=== PATIENT | female | born 1970 | race Caucasian/White ===

== ENCOUNTER 2020-08-18 15:48 | Outpatient (REF) | payer MEDICAID, SELFPAY ==
--- NOTE | 2020-08-18 16:02 | XR_ITS ---
EXAMINATION: XR lumbar spine 4V min, XR hip RT min 2V CLINICAL INFORMATION: Right-sided back pain. Right hip pain. COMPARISON: Lumbosacral spine dated 08/30/17. TECHNIQUE: Lumbosacral spine 3 views. Right hip 2 views. FINDINGS: LUMBOSACRAL SPINE: Severe degenerative disc disease at L4-L5 has progressed from the prior study. There is loss of the normal disc space with endplate sclerosis and marginal osteophytosis. Grade 1 anterolisthesis of L4 on L5 is unchanged. Disc spaces are otherwise well-maintained. The sacroiliac joints are unremarkable in appearance. The paravertebral soft tissues are unremarkable. RIGHT HIP: The femoral head is well contained within a normally formed acetabulum. The joint space appears well-maintained. No abnormality is demonstrated. XR/XR lumbar spine 4V min IMPRESSION: 1. Severe degenerative disc disease at L4-L5 with interval progression. Otherwise unremarkable appearance of the lumbosacral spine. 2. Unremarkable examination of the right hip.
--- NOTE | 2020-08-18 16:03 | XR_ITS ---
EXAMINATION: XR lumbar spine 4V min, XR hip RT min 2V CLINICAL INFORMATION: Right-sided back pain. Right hip pain. COMPARISON: Lumbosacral spine dated 08/30/17. TECHNIQUE: Lumbosacral spine 3 views. Right hip 2 views. FINDINGS: LUMBOSACRAL SPINE: Severe degenerative disc disease at L4-L5 has progressed from the prior study. There is loss of the normal disc space with endplate sclerosis and marginal osteophytosis. Grade 1 anterolisthesis of L4 on L5 is unchanged. Disc spaces are otherwise well-maintained. The sacroiliac joints are unremarkable in appearance. The paravertebral soft tissues are unremarkable. RIGHT HIP: The femoral head is well contained within a normally formed acetabulum. The joint space appears well-maintained. No abnormality is demonstrated. XR/XR hip RT min 2V IMPRESSION: 1. Severe degenerative disc disease at L4-L5 with interval progression. Otherwise unremarkable appearance of the lumbosacral spine. 2. Unremarkable examination of the right hip.
== END 2020-08-18 15:49 | disposition home or self-care (01) ==
LOC: HO.XRAY 15:48
PROVIDERS: PCP Family Medicine; Visit Provider Family Medicine
DX: M25.551 Pain in right hip (principal); M54.41 Lumbago with sciatica, right side; M79.604 Pain in right leg
CPT/HCPCS: 72110; 73502

== ENCOUNTER 2020-08-20 11:26 | Emergency (ER) | payer MEDICAID, SELFPAY ==
[2020-08-20 11:38] VITALS: BP 132/84; PULSE 84; PULSE 86; RESP 16; RESP 18; TEMP 36.6; TEMP 37.1; O2SAT 98; O2SAT 99; BMI 26.7
--- NOTE | 2020-08-20 11:45 | ED_ITS ---
HPI - General Adult General Chief complaint: General Medical Stated complaint: lump on breast Time Seen by Provider: 08/20/20 11:41 Source: patient Mode of arrival: ambulatory Limitations: no limitations History of Present Illness MD complaint: lump on left breast Onset (ago): day(s) (3) Location: chest (left breast next to sternum) Radiation: non-radiation Severity: moderate Quality: burning and aching Pain Consistency: constant Relieving factors: none Exacerbating factors: none Associated symptoms: denies other symptoms Treatments prior to arrival: other (had sebaceous cyst with US and mammogram - no fam hx of cancer, last 3 days cyst became infected) Related Data Previous Rx's Medication Instructions Recorded cephalexin 500 mg PO TID 7 Days #21 cap 08/20/20 doxycycline hyclate 100 mg PO BID 7 Days #14 cap 08/20/20 hydrocodone-acetaminophen 1 tab PO Q6H PRN #12 tab 08/20/20 ondansetron 4 mg PO Q8H PRN #20 tab 08/20/20 Allergies Allergy/AdvReac Type Severity Reaction Status Date / Time No Known Allergies Allergy Unverified 06/29/20 15:27 Review of Systems Review of Systems: Constitutional : No Fever, No Chills ENT/Mouth : No sore throat, No Rhinorrhea Eyes: No Eye Pain, No Swelling, No Redness Cardiovascular : No Chest Pain, No SOB Respiratory : No Cough, No Sputum Gastrointestinal : No Nausea, No Vomiting, No Diarrhea, No abdominal Pain Genitourinary : No Dysuria, No Hematuria Musculoskeletal : No joint pain, No Myalgias, No Joint Swelling Skin : pos Skin Lesions, positive skin rash Neuro : No Weakness, No Numbness, No Headache Psych : No Anxiety, No Depression Heme/Lymph: No Bruising, No Bleeding,No Lymphadenopathy Endocrine : No Polyuria, No Polydipsia All other systems reviewed and are negative PMFSH Past Medical History Medical History No known health problems Social History Social History (Updated 08/20/20 @ 11:46 by Mira Madison DO) Smoking Status: Current every day smoker Smoked in Last 30 Days: Yes Use of substances other than those prescribed or required for medical reasons: No Substance Use Type: Marijuana Substance Use Frequency: Occasionally Last Used Substance: Days (ago) Any prior treatment program specific to substance use: No Advance Directives: No Advance Directives Information Provided: Yes Physical Exam Vital Signs: Vital Signs: Last Vital Signs Temp 98.7 F 08/20/20 11:38 Pulse 86 08/20/20 11:38 Resp 18 08/20/20 11:38 BP 132/84 08/20/20 11:38 Pulse Ox 99 08/20/20 11:38 Body Mass Index 26.7 Appearance: Alert. Oriented X3. No acute distress. Eyes: Pupils equal, round and reactive to light. ENT: Pharynx normal. Neck: Normal inspection. Neck supple. CVS: Normal heart rate and rhythm. Pulses normal. Respiratory: No respiratory distress. Breath sounds normal. Chest: L breast 3 cm superficial fluctuant area with small overlying erythema no drainage, does not involve areola or nippe Abdomen: Soft and nontender. Skin: Skin warm and dry. Normal skin color. Normal skin turgor. Extremities: No lower extremity edema. No calf ttp Neuro: Oriented X 3. No motor deficit. No sensory deficit. Procedures Abscess I/D Site: chest Side (if applicable): left Local Anesthetic: lidocaine 1% and other anesthetic (LMX) Amount of anesthesia used (mL): 5 Technique: needle aspiration Amount of fluid expressed (mL): 4 Sent for culture/gram staining?: No Irrigation: No Packing used?: none Medical Decision Making MDM Narrative Medical decision making narrative: 50 yo female with known sebaceous cyst on L chest wall - now infected with abscess no systemic symptoms, not diabetic will need labs, zosyn, I/D anticipate DC home, prior US and mammogram of that area, not toxic appearing, does not involve areola or nipple Lab Data Result diagrams: 08/20/20 11:53 08/20/20 11:53 Labs: Lab Results 08/20/20 08/20/20 08/20/20 Range/Units 11:53 11:53 11:53 WBC 7.6 (4.8-10.8) X10*3/uL RBC 4.24 (4.20-5.50) X10*6/uL Hgb 12.3 (12.0-16.0) g/dl Hct 37.0 (37-47) % MCV 87.3 (80-98) fL MCH 29.0 (27.0-33.0) pg MCHC 33.2 (31.0-35.0) g/dl RDW 12.8 (11.0-16.0) % Plt Count 247 (160-400) X10*3/uL MPV 10.3 (9.4-12.3) fL Immature Gran % (Auto) 0.3 (0.0-0.4) % Neut % (Auto) 69.5 (45-73) % Lymph % (Auto) 20.1 (20-40) % [place] % (Auto) 6.3 (2-11) % Eos % (Auto) 3.3 (0-4) % Baso % (Auto) 0.5 (0-2) % Lymph # (Auto) 1.5 (1.2-4.9) X10*3/uL [place] # (Auto) 0.5 (0.1-1.2) X10*3/uL Eos # (Auto) 0.3 (0.0-0.4) X10*3/uL Baso # (Auto) 0.0 (0.0-0.2) X10*3/uL Abs Immat Gran (auto) 0.02 (0.00-0.03) X10*3/uL Absolute Neuts (auto) 5.3 (2.0-8.3) X10*3/uL Absolute Nucleated RBC 0.000 (0.0-0.012) X10*3/uL Nucleated RBC % (auto) 0.0 (0.0-0.2) /100WBC Hold Blue Top SEE NOTE Sodium 140 (135-145) mmol/L Potassium 3.5 (3.3-5.1) mmol/l Chloride 108 (96-108) mmol/L Carbon Dioxide 24 (22-29) mmol/L Anion Gap 12 (12-20) BUN 16 (9-16) mg/dL Creatinine 0.72 (0.5-1.4) mg/dL Estim Creat Clear Calc 92.4 Estimated GFR > 60 Random Glucose 108 (60-115) mg/dL Calcium 8.6 (8.4-10.2) mg/dL Discharge Plan Discharge Clinical Impression: Abscess Patient Disposition: Home, Self-Care Instructions: Abscess (ED) Additional Instructions: return to ED for any worsening symptoms or concerns it is okay to shower but do not soak area in tub, you need to see a surgeon for this Prescriptions: New hydrocodone-acetaminophen 5-325 mg tablet 1 tab PO Q6H PRN (Reason: pain) Qty: 12 RF: 0 ondansetron 4 mg tablet,disintegrating 4 mg PO Q8H PRN (Reason: nausea and vomiting) Qty: 20 RF: 0 cephalexin 500 mg capsule 500 mg PO TID 7 Days Qty: 21 RF: 0 doxycycline hyclate 100 mg capsule 100 mg PO BID 7 Days Qty: 14 RF: 0 Referrals: Bella Simeon MD [Physician] - 2 days Stand Alone Forms: Work/School Release
[2020-08-20] MEDS: 0.9 % Sodium Chloride 1,000 ML 999 ML IVCONT (12:02)
[2020-08-20] MEDS: ondansetron HCL 4 MG/2 ML VIAL IVPUSH (12:03)
[2020-08-20] MEDS: Morphine Sulfate 4 MG/ML CARTRIDGE IVPUSH (12:03)
[2020-08-20 12:04] LABS: MANUAL DIFF FLAG NO
[2020-08-20 12:05] LABS: Basophils Percent Auto 0.5 % (0-2); Eosinophils Absolute Auto 0.3 X10*3/uL (0.0-0.4); Eosinophils Percent Auto 3.3 % (0-4); Hemoglobin 12.3 g/dl (12.0-16.0); Imm Gran Abs Auto 0.02 X10*3/uL (0.00-0.03); Imm Gran Pct Auto 0.3 % (0.0-0.4); Lymphocytes Absolute Auto 1.5 X10*3/uL (1.2-4.9); Lymphocytes Percent Auto 20.1 % (20-40); Mean Corpuscular HGB Conc 33.2 g/dl (31.0-35.0); Mean Corpuscular Volume 87.3 fL (80-98); Mean Platelet Volume 10.3 fL (9.4-12.3); Monocytes Absolute Auto 0.5 X10*3/uL (0.1-1.2); Monocytes Percent Auto 6.3 % (2-11); Neutrophils Absolute Auto 5.3 X10*3/uL (2.0-8.3); Neutrophils Percent Auto 69.5 % (45-73); Platelet Count 247 X10*3/uL (160-400); Red Blood Count 4.24 X10*6/uL (4.20-5.50); Red Cell Distribution Width 12.8 % (11.0-16.0); White Blood Count 7.6 X10*3/uL (4.8-10.8)
[2020-08-20] MEDS: Piperacillin Sodium/Tazobactam 3.375 GM in 0.9 % Sodium Chloride 50 ML IV (12:06)
[2020-08-20] MEDS: Lidocaine HCl 1 % 20 ML VIAL 5 ML SUBCUT (12:07)
[2020-08-20] MEDS: Lidocaine 4 % Cream KIT 1 APPL TOPICAL (12:10)
[2020-08-20] MEDS: Lidocaine HCl 1 % MPF 5 ML VIAL (12:16)
[2020-08-20 12:19] LABS: Anion Gap 12 (12-20); Blood Urea Nitrogen 16 mg/dL (9-16); Calcium 8.6 mg/dL (8.4-10.2); Carbon Dioxide 24 mmol/L (22-29); Chloride 108 mmol/L (96-108); Creatinine Clr Calc Pharmacy 92.4; Estimated Glomerular Filt Rate > 60; Glucose Random 108 mg/dL (60-115); Potassium 3.5 mmol/l (3.3-5.1); Sodium 140 mmol/L (135-145)
[2020-08-20 12:50] VITALS: BP 129/90; PULSE 78; RESP 14; TEMP 37.1; O2SAT 100
[2020-08-20] MEDS: HYDROcodone Bit/Acetam 5/325 TABLET 1 TAB PO (13:01)
== END 2020-08-20 13:14 | disposition home or self-care (01) ==
PROVIDERS: Emergency Provider Emergency Medicine; PCP Family Medicine
DX: N61.1 Abscess of the breast and nipple (principal); N63.0 Unspecified lump in unspecified breast; Z79.899 Other long term (current) drug therapy
CPT/HCPCS: 10060; 36415; 80048; 85025; 96365; 96375; 99284; J2270; J2405; J2543

== ENCOUNTER → 2020-08-30 14:26 | Outpatient (BNVA) | payer MEDICAID, SELFPAY | PROVIDERS: PCP Family Medicine; Referring Provider Family Medicine; Visit Provider Surgery | DX: N60.82 Other benign mammary dysplasias of left breast (principal); Z98.890 Other specified postprocedural states | CPT/HCPCS: 99202 ==

== ENCOUNTER 2020-09-29 09:00 | Outpatient (RCR) | payer MEDICAID, SELFPAY ==
--- NOTE | 2020-09-15 16:05 | MHC.PT.EP ---
[facility] [place] Office [place] Office [place] Office [address] Magdaleno Montanez [address] [phone] F: [phone] F: [phone] F: [phone] F: [phone] Physical Therapy Plan of Care Date of Evaluation: 09/15/20 Date of Surgery: NA Diagnosis: back pain Assessment: Pt presents with low back pain and leg pain that began about 6 months ago. She has associated radiculopathy and pain in the right LE. She has poor sitting posture, poor functional mobility, impaired sleeping position, and impaired sitting posture, impaired functional mobility. She has been limited at work, and limited at home. She has pain while driving, walking, sitting, laying down. She is having poor sleep. She is a good candidate for Physical Therapy. Frequency and Duration: The patient will be seen 2x/week x 4 week Short Term Goals: 1.Pt to able to demonstrate proper sitting posture with the use of a lumbar roll to decrease aggravating factors. 2. Pt to be able to demonstrate proper posture for common leisure activities such as crocheting and phone/tablet use. 3. For the patient to demonstrate proper upright sitting posture with use of the lumbar roll to improve compliance and carryover. Penitentiary Goals: 4 weeks - The patient to demonstrate proper lifting mechanics for household chore activities to show improved functional mobility. 4 weeks - The patient to report no leg or hip pain in order to show centralization of pain and reduction of lumbar derangement 4 weeks - Pt to be able to demonstrate self management of lumbar pain by demonstration of HEP. Treatment Plan: Modalities to reduce pain, spasms and effusion. Manual therapy to restore motion and function. Therapeutic exercise to improve strength and flexibility. Neuromuscular re-education for posture and balance. Therapeutic activities to return to functional activities of daily living. Please sign and return to therapist. Thank you for your referral.
== END 2020-12-22 15:20 | disposition other institution (70) ==
LOC: HO.PT 09:00
PROVIDERS: PCP Family Medicine; Visit Provider Family Medicine
DX: M54.41 Lumbago with sciatica, right side (principal)
CPT/HCPCS: 97110; 97112; 97116; 97140; 97162; 97535

== ENCOUNTER → 2020-10-20 09:31 | Outpatient (BNVA) | payer MEDICAID, SELFPAY | PROVIDERS: PCP Family Medicine; Visit Provider Surgery | DX: N60.82 Other benign mammary dysplasias of left breast (principal) | CPT/HCPCS: 99212 ==

== ENCOUNTER 2020-10-30 08:51 | Day surgery (SDC) | payer MEDICAID, SELFPAY ==
[2020-10-30 09:22] VITALS: BP 128/86; PULSE 80; RESP 16; TEMP 36.7; O2SAT 98; BMI 22.7
[2020-10-30] MEDS: Lactated Ringers 1,000 ML 100 ML IVCONT (09:38)
[2020-10-30] MEDS: ceFAZolin Sodium/Dextrose,Iso 2 GM/50 ML PIGGYBACK IV (09:38)
--- NOTE | 2020-10-30 10:04 | P.CONAN_ITS ---
[facility] Past Medical History Medical History Anxiety and depression Back pain with right-sided sciatica Menometrorrhagia No known health problems Restless legs syndrome (RLS) Smoker Family History Family History Brother Hx of cancer of lung Mother Hx of ovarian cancer Family history of problems with anesthesia: No Surgical History Surgical History (Updated 10/30/20 @ 10:06 by Nataliya Stone) H/O colonoscopy History of removal of ovarian cyst History of Problems with Anesthesia: No Social History Social History (Updated 10/30/20 @ 10:23 by Nataliya Stone) Smoking Status: Current every day smoker Cigarettes Per Day: 6 Smoked in Last 30 Days: Yes Use of substances other than those prescribed or required for medical reasons: No Substance Use Type: Marijuana Advance Directives: No Advance Directives Information Provided: Yes Meds Allergies Allergy/AdvReac Type Severity Reaction Status Date / Time No Known Allergies Allergy Verified 10/20/20 09:52 Home Medications Medication Instructions Recorded Confirmed Type No Known Home Meds 10/20/20 10/20/20 History Exam Exam Date and Time: October 30, 2020 1004 Height,Weight and Vital Signs: Height 5 ft 7 in Weight 65.771 kg Last Vital Signs Temp 98.0 F 10/30/20 09:22 Pulse 80 10/30/20 09:22 Resp 16 10/30/20 09:22 BP 128/86 10/30/20 09:22 Pulse Ox 98 10/30/20 09:22 Airway Mallampati Class: II TM Dist: >3cm Neck ROM: Full Loose/Missing/Broken Teeth: No (5 crowns intact) Heart: RRR Lungs: CTAB Assessment and Plan Assessment Anesthesia Assessment: Anesthesia Plan Discussed and Chart Reviewed Final Anesthetic Review NPO: Yes ASA Class: II Final Preanesthetic Review: No Changes in Pt Med Stat, Meds/Allgs Chart Reviewed, Consent Obtained/Reviewed and Anes Risks/Benef Reviewed Patient Risk: Low Procedure Risk: Low Assessment/Block/Sedation in SS: Assess/Block/Sedation-SS Anesthetic Plan Anesthetic Plan: MAC: Disposition: Standard PACU
--- NOTE | 2020-10-30 11:00 | MHC.SHP ---
Pre-Procedural Eval Section A The patient is an INPATIENT: No Changes since office visit: Yes Patient answered all questions; No Cold of Flu in the past 2 weeks, No New Medical Problems and No Changes in Medication The History & Physical has been completed within 30 days and I have reviewed it.: Yes Section B Chief Complaint: sebaceous cyst of skin of left breast Allergies: Allergies Allergy/AdvReac Type Severity Reaction Status Date / Time No Known Allergies Allergy Verified 10/20/20 09:52 Plan Diagnosis/Plan: Unchanged I have reviewed the history and physical and performed a pertinent physical examination on my patient. No changes have occurred unless specified.
--- NOTE | 2020-10-30 11:46 | P.BOP_ITS ---
Brief Operative Note Date of Service: 10/30/20 Pre-op diagnosis: Left breast skin cyst Post-op diagnosis: same Procedure: Excision of left breast skin cyst Implants: none Surgeon: Shaheed Rose MD Anesthesia: MAC Central Office Inspector: Riana Granado Estimated blood loss (mL): 2 Pathology: other (left breast skin cyst) Condition: stable Disposition: PACU
--- NOTE | 2020-10-30 11:48 | P.OP_ITS ---
Operative Note Operative Note Date of Service: 10/30/20 Narrative: Preoperative diagnosis: Left breast skin cyst Postoperative diagnosis: Same Procedure: Excision of left breast skin cyst Surgeon: Shaheed Rose MD Manager Treasury: ARETHA Chavarria Anesthesia: MAC Indications for procedure: 50 year old female with a history of an infected skin cyst in the 9 o'clock location left breast, now presenting for excision of the left breast cyst. Operative findings: 1 cm left breast inclusion cyst Specimen: Cyst left breast Estimated blood loss: 2 mL Complications: none Procedure details: Patient was brought to the OR and placed in a supine position. After administering MAC the patient's left breast was prepped with ChloraPrep and draped in a sterile fashion. Local anesthesia consisting of 0.75% Sensorcaine with epinephrine was infiltrated around the cyst. An ell iptical incision was made around the cyst oriented transversely and the incision was carried down to the subcutaneous tissue and around the cyst wall. The cyst was excised and sent to pathology for further examination. Hemostasis was assured with electrocautery. The wounds were irrigated with saline solution and suctioned dry. Dermis was reapproximated with 3-0 Polysorb and skin closed with a 4-0 Polysorb suture in a running subcuticular fashion. Steristrips and tegaderm were applied. The patient tolerated the procedure well. Sponge instrument and needle counts reported as correct. The patient was transferred to PACU in stable condition.
[2020-10-30 11:55] VITALS: BP 117/69; PULSE 89; RESP 16; TEMP 37.3; O2SAT 98
[2020-10-30 12:10] VITALS: BP 139/73; PULSE 80; RESP 16; TEMP 36.8; O2SAT 99
--- NOTE | 2020-10-30 12:31 | HO.POSTANES ---
Post Anesthesia Evaluation Post Anesthesia Evaluation Vital Signs: Vital Signs Temp Pulse Resp BP Pulse Ox 10/30/20 12:10 98.3 F 80 16 139/73 99 10/30/20 11:55 99.1 F 89 16 117/69 98 10/30/20 09:22 98.0 F 80 16 128/86 98 Anesthesia: Monitored Mental Status: Awake Pain Control: Satisfactory Nausea/Vomiting: None Hydration: Adequate Anesthesia-Related Issues: No Anes. Related Issues
== END 2020-10-30 12:52 | disposition home or self-care (01) ==
PROVIDERS: PCP Family Medicine; Visit Provider Surgery
PROC: (CPT 11402; principal; 2020-10-30 10:50)
DX: N60.82 Other benign mammary dysplasias of left breast (principal); F17.210 Nicotine dependence, cigarettes, uncomplicated; F12.90 Cannabis use, unspecified, uncomplicated
CPT/HCPCS: 11402; 88304; 88307; J0690; J2250; J3010

== ENCOUNTER 2020-11-17 15:47 | Outpatient (REF) | payer MEDICAID, SELFPAY ==
--- NOTE | ~2020-11-17 | MR_ITS ---
EXAMINATION: MR LUMBAR SPINE WITHOUT CONTRAST CLINICAL INFORMATION: Worsening pain, lumbosacral, radiating down both legs. COMPARISON: Plain films of the lumbar spine 08/18/2020. TECHNIQUE: MRI of the lumbar spine was obtained using routine sequences without contrast. FINDINGS: VERTEBRAL BODIES AND PARASPINAL STRUCTURES: There is a mild levoscoliosis. There is a 6 mm grade 1 anterolisthesis of L4 on L5, demonstrated on prior imaging. There is marked narrowing of intervertebral disc height at this level. There are degenerative endplate contour changes at this level mild to moderate edematous endplate signal changes. Intervertebral disc height is mildly narrowed at L2-L3. The vertebral bodies have normal height and contour and no fractures are demonstrated. There is a small focus of increased T1 and T2 signal in the body of T12 consistent with a hemangioma. Overall, marrow signal is homogenous. The visualized retroperitoneal structures are unremarkable. The uterus is mildly bulky and retroverted. CONUS MEDULLARIS AND CAUDA EQUINA: Normal, terminating at the level of L1. The lower thoracic spinal cord appears normal. The cauda equina nerve roots and filum terminale appear normal. SPINAL LEVELS: L1-L2: There is mild to moderate bilateral facet arthropathy. Posterior disc contour is normal. The neural foramina are patent. There is no central stenosis. L2-L3: There is moderate to moderate bilateral facet arthropathy. There is a left-sided foraminal disc protrusion without definite impingement on the exiting left L2 nerve root. There is no central stenosis. L3-L4: There is moderate to severe bilateral facet arthropathy with ligamenta flava hypertrophy and facet joint effusions. There is a left foraminal disc protrusion extending far laterally with impingement on the extraforaminal left L3 nerve root. There is narrowing of the bilateral subarticular recesses. There is no central stenosis. L4-L5: There is severe bilateral facet arthropathy with ligamenta flava hypertrophy and facet joint effusions, more prominent on the left. There is a synovial cyst anterolaterally off the left facet joint. There is unroofing of the disc as a result of the anterolisthesis. There is a prominent right-sided disc protrusion with mass effect on the exiting right L4 nerve root. There is narrowing of the bilateral subarticular recesses, and there is severe central stenosis. L5-S1: There is mild bilateral facet arthropathy. There is a small left paracentral disc protrusion with mild distortion of the ventral thecal sac. The neural foramina are patent. There is no central stenosis. MR/MR lumbar spine wo con IMPRESSION: 1. There is a grade 1 anterolisthesis of L4 on L5 secondary to severe facet arthropathy. There is a prominent right-sided disc protrusion impinging on the exiting right L4 nerve root, and there is narrowing of the bilateral subarticular recesses. There is severe central stenosis, and there are edematous endplate signal changes. 2. At L3-L4 there is facet arthropathy and there is a left foraminal disc protrusion extending far laterally. There is narrowing of the bilateral subarticular recesses, but there is no central stenosis.
== END 2020-11-17 15:48 | disposition home or self-care (01) ==
LOC: HO.MRI 15:47
PROVIDERS: Visit Provider Internal Medicine
DX: M54.41 Lumbago with sciatica, right side (principal)
CPT/HCPCS: 72148

== ENCOUNTER 2021-12-13 16:31 | Outpatient (REF) | payer MEDICAID, SELFPAY ==
--- NOTE | ~2021-12-13 | MR_ITS ---
EXAMINATION: MR LUMBAR SPINE WITHOUT AND WITH CONTRAST CLINICAL INFORMATION: Back and leg pain. COMPARISON: None TECHNIQUE: MRI of the lumbar spine was obtained using routine sequences with and without contrast. Intravenous contrast: Gadavist 7.5 mL FINDINGS: VERTEBRAL BODIES AND PARASPINAL STRUCTURES: There is a mild leftward curvature of the midlumbar spine. No compression fractures identified. The patient has undergone posterior lumbar interbody fusion at the L4-L5 level with improvement in degree of anterolisthesis. Decompressive laminectomy also evident at this level. There are extensive chronic degenerative endplate changes at this level as well. The remainder of the marrow signal is within normal limits. No suspicious abnormal enhancement identified. Small hepatic cyst partially visualized. The imaged bony pelvis appears normal. CONUS MEDULLARIS AND CAUDA EQUINA: Normal, terminating at the level of L1. No lower cord signal abnormality is seen. The cauda equina nerve roots appear normal. No pathologic intradural enhancement identified. SPINAL LEVELS: L1-L2: No significant disc pathology. Mild facet arthrosis. No central canal stenosis or foraminal narrowing. L2-L3: No disc abnormality. Hypertrophic facet arthropathy without central canal stenosis or foraminal narrowing. L3-L4: Mild broad-based disc bulge and hypertrophic facet arthrosis with mild central canal stenosis and very mild left foraminal narrowing. L4-L5: Extensive degenerative endplate changes with interbody and posterior fusion hardware in place. Decompression of the canal with postlaminectomy changes. No central canal stenosis. Moderate right foraminal narrowing, improved since the preoperative study with enhancing scar tissue in the operative bed. L5-S1: No disc pathology. Moderate facet arthrosis without central canal stenosis. Mild left foraminal narrowing. MR/MR lumbar spine wo/w con IMPRESSION: Status post posterior lumbar interbody fusion with hardware instrumentation at the L4-L5 level with significant improvement in degree of anterolisthesis. Decompressive laminectomy. Moderate right foraminal narrowing, improved since the prior study with scar tissue at the operative site. No compression fractures. Mild central canal stenosis and mild disc bulge with facet arthropathy at the L3-L4 level.
== END 2021-12-13 16:32 | disposition home or self-care (01) ==
LOC: HO.MRI 16:31
PROVIDERS: Visit Provider Family Medicine
DX: G89.29 Other chronic pain (principal); M54.41 Lumbago with sciatica, right side; M54.42 Lumbago with sciatica, left side; R10.30 Lower abdominal pain, unspecified
CPT/HCPCS: 72158; A9585

== ENCOUNTER 2022-01-04 14:15 | Outpatient (REF) | payer MEDICAID, SELFPAY ==
--- NOTE | ~2022-01-04 | MR_ITS ---
EXAMINATION: MR PELVIS WITHOUT AND WITH CONTRAST CLINICAL INFORMATION: Pain. History of fibroids and removal of ovarian cyst. COMPARISON: None TECHNIQUE: Sagittal axial and coronal sequences through the pelvis with and without contrast. The patient received 7.5 mL intravenous Gadavist contrast. FINDINGS: The uterus is enlarged and measures 10.4 x 0.2 x 8 cm in sagittal AP and transverse dimension. The endometrium does not appear thickened measuring 4 mm. The junctional zone appears thickened anteriorly measuring up to 2.7 cm with small cystic areas suggestive of adenomyosis of the uterus. There are several small focal uterine lesions. These are low to intermediate signal on T1-weighted sequences, low signal on T2-weighted sequences and demonstrates minimal enhancement. These measure 1 cm in the right upper uterine body or fundus, 1.5 cm in the anterior uterine fundus, 1 cm in the posterior uterine body, 1.5 x 2 cm in the posterior uterine body. 1 cm in the posterior uterine body and 1.4 x 2.4 cm in the left uterine body, suggestive of small fibroids or adenomyomas. The right ovary is normal-appearing and measures 1.9 x 3 x 2.2 cm in dimension. There is a 1.2 cm simple cyst or follicle in the right ovary. The left ovary is normal-appearing and measures 2.4 x 1.1 x 2 cm. There is a 1 x 0.8 cm simple cyst or follicle in the left ovary. There are nabothian cysts in the cervix. The bladder is normal. There is diverticulosis of the colon. No ascites or adenopathy is seen. Vascular structures are normal. There is a small right inguinal hernia containing fat. There are postsurgical changes to the lower lumbar spine with posterior fusion hardware seen at L4 and L5. There are mild degenerative changes at the hip joints, right greater than left. MR/MR pelvis wo/w con IMPRESSION: Enlarged uterus. Adenomyosis of the uterus. Multiple small focal uterine lesions suggestive of adenomyomas or small fibroids. Normal thickness endometrium. Normal-appearing ovaries. Diverticulosis of the colon. Small right inguinal hernia containing fat.
== END 2022-01-04 14:16 | disposition home or self-care (01) ==
LOC: HO.MRI 14:15
PROVIDERS: Visit Provider Family Medicine
DX: R10.2 Pelvic and perineal pain (principal); D21.9 Benign neoplasm of connective and other soft tissue, unspecified; R10.30 Lower abdominal pain, unspecified; M25.552 Pain in left hip; M54.41 Lumbago with sciatica, right side; Z98.890 Other specified postprocedural states
CPT/HCPCS: 72197; A9585

== ENCOUNTER 2022-01-21 11:31 | Outpatient (REF) | payer MEDICAID, SELFPAY ==
--- NOTE | ~2022-01-21 | US_ITS ---
EXAMINATION: US PELVIS CLINICAL INFORMATION: Pelvic pain COMPARISON: MR pelvis 01/04/2022 TECHNIQUE: Ultrasound of the pelvis is performed using both transabdominal and transvaginal transducers along with Doppler. Transvaginal imaging is performed due to inadequate visualization transabdominally. FINDINGS: Uterus: The uterus is anteverted and measures 10.2 x 6.1 x 7.8 cm. Uterus is enlarged and globular in appearance with phonation blind shadowing and endometrial cystic change suggestive of adenomyosis. Intramural and subserosal uterine myomas are again seen better characterized on prior recent pelvic MRI measuring up to 2.0 cm in the left body of the uterus. The double wall endometrial thickness is 0.6 cm. Adnexa: Both ovaries are visualized and are unremarkable in size and appearance. Trace physiologic free fluid in the pelvis. Right ovary measures 2.1 x 1.4 x 2.0 cm. Left ovary measures 2.8 x 1.6 x 2.9 cm. US/US pelvic and transvaginal IMPRESSION: Enlarged uterus with findings suggestive of adenomyosis. Intramural and subserosal myomas are again seen measuring up to 2.0 cm, better characterized on recent pelvic MRI, given the background of adenomyosis. Unremarkable sonographic appearance of the ovaries.
== END 2022-01-21 11:32 | disposition home or self-care (01) ==
LOC: HO.US 11:31
PROVIDERS: PCP Family Medicine; Visit Provider Family Medicine
DX: R10.2 Pelvic and perineal pain (principal); R10.30 Lower abdominal pain, unspecified; M25.559 Pain in unspecified hip
CPT/HCPCS: 76830; 76856

== ENCOUNTER 2022-02-08 12:52 | Emergency (ER) | payer MEDICAID, SELFPAY ==
[2022-02-08 13:06] VITALS: BP 155/99; PULSE 98; RESP 18; TEMP 36.6; O2SAT 98; BMI 23.5
--- NOTE | 2022-02-08 13:34 | ED_ITS ---
HPI - General Adult General Chief complaint: Abdominal Pain <ARTURO Avalos Last Filed: 02/08/22 14:35> Stated complaint: groin pain <ARTURO Avalos Last Filed: 02/08/22 14:35> Time Seen by Provider: 02/08/22 13:28 <ARTURO Avalos Last Filed: 02/08/22 14:35> Source: patient <ARTURO Avalos Last Filed: 02/08/22 14:35> Mode of arrival: ambulatory <ARTURO Avalos Last Filed: 02/08/22 14:35> Limitations: no limitations <ARTURO Avalos Last Filed: 02/08/22 14:35> History of Present Illness HPI narrative: Patient is a 51 year old female presenting to the emergency department today with bilateral groin pain. Patient states that the pain feels muscular and like she is doing the splits constantly. Patient states that she has seen her PCP and her PCP ordered a pelvic MRI and a pelvic US. Both of which showed fibroids but no muscular evidence of injury. Patient denies any dizziness, lightheadedness, abdominal pain, nausea, vomiting, fever, chills, blurry vision, double vision, loss of vision, chest pain, difficulty breathing, shortness of breath, back pain, patient denies any vaginal bleeding or discharge, night sweats, pain with urination, increased urinary frequency, increased urinary urgency, blood in her urine or stool, syncope or a near syncopal episode, recent trauma or falls, bowel incontinence, bladder incontinence, bowel retention, bladder retention, or any other complaints at this time. <ARTURO Avalos Last Filed: 02/08/22 14:35> Onset (ago): year(s) <ARTURO Avalos Last Filed: 02/08/22 14:35> Location: pelvis <ARTURO Avalos Last Filed: 02/08/22 14:35> Radiation: non-radiation <ARTURO Avalos Last Filed: 02/08/22 14:35> Severity: mild <ARTURO Avalos Last Filed: 02/08/22 14:35> Severity scale (1-10): 3 <ARTURO Avalos Last Filed: 02/08/22 14:35> Quality: dull <ARTURO Avalos - Last Filed: 02/08/22 14:35> Pain Consistency: constant <ARTURO Avalos - Last Filed: 02/08/22 14:35> Relieving factors: none <ARTURO Avalos - Last Filed: 02/08/22 14:35> Exacerbating factors: none <ARTURO Avalos - Last Filed: 02/08/22 14:35> Associated symptoms: denies other symptoms <ARTURO Avalos - Last Filed: 02/08/22 14:35> Treatments prior to arrival: none <ARTURO Avalos - Last Filed: 02/08/22 14:35> Related Data Home medications: Previous Rx's Medication Instructions Recorded oxycodone 5 mg tablet 5 mg PO Q6H PRN #5 tab 10/30/20 <ARTURO Avalos - Last Filed: 02/08/22 14:35> Allergies/adverse reactions: Allergies Allergy/AdvReac Type Severity Reaction Status Date / Time No Known Allergies Allergy Verified 10/20/20 09:52 <ARTURO Avalos - Last Filed: 02/08/22 14:35> Review of Systems Constitutional: Constitutional: Reports no additional constitutional complaints, Denies chills, Denies fever(s) and Denies night sweats <ARTURO Avalos - Last Filed: 02/08/22 14:35> Eyes: Eyes: Reports no additional eye complaints, Denies blurry vision, Denies change in vision, Denies diplopia, Denies eye discharge, Denies loss of vision and Denies eye pain <ARTURO Avalos - Last Filed: 02/08/22 14:35> ENT: Denies dizziness <ARTURO Avalos - Last Filed: 02/08/22 14:35> Cardiovascular: Cardiovascular: Reports no additional cardiovascular c omplaints, Denies chest pain, Denies lightheadedness, Denies Loss of Consciousness and Denies dyspnea <ARTURO Avalos - Last Filed: 02/08/22 14:35> Respiratory: Respiratory: Reports no additional respiratory complaints and Denies dyspnea <ARTURO Avalos - Last Filed: 02/08/22 14:35> Gastrointestinal: Gastrointestinal: Reports no additional gastrointestinal complaints, Denies abdominal pain, Denies melena, Denies hematochezia, Denies change in bowel habits and Denies change in stool character <ARTURO Avalos Last Filed: 02/08/22 14:35> Genitourinary: Genitourinary: Denies hematuria, Denies urinary frequency, Denies dysuria, Denies urinary incontinence, Denies urinary hesitancy and Denies urinary urgency <ARTURO Avalos - Last Filed: 02/08/22 14:35> Musculoskeletal: Musculoskeletal: Reports no additional musculoskeletal complaints, Denies numbness and Denies tingling <ARTURO Avalos Last Filed: 02/08/22 14:35> Comments: bilateral groin pain <ARTURO Avalos - Last Filed: 02/08/22 14:35> Neurologic: Denies dizziness, Denies loss of vision, Denies numbness and Denies tingling <ARTURO Avalos Last Filed: 02/08/22 14:35> Psychiatric: Psychiatric: Reports no additional psychiatric complaints <ARTURO Avalos Last Filed: 02/08/22 14:35> Endocrine: Endocrine: Reports no additional endocrine complaints <ARTURO Avalos Last Filed: 02/08/22 14:35> Hematologic/Lymphatic: Hematologic/Lymphatic: Reports no additional hematologic/lymphatic complaints <ARTURO Avalos Last Filed: 02/08/22 14:35> Allergic/Immunologic: Allergic/Immunologic: Reports no additional allergic/immunologic complaints <ARTURO Avalos Last Filed: 02/08/22 14:35> [facility]LY [facility] Past Medical History Attestation statement: The following information was validated with the patient. <ARTURO Avalos Last Filed: 02/08/22 14:35> Source: old records reviewed <ARTURO Avalos Last Filed: 02/08/22 14:35> Medical History: Medical History Anxiety and depression Back pain with right-sided sciatica Menometrorrhagia No known health problems Restless legs syndrome (RLS) Smoker <ARTURO Avalos Last Filed: 02/08/22 14:35> Surgical History: Surgical History H/O colonoscopy History of removal of ovarian cyst <ARTURO Avalos - Last Filed: 02/08/22 14:35> Family History Family History: Family History Brother Hx of cancer of lung Mother Hx of ovarian cancer <ARTURO Avalos - Last Filed: 02/08/22 14:35> Social History Social History: Social History Cigarettes Per Day: 6 Substance Use Type: Marijuana Advance Directives: No Advance Directives Information Provided: No Patient : No <ARTURO Avalos - Last Filed: 02/08/22 14:35> Physical Exam ED Vital Signs: Vital Signs - 24 hr 02/08/22 13:06 Temperature 98 F Pulse Rate 98 Respiratory Rate 18 Blood Pressure 155/99 H Pulse Oximetry 98 BMI result Body Mass Index 23.5 <ARTURO Avalos - Last Filed: 02/08/22 14:35> Const General: cooperative, no acute distress, alert and awake <ARTURO Avalos - Last Filed: 02/08/22 14:35> Nutritional Appearance: well nourished <ARTURO vAalos - Last Filed: 02/08/22 14:35> Orientation/consciousness: patient oriented x3 <ARTURO Avalos - Last Filed: 02/08/22 14:35> Limitations: no limitations <ARTURO Avalos - Last Filed: 02/08/22 14:35> HENMT Head: Yes normal to inspection and Yes atraumatic <ARTURO Avalos - Last Filed: 02/08/22 14:35> Ears: hearing grossly normal bilaterally and external ears normal <ARTURO Avalos - Last Filed: 02/08/22 14:35> General nose exam: Normal external nose present, no nasal discharge noted and no epistaxis <ARTURO Avalos Last Filed: 02/08/22 14:35> Face and sinus: Yes normal facial exam, No abrasion and No laceration <ARTURO Avalos - Last Filed: 02/08/22 14:35> Mouth: Normal oral and palatal mucosa present, no drooling and no muffled voice <Daria Cast PA - Last Filed: 02/08/22 14:35> Eyes General: appearance normal, both eyes and all related structures <Daria Cast PA - Last Filed: 02/08/22 14:35> Periorbital: periorbital findings normal <Daria Cast PA - Last Filed: 02/08/22 14:35> Eyelids: Yes eyelids normal <Daria Cast PA - Last Filed: 02/08/22 14:35> Conjunctivae: conjunctivae normal <Daria Cast PA - Last Filed: 02/08/22 14:35> Pupils: Equal, round and reactive pupils present <Daria Cast PA - Last Filed: 02/08/22 14:35> EOM: EOMs intact bilaterally <Daria Cast PA - Last Filed: 02/08/22 14:35> Neck Neck: Yes normal visual inspection, Yes full ROM and Yes no lymphadenopathy <Daria Cast PA - Last Filed: 02/08/22 14:35> Chest Chest palpation & inspection: normal inspection of the chest <Daria Cast ID - Last Filed: 02/08/22 14:35> Resp Effort & Inspection: normal respiratory effort and able to speak in complete sentences <Daria Cast PA - Last Filed: 02/08/22 14:35> Auscultation: clear to auscultation bilaterally <Daria Cast ID - Last Filed: 02/08/22 14:35> GI Inspection: Yes normal to inspection <Daria Cast PA - Last Filed: 02/08/22 14:35> Neuro General: patient oriented x3 and moves all extremities <Daria Cast PA - Last Filed: 02/08/22 14:35> Cranial nerves: Yes Equal, round and reactive pupils present <Daria Cast PA - Last Filed: 02/08/22 14:35> Cognition (Neuro): normal cognition <Daria Cast PA - Last Filed: 02/08/22 14:35> Motor exam (neuro): 5/5 motor strength present throughout <Daria Botellojessica PA - Last Filed: 02/08/22 14:35> Sensory Exam: Normal double simultaneous stimulation for sensation <Daria Cast ID - Last Filed: 02/08/22 14:35> Coordination: dhfvgw-[id number]-nigr test normal <Daria Cast ID - Last Filed: 02/08/22 14:35> Extrem General: Yes normal to inspection, Yes full ROM and Yes capillary refill normal <Draia Cast ID - Last Filed: 02/08/22 14:35> Psych Appearance: grossly normal <Daria Cast ID - Last Filed: 02/08/22 14:35> Mental Status: mental status grossly normal <Daria Cast ID - Last Filed: 02/08/22 14:35> Affect: normal affect <Daria Cast ID - Last Filed: 02/08/22 14:35> Attitude: cooperative <Daria Cast ID - Last Filed: 02/08/22 14:35> Thought process: Normal thought process present <Daria CastARTURO Last Filed: 02/08/22 14:35> Thought content: Normal thought content present <Daria Cast [facility] Last Filed: 02/08/22 14:35> Insight: Good insight present (Psych) <Daria CastARTURO Last Filed: 02/08/22 14:35> Medical Decision Making MDM Narrative Medical decision making narrative: Patient is a 51 year old male presenting to the emergency department today with bilateral groin pain. Patient's physical exam was unremarkable. I explained my physical exam findings to the patient. I answered all questions asked by the patient. Patient was offered toradol but refused. Patient stated that she was concerned because she wasn't told her ultrasound or MRI results. I explained both results to the patient. Patient expressed concern about the mention of a hernia and I explained to her that a general surgeon would be a better resource for information on that however, there was no concern of hernia incarceration. I stressed the importance of the patient taking her medication as prescribed. I stressed the importance of the patient following up with her primary care iván meek, an orthopedist, and a general surgeon. I stressed the importance of the patient returning to the emergency department immediately if her symptoms were to worsen or if she were to develop any dizziness, shortness of breath, difficulty breathing, chest pain, blurry vision, loss of vision, nausea, vomiting, abdominal pain, fever, chills, back pain, or any other complaints. Patient verbalized agreement and understanding with this treatment plan and discharge. <ARTURO Avaols - Last Filed: 02/08/22 14:35> Differential Diagnosis Differential Diagnosis: groin strain <ARTURO Avalos - Last Filed: 02/08/22 14:35> Medical Records Medical records reviewed: Yes I reviewed the patient's medical records. <ARTURO Avalos - Last Filed: 02/08/22 14:35> Discharge Plan Discharge Clinical Impression: Groin strain <ARTURO Avalos - Last Filed: 02/08/22 14:35> Patient Disposition: Home, Self-Care <ARTURO Avalos - Last Filed: 02/08/22 14:35> Instructions: Groin Strain (ED) <ARTURO Avalos - Last Filed: 02/08/22 14:35> Additional Instructions: Follow up with your primary care provider, an orthopedic provider, and a general surgeon. Return to the emergency department immediately if your symptoms worsen or if you develop any dizziness, shortness of breath, difficulty breathing, chest pain, blurry vision, loss of vision, nausea, vomiting, abdominal pain, fever, chills, back pain, or any other complaints. <ARTURO Avalos - Last Filed: 02/08/22 14:35> Prescriptions: No Action oxycodone 5 mg tablet 5 mg PO Q6H PRN (Reason: pain) Qty: 5 0RF <ARTURO Avalos - Last Filed: 02/08/22 14:35> [place]: [facility] [place]Provider Group] [facility] [Provider Group] Evelyn Morales MD [Primary Care Provider] - <ARTURO Avalos - Last Filed: 02/08/22 14:35> Interventions: ED Discharge Assessment Last Done: 02/08/22 14:16 <ARTURO Avalos Last Filed: 02/08/22 14:35> Discharge Date/Time: 02/08/22 14:17 <ARTURO Avalos - Last Filed: 02/08/22 14:35> Print Language: Azeri <ARTURO Avalos - Last Filed: 02/08/22 14:35>
== END 2022-02-08 14:17 | disposition home or self-care (01) ==
PROVIDERS: Emergency Provider Internal Medicine; PCP Family Medicine
DX: S39.011A Strain of muscle, fascia and tendon of abdomen, initial encounter (principal); F17.210 Nicotine dependence, cigarettes, uncomplicated; X58.XXXA Exposure to other specified factors, initial encounter; Y93.9 Activity, unspecified; Y92.9 Unspecified place or not applicable; Y99.9 Unspecified external cause status; Z71.6 Tobacco abuse counseling
CPT/HCPCS: 96372; 99283; 99284

== ENCOUNTER 2022-02-25 13:20 | Outpatient (REF) | payer MEDICAID, SELFPAY ==
--- NOTE | ~2022-02-25 | MM_ITS ---
EXAMINATION: MM SCREENING DIGITAL BREAST TOMOSYNTHESIS, BILATERAL CLINICAL INFORMATION: Screening. Asymptomatic. The lifetime risk of breast cancer based on the Tyrer-Cuzick Model is 7%. COMPARISON: Mammography: 05/24/2020 TECHNIQUE: Digital breast tomosynthesis is performed in both the craniocaudal and mediolateral oblique views along with computer-aided detection (CAD). Synthesized 2D images are generated from the tomosynthesis. FINDINGS: The breasts are heterogeneously dense, which may obscure small masses (ACR BI-RADS breast composition Category c). There are no significant masses, abnormal calcifications, or other abnormalities. Parenchymal pattern is similar to prior exam. No architectural abnormality. The axilla and skin contours are unremarkable. MM/MM tomosynthesis screening BI IMPRESSION: No mammographic evidence of malignancy. ASSESSMENT: BI-RADS 1: Negative RECOMMENDATION: Routine annual mammography screening. This patient's information was entered into reminder system with a target due date for their next mammogram.
== END 2022-02-25 13:21 | disposition home or self-care (01) ==
LOC: HO.MAMMO 13:20
PROVIDERS: Visit Provider Family Medicine
DX: Z12.31 Encounter for screening mammogram for malignant neoplasm of breast (principal)
CPT/HCPCS: 77063; 77067

== ENCOUNTER 2022-03-25 14:52 | Outpatient (REF) | payer MEDICAID, SELFPAY ==
[2022-03-26 05:34] LABS: CT PCR NOT DETECTED (Not Detect.); NG PCR NOT DETECTED (Not Detect.)
[2022-03-26 13:11] LABS: BV Int Neg Control Negative (Negative); BV Int Pos Control Positive (Positive)
== END 2022-03-25 14:53 | disposition home or self-care (01) ==
LOC: HO.LAB 14:52
PROVIDERS: Visit Provider Advanced Practice Midwife
DX: Z11.3 Encounter for screening for infections with a predominantly sexual mode of transmission (principal); R10.2 Pelvic and perineal pain; Z20.2 Contact with and (suspected) exposure to infections with a predominantly sexual mode of transmission
CPT/HCPCS: 87480; 87491; 87510; 87591; 87660; 99202

== ENCOUNTER 2023-03-14 09:10 | Outpatient (REF) | payer MEDICAID, SELFPAY ==
--- NOTE | ~2023-03-14 | MM_ITS ---
EXAMINATION: MM SCREENING DIGITAL BREAST TOMOSYNTHESIS, BILATERAL CLINICAL INFORMATION: Screening. Asymptomatic. The lifetime risk of breast cancer based on the Tyrer-Cuzick Model is 7%. COMPARISON: Mammography: 02/25/2022, 05/24/2020, left breast ultrasound 05/24/2020. TECHNIQUE: Digital breast tomosynthesis is performed in both the craniocaudal and mediolateral oblique views along with computer-aided detection (CAD). Synthesized 2D images are generated from the tomosynthesis. FINDINGS: There are scattered areas of fibroglandular density (ACR BI-RADS breast composition Category b). Parenchymal pattern is similar to prior exam and there is no developing density or interval architectural abnormality or abnormal calcifications. The axilla are unremarkable. The intradermal lesion posterior medial left breast is no longer clearly demonstrated. MM/MM tomosynthesis screening BI IMPRESSION: No mammographic evidence of malignancy. ASSESSMENT: BI-RADS 1: Negative RECOMMENDATION: Routine annual mammography screening. This patient's information was entered into a reminder system with a target due date for their next mammogram.
== END 2023-03-14 09:11 | disposition home or self-care (01) ==
LOC: HO.MAMMO 09:10
PROVIDERS: Visit Provider Family Medicine
DX: Z12.31 Encounter for screening mammogram for malignant neoplasm of breast (principal)
CPT/HCPCS: 77063; 77067

== ENCOUNTER 2023-05-23 09:56 | Outpatient (AMB) | payer MEDICAID, SELFPAY ==
--- NOTE | 2023-05-23 10:00 | MHC.OFFVIS ---
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 Have a colonoscopy schedule for next month The patient agreed to use of a medical technologist hematology during this encounter. Scribed for AMAYA Cummings by Nahomy Hunt medical technologist hematology, on 05/23/2023 at 10:22 am EST. Golf [employer] Maker Required: No Information Interpreted: non-clinical & clinical Automotive Artist: Automotive Artist Present (Demetria BRICEÑO) Accompanied by: Self / Same As Patient Allergies No Known Allergies Allergy (Verified 05/23/23 10:06) HPI HPI Comments History of Present Illness Details She is a premenopausal woman presenting for annual exam. Patient admits she tries to eat a healthy diet including Calcium and Vitamin D. She stays active with exercise. Reports sporadic menses and LMP was 2 weeks ago. Currently no sexually active. Denies vaginal itching and irritation. STD screening offered; she declines. Denies family hx of breast, colon and ovarian cancer. Last pap smear 03/01/22. Last mammogram 03/14/23. Colonoscopy scheduled. 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 [employer] Sexual orientation: Straight/Heterosexual Gender identity: Female Female Reproductive History Menstrual Total pregnancies: 4 Number of Living Children: 1 Ab induced: 3 Date of last pap smear: 03/01/22 History of abnormal pap smear: No Date of Mammogram: 03/14/23 History of abnormal mammogram: No Physical Exam Vital Signs: Last Vital Signs BP 120/82 05/23/23 10:04 BMI result Body Mass Index 24.0 Const General: cooperative, healthy appearing, no acute distress, well developed and alert Orientation/consciousness: patient oriented x3 HEENT Head: Yes normal to inspection Eyes General: appearance normal, both eyes and all related structures Neck Neck: Yes normal visual inspection Thyroid: Thyroid normal Chest Chest palpation & inspection: normal inspection of the chest Breast/axilla inspection: normal inspection of the breasts (no puckering, dimpling, peau de orange, retraction, discharge, masses) Breast/axilla palpation: normal palpation of the breasts Resp Effort & Inspection: normal respiratory effort GI Inspection: Yes normal to inspection Palpation (GI): Soft to palpation (to palpation) Rectal Exam - Female: deferred General: Yes bladder normal to inspection External Female Exam: normal external appearance and normal appearance of the urethra Speculum Exam - Vagina: normal appearance of the vagina, normal palpation and normal vaginal discharge Speculum Exam - Cervix: normal appearance of the cervix and normal palpation Bimanual exam- vagina & uterus: normal palpation and normal palpation Bimanual Exam- Adnexa, other: normal adnexae and no masses Skin General skin exam: no rashes or lesions noted Neuro General: patient oriented x3 Cognition (Neuro): normal cognition Extrem General: Yes normal to inspection Psych Attitude: cooperative Thought process: Normal thought process present Assessment & Plan Assessment & Plan (1) Encounter for well woman exam: Code(s): Z01.419 - Encounter for gynecological examination (general) (routine) without abnormal findings Plan: Discussed: Current recommendations for pap smears per ASCCP guidelines Breast awareness and periodic self breast exams. Maintaining a healthy lifestyle including a well balanced diet and routine exercise. Counseled re: perimenopause vs menopause. Monitor periods, report any unscheduled bleeding, bleeding episodes less than 21 days apart or heavy prolonged menstrual bleeding. All of her questions and concerns were addressed to the best of my ability. RTO in one year for AG. Coding Level of Care Code Est Pt Prev Care 40-64y(81338) Diagnoses Encounter for well woman exam Z01.419
[2023-05-23 10:04] VITALS: BP 120/82; BMI 24.0
== END 2023-05-23 10:39 | disposition home or self-care (01) ==
LOC: HO.HWS 09:56
PROVIDERS: PCP Family Medicine; Visit Provider Advanced Practice Midwife
DX: Z01.419 Encounter for gynecological examination (general) (routine) without abnormal findings (principal)
CPT/HCPCS: 99396

== ENCOUNTER 2024-04-12 13:36 | Outpatient (REF) | payer OTHER, SELFPAY ==
--- NOTE | ~2024-04-12 | XR_ITS ---
EXAMINATION: XR HIP, RIGHT CLINICAL INFORMATION: Hip pain. Order states osteoarthritis of right hip, 53- year-old with history of right hip osteoarthritis, worsening symptoms, last x-ray 2 years ago, repeating today to determine if it has progressed in severity. COMPARISON: Right hip 08/18/2020. TECHNIQUE: Two views of the right hip. FINDINGS: Compared with the 08/18/2020 study, there has been marked progression of degenerative changes in the right hip with near obliteration of the joint space with sclerosis and subchondral cyst formation. Femoral head osteophytes are seen. No fractures or bony destructive lesions. XR/XR hip RT min 2V IMPRESSION: Marked progression of degenerative changes in the right hip.
== END 2024-04-12 13:37 | disposition home or self-care (01) ==
LOC: HO.HHCX 13:36
PROVIDERS: Visit Provider Registered Nurse
DX: M16.11 Unilateral primary osteoarthritis, right hip (principal)
CPT/HCPCS: 73502

== ENCOUNTER 2024-12-15 13:15 | Emergency (ER) | payer OTHER, SELFPAY ==
--- NOTE | 2024-12-15 | ECG_ITS ---
Test Reason : CHEST PAIN Blood Pressure : */* mmHG Vent. Rate : 109 BPM Atrial Rate : 109 BPM P-R Int : 124 ms QRS Dur : 88 ms QT Int : 368 ms P-R-T Axes : 44 2 18 degrees QTcB Int : 495 ms Sinus tachycardia Cannot rule out Anterior infarct , age undetermined Abnormal ECG No previous ECGs available Referred By: Generic ED Physician Electronically Signed By: BENSON JONES MD
--- NOTE | ~2024-12-15 | XR_ITS ---
EXAMINATION: XR CHEST CLINICAL INFORMATION: cp COMPARISON: None available. TECHNIQUE: 2 views of the chest were obtained. FINDINGS: No consolidation, pleural effusion or pneumothorax. Cardiomediastinal silhouette size is normal. No hyperinflation. S-shaped curvature of the thoracic spine. XR/XR chest 2V IMPRESSION: No acute airspace disease. Mild scoliosis, thoracic spine. Electronically signed by: Sonido Coyle MD 12/15/2024 02:48 PM [facility]
[2024-12-15 13:25] VITALS: BP 158/95; PULSE 110; RESP 18; TEMP 36.8; O2SAT 98; BMI 25.0
--- NOTE | 2024-12-15 13:25 | ED_ITS ---
HPI - Chest Pain General Chief Complaint: Chest Pain Stated Complaint: Chest Pain Time Seen by Provider: 12/15/24 18:20 Source: patient and family (Spouse) Mode of arrival: ambulatory Limitations: no limitations History of Present Illness ED Provider: DR. Hdez HPI narrative: 54-year-old female came in for evaluation chest pain that started since Friday 3 days ago to the mid chest and radiates to the left arm, patient also wake up in the morning with left hand numbness, pain has been constant since 3 days ago, worse with touching her chest wall no relieving factor, no recent travel, no recent prolonged immobilization, no lower extremity swelling or tenderness, no fever, no chills, no coughing, no chest injury or trauma. Related Data Home Medications ?Medication ?Instructions ?Recorded ?Confirmed cholecalciferol (vitamin D3) 25 25 mcg PO DAILY 03/25/22 mcg (1,000 unit) capsule (Vitamin D3) Allergies Allergy/AdvReac Type Severity Reaction Status Date / Time No Known Allergies Allergy Verified 12/15/24 13:26 Review of Systems 2 Review of Systems: All other systems are reviewed and are negative Constitutional: Reports as per HPI and Reports no additional constitutional complaints Eyes: Reports as per HPI and Reports no additional eye complaints Reports system reviewed and no additional complaints, except as documented Cardiovascular: Reports as per HPI and Reports no additional cardiovascular complaints Respiratory: Reports as per HPI and Reports no additional respiratory complaints Gastrointestinal: Reports as per HPI and Reports no additional gastrointestinal complaints Genitourinary: Reports no additional female genitourinary complaints Musculoskeletal: Reports no additional musculoskeletal complaints Skin/Breast: Reports system reviewed and no additional complaints, except as docu Psychiatric: Reports no additional psychiatric complaints Endocrine: Reports no additional endocrine complaints Hematologic/Lymphatic: Reports no additional hematologic/lymphatic complaints Allergic/Immunologic: Reports no additional allergic/immunologic complaints Reports system reviewed and no additional complaints, except as documented and Reports Abnormal speech present [facility] Past Medical History Medical History Arthritis Menometrorrhagia Back pain with right-sided sciatica Anxiety and depression Restless legs syndrome (RLS) Smoker Surgical History History of breast lump/mass excision H/O colonoscopy History of removal of ovarian cyst Family History Family History Brother Hx of cancer of lung Mother Cervical cancer Social History Social History Household Members: Significant Other Housing: House Alcohol intake: current Alcohol intake frequency: a few times a week Alcohol type: wine Patient Tobacco Use Status: Former Tobacco user Cigarettes Per Day: 6 Substance Use Type: Marijuana Do you have a plan to hurt others: No Plan Current occupational status: employed 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 Blood pressure elevated. Heart rate normal. Respiratory rate normal. Temperature normal. Oxygen saturation normal. Appearance: Alert. Oriented X3. No acute distress. Head: Normal external exam. Normocephalic. Atraumatic. No Andrews signs noted. No raccoon eyes noted Eyes: PERRLA. EOMI. Conjunctiva and sclera normal. Eyelids normal. ENT: TM's Normal. Pharynx normal. Uvula midline. Moist mucous membranes. No trismus noted. No drooling noted. No muffled voice noted. Neck: Normal inspection. Neck supple. FROM. No adenopathy. Thyroid Normal. No meningeal signs. No neck mass noted. CVS: Normal heart rate and rhythm. Heart sound normal. No murmurs noted. Pulses normal throughout. Respiratory: No respiratory distress. Painless inspiration. Breath sounds normal. No wheezes/rales/rhonchi noted. +reproducible tenderness on the left chest wall. No accessory muscle usage noted or decreased air movement noted. Abdomen: Soft and nontender. Bowel sounds normal in all 4 quadrants. No distention noted. No organomegaly noted. No visible injury noted. Back: No CVA tenderness. Full range of motion noted. Skin: Skin warm and dry. Normal skin color. Normal skin turgor. No rashes/lesions/lacerations noted. Extremities: No lower extremity edema. Extremities exhibit normal range of motion. Extremities nontender. Neuro: Oriented X 3. Cranial nerve exam: II-XII are grossly intact No motor deficit. No sensory deficit. Reflexes normal. Course Course Course Narrative: This is a Rapid Medical Exam performed in triage by Nenita Woodall PA-C. Full HPI, ROS and PE to be performed by primary ED provider. 54yo F presenting to the ED c/o chest pain radiating to LUE and back since Friday. Pains constant. denies SOB, N/V, weakness PE: talking in complete sentences, nontoxic, anxious Plan: EKG, labs, CXR, Viral testing Reevaluation(s) Reevaluation #1: Physical exam is consistent with reproducible tenderness on the left side of the sternum likely acute costochondritis, unremarkable cardiac enzymes x2, unremarkable EKG making ACS is unlikely, no risk for pulmonary embolism was negative D-dimer, physical exam is consistent with acute costochondritis. Time: 18:37 Medical Decision Making Differential Diagnosis Differential Diagnoses: The differential diagnosis associated with the presentation includes (ACS, pulmonary embolism, pneumonia, pneumothorax, pleural effusion, costochondritis, chest wall pain, rib fracture, electrolyte derangement, severe anemia.) Admission/Observation Consideration of admission/observation: Escalation of care including admission/observation considered Lab Data MDM Lab Attestation statement: I reviewed the patient's lab results. 12/15/24 14:57 12/15/24 14:57 Labs: Lab Results 12/15/24 12/15/24 Range/Units 14:57 17:51 WBC 7.5 (4.8-10.8) X10*3/uL RBC 4.97 (4.20-5.50) X10*6/uL Hgb 14.4 (12.0-16.0) g/dl Hct 42.8 (37.0-47.0) % MCV 86.1 (80.0-98.0) fL MCH 29.0 (27.0-33.0) pg MCHC 33.6 (31.0-35.0) g/dl RDW 13.5 (11.0-16.0) % Plt Count 254 (160-400) X10*3/uL MPV 10.1 (9.4-12.3) fL Immature Gran % (Auto) 0.3 (0.0-0.4) % Neut % (Auto) 63.1 (45-73) % Lymph % (Auto) 25.2 (20-40) % [place] % (Auto) 7.2 (2-11) % Eos % (Auto) 3.3 (0-4) % Baso % (Auto) 0.9 (0-2) % Lymph # (Auto) 1.9 (1.2-4.9) X10*3/uL [place] # (Auto) 0.5 (0.1-1.2) X10*3/uL Eos # (Auto) 0.3 (0.0-0.4) X10*3/uL Baso # (Auto) 0.1 (0.0-0.2) X10*3/uL Abs Immat Gran (auto) 0.02 (0.00-0.03) X10*3/uL Absolute Neuts (auto) 4.7 (2.0-8.3) x10*3/uL Absolute Nucleated RBC 0.000 (0.0-0.012) X10*3/uL Nucleated RBC % (auto) 0.0 (0.0-0.2) /100WBC PT 10.1 L (10.9-12.4) SEC INR 0.9 (0.9-1.1) Sodium 143 (135-145) mmol/L Potassium 3.9 (3.3-5.1) mmol/L Chloride 109 H (96-108) mmol/L Carbon Dioxide 26 (22-29) mmol/L Anion Gap 12 (12-20) BUN 17 H (9-16) mg/dL Creatinine 0.63 (0.5-1.4) mg/dL Estim Creat Clear Calc 94.4 Estimated GFR > 60 Random Glucose 103 (60-115) mg/dL Calcium 9.8 D (8.4-10.2) mg/dL Magnesium 2.0 (1.6-2.6) mg/dL Total Bilirubin 0.2 (0.0-1.0) mg/dL Direct Bilirubin < 0.2 (0.0-0.5) mg/dL AST 21 (5-31) U/L ALT 22 (0-31) U/L Alkaline Phosphatase 68 (39-117) U/L Troponin I High Sens < 2.7 < 2.7 (<3.5-17.0) ng/L Total Protein 7.4 (6.5-8.0) g/dL Albumin 4.3 (3.5-5.0) g/dL Influenza Type A (PCR) NEGATIVE (Negative) Influenza Type B (PCR) NEGATIVE (Negative) RSV RNA Qual (PCR) NEGATIVE (Negative) SARS-CoV-2 RNA (RT-PCR) NEGATIVE (Negative) Independent Interpretation I performed an independent interpretation of an: EKG (Sinus tachycardia at 01:09, normal intervals, left axis deviation, nonspecific ST-T changes, no old EKG to compare.) and Plain X-Ray (Chest: No acute intrathoracic pathology.) Radiology Impression Discussion of test interpretation with radiology: I have reviewed the radiologist's reading. Scores Heart Score History: -0- slightly suspicious ECG: -0- normal Age: -1- >45 - <65 Risk factory: -1- 1 or 2 risk factors Troponin: -0- < or = normal limit Score: 2 Risk: 1.7% Discharge Plan Discharge Clinical Impression: Acute costochondritis Patient Disposition: Home, Self-Care Instructions: Costochondritis (ED) Additional Instructions: Ibuprofen 200 mg ([id number]) every 6 hours if needed for pain. Prescriptions: No Action cholecalciferol (vitamin D3) [Vitamin D3] 25 mcg (1,000 unit) capsule 25 mcg PO DAILY Referrals: Evelyn Morales MD [Primary Care Provider] - Print Language: Romansh
[2024-12-15 15:03] LABS: MANUAL DIFF FLAG NO
[2024-12-15 15:04] LABS: Basophils Absolute Auto 0.1 X10*3/uL (0.0-0.2); Basophils Percent Auto 0.9 % (0-2); Eosinophils Absolute Auto 0.3 X10*3/uL (0.0-0.4); Eosinophils Percent Auto 3.3 % (0-4); Hematocrit 42.8 % (37.0-47.0); Hemoglobin 14.4 g/dl (12.0-16.0); Imm Gran Abs Auto 0.02 X10*3/uL (0.00-0.03); Imm Gran Pct Auto 0.3 % (0.0-0.4); Lymphocytes Absolute Auto 1.9 X10*3/uL (1.2-4.9); Lymphocytes Percent Auto 25.2 % (20-40); Mean Corpuscular HGB Conc 33.6 g/dl (31.0-35.0); Mean Corpuscular Volume 86.1 fL (80.0-98.0); Mean Platelet Volume 10.1 fL (9.4-12.3); Monocytes Absolute Auto 0.5 X10*3/uL (0.1-1.2); Monocytes Percent Auto 7.2 % (2-11); Neutrophils Absolute Auto 4.7 x10*3/uL (2.0-8.3); Neutrophils Percent Auto 63.1 % (45-73); Platelet Count 254 X10*3/uL (160-400); Red Blood Count 4.97 X10*6/uL (4.20-5.50); Red Cell Distribution Width 13.5 % (11.0-16.0); White Blood Count 7.5 X10*3/uL (4.8-10.8)
[2024-12-15 15:12] LABS: INTERNATIONAL NORM RATIO 0.9 (0.9-1.1); Prothrombin Time 10.1 SEC (10.9-12.4)
[2024-12-15 15:25] LABS: Alanine Aminotransferase 22 U/L (0-31); Albumin Level 4.3 g/dL (3.5-5.0); Anion Gap 12 (12-20); Aspartate Amino Transferase 21 U/L (5-31); Bilirubin Direct < 0.2 mg/dL (0.0-0.5); Bilirubin Total 0.2 mg/dL (0.0-1.0); Blood Urea Nitrogen 17 mg/dL (9-16); Calcium 9.8 mg/dL (8.4-10.2); Carbon Dioxide 26 mmol/L (22-29); Chloride 109 mmol/L (96-108); Creatinine Clr Calc Pharmacy 94.4; Estimated Glomerular Filt Rate > 60; Glucose Random 103 mg/dL (60-115); Potassium 3.9 mmol/L (3.3-5.1); Sodium 143 mmol/L (135-145); Total Protein 7.4 g/dL (6.5-8.0)
[2024-12-15 15:28] LABS: Troponin-I High Sensitivity < 2.7 ng/L (<3.5-17.0)
[2024-12-15 15:49] LABS: Influenza A PCR NEGATIVE (Negative); Influenza B PCR NEGATIVE (Negative); Resp Syncy Virus RNA Qual PCR NEGATIVE (Negative); SARS COV2 PCR INHOUSE NEGATIVE (Negative)
[2024-12-15 15:59] LABS: Alkaline Phosphatase 68 U/L (39-117)
[2024-12-15 18:18] LABS: Troponin-I High Sensitivity < 2.7 ng/L (<3.5-17.0)
[2024-12-15 18:42] LABS: D Dimer High Sensitivity < 150 NG/ML
[2024-12-15 18:51] VITALS: BP 141/65; PULSE 86; RESP 18; TEMP 36.8; O2SAT 98
[2024-12-15] MEDS: Ibuprofen 600 MG TABLET PO (19:01)
[2024-12-15 19:04] VITALS: BP 141/65; PULSE 86; RESP 18; TEMP 36.8; O2SAT 98
--- OUTSIDE RECORDS SUMMARY | 2024-12-15 19:40 | XMS_ITS | Encounter Summary ---
Author Organization [employer] Address [address] [place] [address] [address] [place] [address] Care Team Providers Care Perch Mender Name Role Phone Evelyn Morales MD Primary Care Provider [phone] Reason for Visit * Reason Onset Date Comments Appointment Request 11/19/2024 Encounter Details Date Type Department Care Team ([facility] st Contact Info) Description 11/19/2024 Telephone [facility] [address] [place] [address] Alea Leon MA Appointment Request Social History Tobacco Use Types Packs/Day Years Used Date Smoking Tobacco: Every Day Cigarettes Passive Smoke Exposure: Never Smokeless Tobacco: Never Alcohol Use Standard Drinks/Week Comments Never 0 (1 standard drink = 0.6 oz pur e alcohol) Depression Answer Date Recorded Patient Health Questionnaire-9 Score 23 07/01/2024 Patient Health Questionnaire-9 Score 23 07/01/2024 Last PHQ-9: Questionnaire Data Not on file 0 07/01/2024 Depression Answer Date Recorded Patient Health Questionnaire-2 Score 6 07/01/2024 Comments Unknown Sex and Gender Information Value Date Recorded Sex Assigned at Female 08/12/2022 10:37 AM EDT Legal Sex Female 10:37 AM EDT Gender Identity Female 08/12/2022 10:37 AM EDT Sexual Orientation Straight 08/12/2022 10 :37 AM EDT documented as of this encounter Miscellaneous Notes * Telephone Encounter - Alea Leon MA - 11/19/2024 3:11 PM EST Emma- paulino received a message that pt is requesting an appointment . Paulino called back to schedule documented in this encounter Plan of Treatment Not on file documented as of this encounter Visit Diagnoses Not on filedocumented in this encounter Additional Health Concerns Assessment Noted Time PHQ-9 Depression Total Score: 23 024 11:55 AM EDT documented as of this encounter Care Teams Perch Mender Relationship Specialty Start Date End Date Evelyn Morales MD [address] [facility] [place] [id number] PCP - General Family Medicine 07/13/20 documented as of this encounter
--- OUTSIDE RECORDS SUMMARY | 2024-12-15 19:40 | XMS_ITS | Clinical Summary ---
Author Organization [facility] Address [address] [place] [address] Care Team Providers Care Senior Property Accountant Name Role Phone Evelyn Morales MD Primary Care Provider [phone] Social History Tobacco Use Types Packs/Day Years Used Date Smoking Tobacco: Never Assessed Sex and Gender Information Value Date Recorded Sex Assigned at Not on file Gender Identity Not on file Sexual Orientation Not on file Plan of Treatment Health Maintenance Due Date Last Done Comments Hepatitis B Vaccines (1 of 3 - 3-dose series) 1969 Hepatitis C Screening 1969 COVID-19 Vaccine (#1) 1969 Depression Screening 1981 Preventative Health Evaluation 1987 DTap / Tdap / Td (1 - Tdap) 1988 Cervical Cancer Screening (P ap Smear) 1990 Colon Cancer Screening (Colonoscopy) 2014 Breast Cancer Screening (Mammogram) 2019 Shingrix-Zoster Vaccine (1 of 2) 2019 Influenza Vaccine (#1) 2024 Pneumococcal Vaccine Aged Out No long er eligible based on patient's age to complete this topic RSV Ped < 20 months Aged Out No longe r eligible based on patient's age to complete this topic Care Teams Senior Property Accountant Relationship Specialty Start Date End Date Evelyn Morales MD [address] [place] [address] PCP - General Family Medicine 12/05/20
--- OUTSIDE RECORDS SUMMARY | 2024-12-15 19:40 | XMS_ITS | Encounter Summary ---
Author Organization [email or web address] Address [address] [place] [address] [address] [place] [address] Care Team Providers Care Medical Engineer Name Role Phone Evelyn Morales MD Primary Care Provider [phone] Encounter Details Date Type Department Care Team (Late st Contact Info) Description 12/15/2024 Orders Only [facility] External Provider, [facility] Social History Tobacco Use Types Packs/Day Years [...] AM EDT documented as of this encounter Plan of Treatment Not on file documented as of this encounter Procedures Procedure Name Priority Date/Time Associated Diagnosis Comments HIGH SENSITIVITY TROPONIN I Routine 12/15/2024 5:51 PM EST D DIMER HIGH SENSITIVITY Routine 12/15/2024 2:57 PM EST HIGH SENSITIVITY TROPONIN I Routine 12/15/2024 2:57 PM EST SARS COV2/INFLUENZA A/B AND RSV RNA QL NAAT Routine 12/15/2024 2:57 PM EST CBC WITH AUTO DIFFERENTIAL Routine 12/15/2024 2:57 PM EST PROTHROMBIN TIME-INR Routine 12/15/2024 2:57 PM EST MAGNESIUM Routine 12/15/2024 2:57 PM EST HEPATIC FUNCTION PANEL Routine 12/15/2024 2:57 PM EST BASIC METABOLIC PANEL Routine 12/15/2024 2:57 PM EST XR CHEST 2 VIEWS Routine 12/15/2024 2:41 PM EST documented in this encounter Results * High Sensitivity Troponin I (12/15/2024 5:51 PM EST) [facility] TROPONIN I HIGH SENSITIVITY <2.7 <3.5 - 17.0 ng/L [facility] Comment:The Cervantes high sens itivity Troponin-I results should beused in conjunction with other diagnostic information suchas ECG, clinical observations and information, and patientsymptoms to aid in the diagnosis of MS. 12/15/2024 5:51 PM EST 12/15/2024 5:55 PM EST us Generic External Data Provider LAB BLOOD ORDERAB LES Final Result [facility] [address] [place] [phone] * D Dimer High Sensitivity (12/15/2024 2:57 PM EST) [facility] D Dimer High Sensitivity <150 NG/ML [facility] Comment:D-DIMER HS REFERENCE RANGENote: Our assay reports D-Dimer Units (D- DU).The cut-off value for venous thromboembolic (VTE) disease is230 ng/mL. This value has a very high negative predictivevalue when the patient has a low to moderate clinicalprobability of VTE.The upper limit of normal is 243 ng/mL. 12/15/2024 2:57 PM EST 12/15/2024 3:01 PM EST Generic External Data Provider LAB BLOOD ORDERAB LES Final Result Performing Organization Address [facility] Co de Phone Number [facility] [address] [place] [phone] * SARS-CoV-2 RNA, Influenza A/B, and RSV RNA, Ql NAAT (12/15/2024 2:57 PM EST) Influenza A PCR NEGATIVE Negative [facility] Influenza B PCR NEGATIVE Negative [facility] Resp Syncy Virus RNA Qual PCR NEGATIVE Negative [facility] SARS COV2 PCR NEGATIVE Negative [facility] Comment:All test results mus t be correlated with clinical findings.Negative results do not preclude SARS-CoV2, influenza Avirus, influenza B virus and/or RSV infectionand should not be used as the sole basis for treatment orother patient management decisions. Negative results must becombined with clinical observations, patient history, andepidemiological information.This test has not been evaluated for monitoring treatment ofinfection.This test has been authorized by the FDA under an EmergencyUse Authorization (EUA) for use by authorized laboratories.Testing performed on the [employer] GeneXpert utilizingreal-time RT-PCR.All SARS CoV2 and positive influenza A/B results arereported to [facility]. 12/15/2024 2:57 PM EST 12/15/2024 3:01 PM EST Generic External Data Provider LAB MICROBIOLOGY - GENERAL ORDERABLES Final Result Performing Organization Address [facility]/ZIP Co de Phone Number [facility] [address] [place] [phone] * High Sensitivity Troponin I (12/15/2024 2:57 PM EST) [facility] TROPONIN I HIGH SENSITIVITY <2.7 <3.5 - 17.0 ng/L [facility] Comment:The Cervantes high sens itivity Troponin-I results should beused in conjunction with other diagnostic information suchas ECG, clinical observations and information, and patientsymptoms to aid in the diagnosis of MS. 12/15/2024 2:57 PM EST 12/15/2024 3:01 PM EST Generic External Data Provider LAB BLOOD ORDERAB LES Final Result Performing Organization Address [facility]/ZIP Co de Phone Number [facility] [address] [place] [phone] * Magnesium (12/15/2024 2:57 PM EST) [facility] Magnesium 2.0 1.6 - 2.6 mg/dL [facility] 12/15/2024 2:57 PM EST 12/15/2024 3:01 PM EST [employer] External Data Provider LAB BLOOD ORDERAB LES Final Result Performing Organization Address [facility]/ZIP Co de Phone Number [facility] [address] [place] [phone] * (ABNORMAL) Basic Metabolic Panel (12/15/2024 2:57 PM EST) [facility] Sodium 143 135 - 145 mmol/L [facility] Potassium 3.9 3.3 - 5.1 mmol/L [facility] Chloride 109(H) 96 - 108 mmol/L [facility] Carbon Dioxide 26 22 - 29 mmol/L [facility] Anion Gap 12 12 - 20 [facility] Urea Nitrogen (BUN) 17(H) 9 - 16 mg/dL [facility] Creatinine, Serum 0.63 0.5 - 1.4 mg/dL [facility] Creatinine Clr Calc Pharmacy 94.4 [facility] Comment:Provided height and weight: 167.64 cm,70.3 kg.eGFR (calculated from the MDRD study equation) and eCrCl(calculated from the Cockcroft-Gault equation) are based ondifferent parameters and may not yield comparable results.If eCrCl result is absurd, please check patient'sheight/weight. Estimated Glomerular Filt Rate >60 [facility] Comment:Chronic Kidney Disea se: Estimated GFR < 60 mL/min/[id number] Kidney Disease: Estimated GFR < 15 mL/min/1.73m2 Glucose 103 60 - 115 mg/dL [facility] Calcium 9.8 8.4 - 10.2 mg/dL [facility] 12/15/2024 2:57 PM EST 12/15/2024 3:01 PM EST us Generic External Data Provider LAB BLOOD ORDERAB LES Final Result Performing Organization Address City/[facility]/ZIP Co de Phone Number [facility] [address] [place] [phone] * Hepatic Function Panel (12/15/2024 2:57 PM EST) Bilirubin, Total 0.2 0.0 - 1.0 mg/dL [facility] Bilirubin, Direct <0.2 0.0 - 0.5 mg/dL [facility] Aspartate Amino Transferase 21 5 - 31 U/L [facility] Alanine Aminotransferase 22 0 - 31 U/L [facility] Total Protein 7.4 6.5 - 8.0 g/dL [facility] Albumin Level 4.3 3.5 - 5.0 g/dL [facility] Alkaline Phosphatase 68 39 - 117 U/L [facility] 12/15/2024 2:57 PM EST 12/15/2024 3:01 PM EST us Generic External Data Provider LAB BLOOD ORDERAB LES Final Result Performing Organization Address City/[facility]/ZIP Co de Phone Number [facility] [address] [place] [phone] * (ABNORMAL) Prothrombin Time-INR (12/15/2024 2:57 PM EST) Pathologist [facility] Prothrombin Time 10.1(L) 10.9 - 12.4 SEC [facility] INTERNATIONAL NORM RATIO 0.9 0.9 - 1.1 [facility] Comment:INTERNATIONAL NORMAL IZED RATIO (INR) REFERENCE RANGES Reference RangeFor patients not on anticoagulant therapy: 0.9 - 1.1INR ranges for oral anticoagulanttherapy:For prevention and treatment of venous thrombosis and pulmonary embolism: 2.0 - 3.0For acute myocardial infarction with aspirin therapy: 2.0 - 3.0For acute myocardial infarction without aspirin therapy: 3.0 - 4.0For patients with mechanical prosthetic heart valves: 2.5 - 3.5 12/15/2024 2:57 PM EST 12/15/2024 3:01 PM EST us Generic External Data Provider LAB BLOOD ORDERAB LES Final Result Performing Organization Address City/State/[facility] Co de Phone Number [facility] [address] [place] [address] [phone] * CBC auto differential (12/15/2024 2:57 PM EST) [facility] White Blood Count 7.5 4.8 - 10.8 X10*3/uL [facility] Red Blood Count 4.97 4.20 - 5.50 X10*6/uL [facility] Hemoglobin 14.4 12.0 - 16.0 g/dl [facility] Hematocrit 42.8 37.0 - 47.0 % [facility] Mean Corpuscular Volume 86.1 80.0 - 98.0 fL [facility] Mean Corpuscular Hemoglobin 29.0 27.0 - 33.0 pg [facility] Mean Corpuscular HGB Conc 33.6 31.0 - 35.0 g/dl [facility] Red Cell Distribution Width 13.5 11.0 - 16.0 % [facility] Platelet Count 254 160 - 400 X10*3/uL [facility] Mean Platelet Volume 10.1 9.4 - 12.3 fL [facility] Neutrophils Percent Auto 63.1 45 - 73 % [facility] Imm Gran Pct Auto 0.3 0.0 - 0.4 % [facility] Lymphocytes Percent Auto 25.2 20 - 40 % [facility] Monocytes Percent Auto 7.2 2 - 11 % [facility] Eosinophils Percent Auto 3.3 0 - 4 % [facility] Basophils Percent Auto 0.9 0 - 2 % [facility] NRBC Pct Auto 0.0 0.0 - 0.2 /100WBC [facility] Neutrophils Absolute Auto 4.7 2.0 - 8.3 x10*3/uL [facility] Imm Gran Abs Auto 0.02 0.00 - 0.03 X10*3/uL [facility] Lymphocytes Absolute Auto 1.9 1.2 - 4.9 X10*3/uL [facility] Monocytes Absolute Auto 0.5 0.1 - 1.2 X10*3/uL [facility] Eosinophils Absolute Auto 0.3 0.0 - 0.4 X10*3/uL [facility] Basophils Absolute Auto 0.1 0.0 - 0.2 X10*3/uL [facility] NRBC Abs Auto 0.000 0.0 - 0.012 X10*3/uL [facility] 12/15/2024 2:57 PM EST 12/15/2024 3:01 PM EST us Generic External Data Provider LAB BLOOD ORDERAB LES Final Result [facility] [address] [place], [place] [phone] * XR Chest 2 Views (12/15/2024 2:41 PM EST) Anatomical Region Laterality Modality Chest Radiographic Leticia ging 12/15/2024 2:41 PM EST Narrative 12/15/2024 2:51 PM EST ? [facility] [facility] ?[address] ?[place] [address] ?XRay Report ? Signed ? Patient: Palmer,Gladis ?MR#: [id number] ?? [id number] ? : 1970 ?Acct:[id number] ? Age/Sex: 54 / F ?ADM Date: 12/15/24 ? Loc: HO.ED ? Attending Dr: ? Ordering Physician: Nenita Woodall ?? Date of Service: 12/15/24 ?? Procedure(s): XR chest 2V ?? Accession Number(s): [id number] ? cc: Nenita Woodall; Evelyn Morales MD ? EXAMINATION: ?? XR CHEST ? CLINICAL INFORMATION: ?? cp ? COMPARISON: ?? None available. ? TECHNIQUE: ?? 2 views of the chest were obtained. ? FINDINGS: ?? No consolidation, pleural effusion or pneumothorax. Cardiomediastinal ?? silhouette size is normal. ?? No hyperinflation. ?? S-shaped curvature of the thoracic spine. ? XR/XR chest 2V ?? IMPRESSION: ?? No acute airspace disease. ?? Mild scoliosis, thoracic spine. ? Electronically signed by: ??Sonido Coyle MD ??12/15/2024 02:48 PM ?? EST RP ? Dictated By: ?Sonido Mendez MD ? Signed By: ?<Electronically signed by Sonido Ulloa MD in OV> ? 12/15/24 1448 ? DD/ 1441 ? TD/TT: 12/15/24 1441 ? Telegraph Repeater Mechanic: ? Procedure Note Donald Saldana - 12/15/[address] [address] XRay Report Signed Patient: Gladis PalmerMR#: [id number] : 1970Acct:[id number] Age/Sex: 54 / FADM Date: 12/15/24 Loc: HO.ED Attending Dr: Ordering Physician: Nenita Woodall Date of Service: 12/15/24 Procedure(s): XR chest 2V Accession Number(s): [id number] cc: Nenita Woodall; Evelyn Morales MD EXAMINATION: XR CHEST CLINICAL INFORMATION: cp COMPARISON: None available. TECHNIQUE: 2 views of the chest were obtained. FINDINGS: No consolidation, pleural effusion or pneumothorax. Cardiomediastinal silhouette size is normal. No hyperinflation. S-shaped curvature of the thoracic spine. XR/XR chest 2V IMPRESSION: No acute airspace disease. Mild scoliosis, thoracic spine. Electronically signed by: Sonido Coyle MD 12/15/2024 02:48 PM EST Dictated By: Sonido Mendez MD Signed By: <Electronically signed by Sonido Ulloa MDin OV> 12/15/24 1448 DD/ 1441 TD/TT: 12/15/24 1441 Telegraph Repeater Mechanic: [facility] External Provider IMG XR PROCEDURES Edited Result - Final documented in this encounter Visit Diagnoses Not on filedocumented in this encounter Additional Health Concerns Assessment Noted Time PHQ-9 Depression Total Score: 23 024 11:55 AM EDT documented as of this encounter Care Teams Medical Engineer Relationship Specialty Start Date End Date Evelyn Morales MD [address] [place] [address] PCP - General Family Medicine 07/13/20 documented as of this encounter
--- OUTSIDE RECORDS SUMMARY | 2024-12-15 19:40 | XMS_ITS | Encounter Summary ---
Author Organization [employer] Address [address] [place] [address] [address] [place] [address] Care Team Providers Care Inspector Semiconductor Wafer Name Role Phone Evelyn Morales MD Primary Care Provider [phone] Encounter Details Date Type Department Care Team ([facility] st Contact Info) Description 04/14/2024 Orders Only [facility] [address] [place], [place] [phone] Afshan Cleveland, СЕРГЕЙ [address] [place] [address] Osteoarthritis of right hip, unspecified osteoarthritis type (Primary Dx) Social History Tobacco Use Types Packs/Day Years Used Date Smoking Tobacco: Never Passive Smoke Exposure: Never Smokeless Tobacco: Never Alcohol Use Standard Drinks/Week Comments Never 0 (1 standard drink = 0.6 oz pur e alcohol) Depression Answer Date Recorded Patient Health Questionnaire-2 Score 0 09/16/2022 Comments Unknown Sex and Gender Information Value Date Recorded Sex Assigned at Female 08/12/2022 10:37 AM EDT Legal Sex Female 10:37 AM EDT Gender Identity Female 08/12/2022 10:37 AM EDT Sexual Orientation Straight 08/12/2022 10 :37 AM EDT documented as of this encounter Plan of Treatment Not on file documented as of this encounter Visit Diagnoses Diagnosis Osteoarthritis of right hip, unspecified osteoarthritis type- Primary documented in this encounter Care Teams Inspector Semiconductor Wafer Relationship Specialty Start Date End Date Evelyn Morales MD [address] [place], [place] [phone] PCP - General Family Medicine 07/13/20 documented as of this encounter
--- OUTSIDE RECORDS SUMMARY | 2024-12-15 19:40 | XMS_ITS | Clinical Summary ---
Author Organization [facility] [[email or web address]] Address [address] [place] [address] Care Team Providers Care Index Clerk Name Role Phone Evelyn Morales MD Primary Care Provider [phone] Surgical History Surgery Date Site/Laterality Comments OTHER SURGICAL HISTORY PROCEDURE: AR ARTHRODESIS POSTERIOR INTERBODY 1 NTRSPC LUMBAR; COMMENT: L4-5 decompression PLIF 01/16/21 Medical History Medical History Date Comments Anxiety state DX:Anxiety state Depressive disorder DX:Depressiv e disorder Social History Tobacco Use Types Packs/Day Years Used Date Smoking Tobacco: Former Cigarettes Q uit: 12/11/2020 Smokeless Tobacco: Never Comments Unknown Sex and Gender Information Value Date Recorded Sex Assigned at Not on file Legal Sex Female 2:03 AM EST Gender Identity Not on file Sexual Orientation Not on file Obstetrics History Plan of Treatment Health Maintenance Due Date Last Done Comments Breast Cancer Screening 1970 DTaP,Tdap,and Td Vaccines (1 - Tdap) 1988 Hepatitis B Vaccines (1 of 3 - 19+ 3-dose series) 1988 Cervical Cancer Screening: P ap Smear 1990 Pneumococcal Vaccine: 50+ Ye ars (1 of 1 - PCV) 2019 Zoster Vaccines (1 of 2) 2019 Colorectal Cancer Screening: Colonoscopy 09/15/2022 Depression Screening 09/15/2022 HIV Screening 09/15/2022 Hepatitis C Screening 09/15/2022 Social Influencers of Health Screening 09/15/2022 COVID-19 Vaccine ( - 2023-2 5 season) 2024 Influenza Vaccine (#1) 2024 HIB Vaccines Aged Out No longer eligi ble based on patient's age to complete this topic HPV Vaccines Aged Out No longer eligi ble based on patient's age to complete this topic Hepatitis A Vaccines Aged Out No long er eligible based on patient's age to complete this topic IPV Vaccines Aged Out No longer eligi ble based on patient's age to complete this topic MMR Vaccines Aged Out No longer eligi ble based on patient's age to complete this topic Meningococcal ACWY Vaccine Aged Out N o longer eligible based on patient's age to complete this topic Meningococcal B Vacine Aged Out No lo nger eligible based on patient's age to complete this topic Pneumococcal Vaccine: Pediat rics (0 to 5 Years) and At-Risk Patients (6 to 64 Years) Aged Out No longer eligible b ased on patient's age to complete this topic RSV Immunization Patients Un ari 20 months Aged Out No longer eligible b ased on patient's age to complete this topic Varicella Vaccines Aged Out No longer eligible based on patient's age to complete this topic Care Teams Index Clerk Relationship Specialty Start Date End Date Evelyn Morales MD [address] [place] [phone] PCP - General Family Medicine 12/05/20
--- OUTSIDE RECORDS SUMMARY | 2024-12-15 19:40 | XMS_ITS | Clinical Summary ---
Author Organization [employer] Address [address] [place] [address] 7[address] [place] [address] Care Team Providers Care Top Waddy Name Role Phone Evelyn Morales MD Primary Care Provider [phone] Allergies No known active allergies Medications cyclobenzaprine (Flexeril) 5 MG tablet take 1 or 2 tablets by mouth at bedtime. May take 1 additional dose. Please do not drive or operate machine after taking this medication 11/26/19 22 Active D3-1000 25 MCG (1000 UT) capsuleIndication s:Vitamin D deficiency TAKE 1 CAPSULE BY MOUTH EVERY DAY 90 capsule 3 12/03/19 23 Active acetaminophen (Tylenol Extra Strength) 500 MG tabletIndications :Osteoarthritis of right hip, unspecified osteoarthritis type Take 1-2 tablets (500-1,000 mg) by mouth every 8 (eight) hours if needed (pain and fever). 100 tablet 2 04/12/20 24 2024 Active celecoxib (CeleBREX) 200 MG capsuleIndication s:Osteoarthritis of right hip, unspecified osteoarthritis type TAKE 1 CAPSULE BY MOUTH EVERY DAY IF NEEDED FOR HIP PAIN 30 capsule 11/22/19 25 Active celecoxib (CeleBREX) 200 MG capsuleIndication s:Osteoarthritis of right hip, unspecified osteoarthritis type TAKE 1 CAPSULE BY MOUTH EVERY DAY IF NEEDED FOR HIP PAIN 30 capsule 10/14/19 25 2024 Discontinued Active Problems Problem Noted Date Diagnosed Date Mood disorder 07/02/2024 Assessment & Plan (07/02/2024 12:02 PM EDT): - previously Dx adjustment disorder - PHQ9 score 23 and GAD7 score 17 on 07/01/24 - patient declines behavioral health service or pharmacological treatment - patient perceives that she will feel better once she starts her new job - will follow up in 1 mo History of smoking 07/02/2024 Assessment & Plan (07/02/2024 12:03 PM EDT): - she stopped smoking with varenicline for 3 years - recently started again Right hip pain 07/02/2024 Assessment & Plan (07/02/2024 12:20 PM EDT): - osteoarthritis of right hip - s/p JEANNETTE on 05/14/24 by [facility] provider Osteoarthritis of right hip 07/02/2024 Assessment & Plan (07/02/2024 12:21 PM EDT): - s/p right total hip arthroplasty on 05/14/24 - continue judicious use of celecoxib Elevated blood pressure read ing without diagnosis of hypertension 07/01/2024 Assessment & Plan (07/01/2024 12:46 PM EDT): -Goal BP < 140/90 per JNC-8 and < 130/80 per ACC/AHA guideline (Treatment threshold >=140/90) -BP is elevated today -Continue working on lifestyle modifications -Recommended self-monitoring BP. -EKG was normal today -Follow up in 6 -12 mo, sooner if any problem arises History of total hip arthroplasty, right 024 Assessment & Plan (07/01/2024 12:47 PM EDT): - 05/14/[address] Yi - Recovered well Status post lumbar spine alvino neville for decompression of spinal cord 09/18/2022 Assessment & Plan (07/01/2024 11:54 AM EDT): January 2021 L4-5 laminectomy, mesial facetectomy, interbody fusion, and nonsegmental screw fixation by Dr. Calix Currently following with [facility] provider and is receiving steroid injection Continue current treatment plan per her specialists Tried gabapentin and cyclobenzaprine which was ineffective Discontinue celecoxib MRI on 12/13/21 Lumbar spine MRI: /p lumbar fusion with hardware at L4-L5, improvement in disc space, decompressive laminectomy, moderate right foraminal narrowing, mild central canal stenosis, mild disc bulge with facet arthropathy at L3-L4 Assessment & Plan (09/18/2022 5:07 AM EST): ?? January 2021 L4-5 laminectomy, mesial facetectomy, interbody fusion, and nonsegmental screw fixation by Dr. Calix ?? Currently following with [facility] provider and is receiving steroid injection ?? Continue current treatment plan per her specialists ?? Tried gabapentin and cyclobenzaprine which was ineffective ?? Discontinue celecoxib ?? MRI on 12/13/21 Lumbar spine MRI: /p lumbar fusion with hardware at L4-L5, improvement in disc space, decompressive laminectomy, moderate right foraminal narrowing, mild central canal stenosis, mild disc bulge with facet arthropathy at L3-L4 Lumbar degenerative disc disease 09/18/2022 Assessment & Plan (07/01/2024 11:54 AM EDT): January 2021 L4-5 laminectomy, mesial facetectomy, interbody fusion, and nonsegmental screw fixation by Dr. Calix Currently following with [facility] provider and is receiving steroid injection Continue current treatment plan per her specialists Tried gabapentin and cyclobenzaprine which was ineffective Discontinue celecoxib MRI on 12/13/21 Lumbar spine MRI: /p lumbar fusion with hardware at L4-L5, improvement in disc space, decompressive laminectomy, moderate right foraminal narrowing, mild central canal stenosis, mild disc bulge with facet arthropathy at L3-L4 Assessment & Plan (09/18/2022 5:21 AM EST): ?? January 2021 L4-5 laminectomy, mesial facetectomy, interbody fusion, and nonsegmental screw fixation by Dr. Calix ?? Currently following with [facility] provider and is receiving steroid injection ?? Continue current treatment plan per her specialists ?? Tried gabapentin and cyclobenzaprine which was ineffective ?? Discontinue celecoxib ?? MRI on 12/13/21 Lumbar spine MRI: /p lumbar fusion with hardware at L4-L5, improvement in disc space, decompressive laminectomy, moderate right foraminal narrowing, mild central canal stenosis, mild disc bulge with facet arthropathy at L3-L4 Hypertriglyceridemia 09/18/2022 Assessment & Plan (07/01/2024 11:55 AM EDT): 11/26/21 TC 274; TG 514; HDL 51; LDL was unable to be calculated due to highTG Continue working on lifestyle modifications, including reducing alcohol intake and high fructose corn syrun (she drinks Gatorade) Repeat lipid profile in Nov 2022 Assessment & Plan (09/18/2022 5:11 AM EST): ?? 11/26/21 TC 274; TG 514; HDL 51; LDL was unable to be calculated due to highTG ?? Continue working on lifestyle modifications, including reducing alcohol intake and high fructose corn syrun (she drinks Gatorade) ?? Repeat lipid profile in Nov 2022 Alcohol intake above recommended sensible limits 09/18/2022 Adjustment disorder with mixed anxiety and depre ssed mood 09/09/2022 Assessment & Plan (07/01/2024 12:49 PM EDT): - High PHQ9 and GAD7 scores today - Patient declines evaluation by integrated behavioral health service or outpatient counseling referral - Patient attributes it to getting a new job - Reassess in 2-3 mo if patient needs further evaluation and treatment Mixed hyperlipidemia 09/09/2022 Tubular adenoma of colon 09/09/2022 Encounters Date Type Department Care Team Description 12/15/2024 Orders Only [facility] External Provider, [facility] 12/15/2024 Telephone [facility] [address] [place] [phone] Evelyn Morales MD Nurse Triage 11/20/2024 Refill [facility] [address] [place] [address] [phone] Evelyn Morales MD Osteoarthritis of right hip, unspecified osteoarthritis type 11/19/2024 Telephone [facility] [address] [place] [address] [phone] Alea Leon MA Appointment Request 10/13/2024 Refill [facility] [address] [place] [address] Jonathon Oliveira MD Osteoarthritis of right hip, unspecified osteoarthritis type 09/23/2024 Telephone [facility] [address] [place] [address] Alea Leon MA october recall from Last 3 Months Immunizations Name Administration Dates Next Due Hep B, adult 01/12/2021,11/17/2020,07/13/2020 Influenza injectable quadriv alent preservative free 07/13/2020 Influenza, seasonal, injecta ble, preservative free 09/16/2022 Pneumococcal Polysaccharide PPSV23 07/13/2020 Tdap 07/13/2020 Zoster, Recombinant 11/10/2020,07/13/2020 Social History Tobacco Use Types Packs/Day Years Used Date Smoking Tobacco: Every Day Cigarettes Passive Smoke Exposure: Never Smokeless Tobacco: Never Tobacco Cessation:Ready to Q uit: Not Asked; Counseling Given: Not Answered Alcohol Use Standard Drinks/Week Comments Never 0 [...] Orientation Straight 08/12/2022 10 :37 AM EDT Last Filed Vital Signs Vital Sign Reading Time Taken Comments Blood Pressure 142/92 07/01/2024 12:20 PM EDT Pulse 98 07/01/2024 11:47 AM EDT Temperature 36.4 ??C (97.5 ??F) 07/01/2024 1 1:47 AM EDT Respiratory Rate 07/01/2024 11:4 7 AM EDT Oxygen Saturation 98% 04/12/2024 1:01 PM EDT Inhaled Oxygen Concentration - - Weight 70.2 kg (154 lb 12.8 oz) 024 11:47 AM EDT Height 169.9 cm (5' 6.88 ) 09/16/2022 1:30 PM ES T Body Mass Index 24.33 09/16/2022 1:30 PM EST Plan of Treatment Health Maintenance Due Date Last Done Comments CT Colonography 1969 FIT DNA/Cologuard 1969 FIT 1969 FOBT 1969 SDOH Screening 1970 Sigmoidoscopy 1969 Alcohol/Substance Use Screening 1981 Pap Smear 1990 Cervical Cancer Screening 1999 HPV/Cotest 1999 Pneumococcal Vaccine: 50+ Years (2 of 2 - PCV) 07/13/2021 07/13/2020 COVID-19 Vaccine ( - 2023-2 5 season) 2024 Influenza Vaccine (#1) 2024 , 07/13/2020 Depression Monitoring (PHQ-9) 12/29/2024, 07/01/2024 Mammogram 03/14/2025 03/14/2023, 02/25/2022, 05/24/2020 Colonoscopy 06/29/2025 06/29/2020 Colorectal Cancer Screening 06/29/2025 Depression Screening 07/01/2025 07/01/2024, 07/01/2024 Tobacco Screening 07/01/2025 07/01/2024 Lipid Panel 11/26/2026 11/26/2021, 05/11/2020 DTaP/Tdap/Td Vaccines (2 - T d or Tdap) 07/13/2030 07/13/2020 RSV Patients and Patients Aged 60 years or older (1 - 1-dose 75+ series) 2044 HIV Screening Completed 05/11/2020 Hepatitis C Screening Completed 05/11/2020 Zoster Vaccines Completed 11/10/2020, 07/13/2020 Hepatitis B Vaccines Completed 01/12/2021, 11/17/2020, 07/13/2020 HIB Vaccines Aged Out No longer eligi [...] patient's age to complete this topic Meningococcal Vaccine Aged Out No annette arlette eligible based on patient's age to complete this topic RSV under 20 months Aged Out No longe r eligible based on patient's age to complete this topic Rotavirus Vaccines Aged Out No longer eligible based on patient's age to complete this topic Procedures Procedure Name Priority Date/Time Associated Diagnosis Comments HIGH SENSITIVITY TROPONIN I Routine 12/15/2024 5:51 PM EST D DIMER HIGH SENSITIVITY Routine 12/15/2024 2:57 PM EST HIGH SENSITIVITY TROPONIN I Routine 12/15/2024 2:57 PM EST MAGNESIUM Routine 12/15/2024 2:57 PM EST BASIC METABOLIC PANEL Routine 12/15/2024 2:57 PM EST HEPATIC FUNCTION PANEL Routine 2:57 PM EST PROTHROMBIN TIME-INR Routine 12/15/2024 2:57 PM EST CBC WITH AUTO DIFFERENTIAL Routine 12/15/2024 2:57 PM EST SARS COV2/INFLUENZA A/B AND RSV RNA QL NAAT Routine 12/15/2024 2:57 PM EST XR CHEST 2 VIEWS Routine 12/15/2024 2:41 PM EST BI MAMMOGRAM SCREENING TOMOSYNTHESIS BILATERAL Routine 03/14/2023 9:38 AM EDT LIPID PANEL, STANDARD Routine 11/26/2021 3:04 PM EST HM COLONOSCOPY Routine 06/29/2020 ZZZ HISTORICAL HEPATITIS C AB W/REFL TO HCV RNA, QN, PCR Routine 05/11/2020 10:53 AM EDT HIV 1/2 ANTIGEN/ANTIBODY, FOURTH GENERATION W/RFL Routine 05/11/2020 10:53 AM EDT from Last 3 Months or Most Recently Relevant to Health Maintenance Results * High Sensitivity Troponin I (12/15/2024 5:51 PM EST) Only the most recent of2 resultswithin the time period is included. TROPONIN I HIGH SENSITIVITY <2.7 <3.5 - 17.0 ng/L [facility] Comment:The Cervantes high sens itivity Troponin-I results should beused in conjunction with other diagnostic information suchas ECG, clinical observations and information, and patientsymptoms to aid in the diagnosis of [place]. 12/15/2024 5:51 PM EST 12/15/2024 5:55 PM EST Generic External Data Provider LAB BLOOD ORDERAB LES Final Result Performing Organization Address [facility] de Phone Number [facility] [address] [place] [phone] * D Dimer High Sensitivity (12/15/2024 2:57 PM EST) Pathologist [facility] D Dimer High Sensitivity <150 NG/ML [facility] Comment:D-DIMER HS REFERENCE RANGENote: Our [...] ORDERAB LES Final Result Performing Organization Address [facility] Co de Phone Number [facility] [address] [place] [phone] * SARS-CoV-2 RNA, Influenza A/B, and RSV RNA, Ql NAAT (12/15/2024 2:57 PM EST) Influenza A PCR NEGATIVE Negative [facility] Influenza B PCR NEGATIVE Negative [facility] Resp Syncy Virus RNA Qual PCR NEGATIVE Negative [facility] SARS COV2 PCR NEGATIVE Negative [facility] Comment:All test results mus t be [...] use by authorized laboratories.Testing performed on the [employer] GeneXpert utilizingreal-time RT-PCR.All SARS CoV2 and positive influenza A/B results arereported to [facility]. 12/15/2024 2:57 PM EST 12/15/2024 3:01 PM EST us Generic External Data Provider LAB MICROBIOLOGY - GENERAL ORDERABLES Final Result [facility] [address] [place] [phone] * CBC auto differential (12/15/2024 2:57 PM EST) White Blood Count 7.5 4.8 - 10.8 X10*3/uL [facility] Red Blood Count 4.97 4.20 - 5.50 X10*6/uL [facility] Hemoglobin 14.4 12.0 - 16.0 g/dl [facility] Hematocrit 42.8 37.0 - 47.0 % [facility] Mean Corpuscular Volume 86.1 80.0 - 98.0 fL [facility] Mean Corpuscular Hemoglobin 29.0 27.0 - 33.0 pg [facility] Mean Corpuscular HGB Conc 33.6 31.0 - 35.0 g/dl [facility] Red Cell Distribution Width 13.5 11.0 - 16.0 % [facility] Platelet Count 254 160 - 400 X10*3/uL [facility] Mean Platelet Volume 10.1 9.4 - 12.3 fL [facility] Neutrophils Percent Auto 63.1 45 - 73 % [facility] Imm Gran Pct Auto 0.3 0.0 - 0.4 % [facility] Lymphocytes Percent Auto 25.2 20 - 40 % [facility] Monocytes Percent Auto 7.2 2 - 11 % [facility] Eosinophils Percent Auto 3.3 0 - 4 % [facility] Basophils Percent Auto 0.9 0 - 2 % [facility] NRBC Pct Auto 0.0 0.0 - 0.2 /100WBC [facility] Neutrophils Absolute Auto 4.7 2.0 - 8.3 x10*3/uL [facility] Imm Gran Abs Auto 0.02 0.00 - 0.03 X10*3/uL [facility] Lymphocytes Absolute Auto 1.9 1.2 - 4.9 X10*3/uL [facility] Monocytes Absolute Auto 0.5 0.1 - 1.2 X10*3/uL [facility] Eosinophils Absolute Auto 0.3 0.0 - 0.4 X10*3/uL [facility] Basophils Absolute Auto 0.1 0.0 - 0.2 X10*3/uL [facility] NRBC Abs Auto 0.000 0.0 - 0.012 X10*3/uL [facility] 12/15/2024 2:57 PM EST 12/15/2024 3:01 PM EST us Generic External Data Provider LAB BLOOD ORDERAB LES Final Result [facility] [address] [place] [phone] * (ABNORMAL) Prothrombin Time-INR (12/15/2024 2:57 PM EST) Prothrombin Time 10.1(L) 10.9 - 12.4 SEC [facility] INTERNATIONAL NORM RATIO 0.9 0.9 - 1.1 [facility] Comment:INTERNATIONAL NORMAL IZED RATIO (INR) [...] ORDERAB LES Final Result Performing Organization Address [facility] Co de Phone Number [facility] [address] [place] [address] [phone] * Magnesium (12/15/2024 2:57 PM EST) [facility] Magnesium 2.0 1.6 - 2.6 mg/dL [facility] 12/15/2024 2:57 PM EST 12/15/2024 3:01 PM EST [employer] External Data Provider LAB BLOOD ORDERAB LES Final Result Performing Organization Address [facility] de Phone Number [facility] [address] [place] [phone] * Hepatic Function Panel (12/15/2024 2:57 PM EST) [facility] Bilirubin, Total 0.2 0.0 - 1.0 mg/dL [facility] Bilirubin, Direct <0.2 0.0 - 0.5 mg/dL [facility] Aspartate Amino Transferase 21 5 - 31 U/L [facility] Alanine Aminotransferase 22 0 - 31 U/L [facility] Total Protein 7.4 6.5 - 8.0 g/dL [facility] Albumin Level 4.3 3.5 - 5.0 g/dL [facility] Alkaline Phosphatase 68 39 - 117 U/L [facility] 12/15/2024 2:57 PM EST 12/15/2024 3:01 PM EST us Generic External Data Provider LAB BLOOD ORDERAB LES Final Result [facility] [address] [place] [address] [phone] * (ABNORMAL) Basic Metabolic Panel (12/15/2024 2:57 PM EST) Sodium 143 135 - 145 mmol/L [facility] Potassium 3.9 3.3 - 5.1 mmol/L [facility] Chloride 109(H) 96 - 108 mmol/L [facility] Carbon Dioxide 26 22 - 29 mmol/L [facility] Anion Gap 12 12 - 20 [facility] Urea Nitrogen (BUN) 17(H) 9 - 16 mg/dL [facility] Creatinine, Serum 0.63 0.5 - 1.4 mg/dL [facility] Creatinine Clr Calc Pharmacy 94.4 [facility] Comment:Provided height and weight: 167.64 cm,70.3 kg.eGFR (calculated from the MDRD study equation) and eCrCl(calculated from the Cockcroft-Gault equation) are based ondifferent parameters and may not yield comparable results.If eCrCl result is absurd, please check patient'sheight/weight. Estimated Glomerular Filt Rate >60 [facility] Comment:Chronic Kidney Disea se: Estimated GFR < 60 mL/min/[id number] Kidney Disease: Estimated GFR < 15 mL/min/1.73m2 Glucose 103 60 - 115 mg/dL [facility] Calcium 9.8 8.4 - 10.2 mg/dL [facility] 12/15/2024 2:57 PM EST 12/15/2024 3:01 PM EST us Generic External Data Provider LAB BLOOD ORDERAB LES Final Result [facility] [address] [place] [phone] * XR Chest 2 Views (12/15/2024 2:41 PM EST) Anatomical Region Laterality Modality Chest Radiographic Leticia ging 12/15/2024 2:41 PM EST Narrative 12/15/2024 2:51 PM EST ? [facility] ?[address] ?[place] [address] ?XRay Report ? Signed ? Patient: Estela,Gladis ?MR#: [id number] ?? 281 ? : 1970 ?Acct:[id number] ? Age/Sex: 54 / F ?ADM Date: 12/15/24 ? Loc: HO.ED ? Attending Dr: ? Ordering Physician: Nenita Woodall ?? Date of Service: 12/15/24 ?? Procedure(s): XR chest 2V ?? Accession Number(s): [id number] ? cc: Nenita Woodall; Evelyn Morales MD [...] DD/ 1441 ? TD/TT: 12/15/24 1441 ? Fax Machine Repairer: ? Procedure Note Les, Donald - 12/15/[address] [address] XRay Report Signed Patient: Gladis PalmerMR#: [id number] 281 : 1970Acct:[id number] Age/Sex: 54 / FADM Date: 12/15/24 Loc: HO.ED Attending Dr: Ordering Physician: Nenita Woodall Date of Service: 12/15/24 Procedure(s): XR chest 2V Accession Number(s): [id number] cc: Nenita Woodall; Evelyn Morales MD EXAMINATION: [...] by: Sonido Coyle MD 12/15/2024 02:48 PM [facility] Dictated By: Sonido Mendez MD Signed By: <Electronically signed by Sonido Ulloa MDin OV> 12/15/24 1448 DD/ 1441 TD/TT: 12/15/24 1441 Fax Machine Repairer: [facility] External Provider IMG XR PROCEDURES Edited Result - Final * BI Mammogram Screening Tomosynthesis Bilateral (03/14/2023 9:38 AM EDT) Anatomical Region Laterality Modality Breast Bilateral Mammography 03/14/2023 9:38 AM EDT Narrative 03/15/2023 2:09 PM EDT ? [facility] ? [address] ?[place] [address] ? Mammography Report ? Signed ? Patient: Palmer,Gladis ?MR#: [id number] ?? 281 ? : 1970 ?Acct:[id number] ? Age/Sex: 52 / F ?ADM Date: 03/14/ ? Loc: HO.MAMMO ? Attending Dr: Evelyn Morales MD ? Ordering Physician: Evelyn Morales MD ?Results: 1Negative ? Date of Service: 03/14/23 ?Follow Up: 1 Year From Orig ?? inal Mammogram ? Procedure(s): MM tomosynthesis screening BI ?? Accession Number(s): [id number] ? cc: Evelyn Morales MD ? EXAMINATION: ?? MM SCREENING DIGITAL BREAST TOMOSYNTHESIS, BILATERAL ? CLINICAL INFORMATION: ? Screening. Asymptomatic. ? The lifetime risk of breast cancer based on the Tyrer-Cuzick Model is ?? 7%. ? COMPARISON: ?? Mammography: 02/25/2022, 05/24/2020, left breast ultrasound 05/24/2020. ? TECHNIQUE: ?? Digital breast tomosynthesis is performed in both the craniocaudal and ?? mediolateral oblique views along with computer-aided detection (CAD). ?? Synthesized 2D images are generated from the tomosynthesis. ? FINDINGS: ?? There are scattered areas of fibroglandular density (ACR BI-RADS breast ?? composition Category b). ? Parenchymal pattern is similar to prior exam and there is no developing ?? density or interval architectural abnormality or abnormal ?? calcifications. The axilla are unremarkable. The intradermal lesion ?? posterior medial left breast is no longer clearly demonstrated. ? MM/MM tomosynthesis screening BI ?? IMPRESSION: ?? No mammographic evidence of malignancy. ? ASSESSMENT: ? BI-RADS 1: Negative ? RECOMMENDATION: ?? Routine annual mammography screening. ? This patient's information was entered into a reminder system with a ?? target due date for their next mammogram. ? Dictated By: ?Myles Hong MD ? Signed By: ?<Electronically signed by Myles Hong MD in OV> ?03/15/23 1406 ? DD/ 0938 ? TD/TT: ? Fax Machine Repairer: OCASIO ? Procedure Note Donotsamuelinterpreter, Image - 04/10/2023 [facility] [address] [place] [address] Mammography Report Signed Patient: Gladis PalmerMR#: [id number] 281 : 1970Acct:[id number] Age/Sex: 52 / FADM Date: 03/14/23 Loc: HO.MAMMO Attending Dr: Evelyn Morales MD Ordering Physician: Evelyn Morales MDResults: 1Negative Date of Service: 03/14/23Follow Up: 1 Year From Orig inal Mammogram Procedure(s): MM tomosynthesis screening BI Accession Number(s): [id number] cc: Evelyn Morales MD EXAMINATION: MM SCREENING DIGITAL BREAST TOMOSYNTHESIS, BILATERAL CLINICAL INFORMATION: Screening. Asymptomatic. The lifetime risk of breast cancer based on the Tyrer-Cuzick Model is 7%. COMPARISON: Mammography: 02/25/2022, 05/24/2020, left breast ultrasound 05/24/2020. TECHNIQUE: Digital breast tomosynthesis is performed in both the craniocaudal and mediolateral oblique views along with computer-aided detection (CAD). Synthesized 2D images are generated from the tomosynthesis. FINDINGS: There are scattered areas of fibroglandular density (ACR BI-RADS breast composition Category b). Parenchymal pattern is similar to prior exam and there is no developing density or interval architectural abnormality or abnormal calcifications. The axilla are unremarkable. The intradermal lesion posterior medial left breast is no longer clearly demonstrated. MM/MM tomosynthesis screening BI IMPRESSION: No mammographic evidence of malignancy. ASSESSMENT: BI-RADS 1: Negative RECOMMENDATION: Routine annual mammography screening. This patient's information was entered into a reminder system with a target due date for their next mammogram. Dictated By: Myles Hong MD Signed By: <Electronically signed by Myles Hong MD in OV> 03/15/23 1406 DD/ 0938 TD/TT: Fax Machine Repairer: AMARJIT [facility] External Provider IMG BI PROCEDURES Edited Result - Final * (ABNORMAL) LIPID PANEL, STANDARD (11/26/2021 3:04 PM EST) Chol/HDLC Ratio 5.4(H) <5.0 (calc) [facility] Cholesterol, Total 273(H) <200 mg/dL [facility] HDL Cholesterol 51 > OR = 50 mg/dL [facility] LDL Cholesterol SEE COMMENT mg/dL (calc) [facility] Comment: ?? LDL cholesterol not calculated. Triglyceride levels greater than 400 mg/dL invalidate calculated LDL results. ?? Reference range: <100 ?? Desirable range <100 mg/dL for primary prevention; ?? <70 mg/dL for patients with CHD or diabetic patients ?? with > or = 2 CHD risk factors. ?? LDL-C is now calculated using the Tereso ?? calculation, which is a validated novel method providing ?? better accuracy than the Friedewald equation in the ?? estimation of LDL-C. ?? Arthur HERRING et al. GEOVANI. 2013;310(19): 6410-9258 ?? (http://education.Lysanda.[employer]/faq/VJP309) Non-HDL Cholesterol 222(H) <130 mg/dL (calc) [facility] Comment: Non-HDL level > or = 220 is very high and may indicate ?? genetic familial hypercholesterolemia (FH). Clinical ?? assessment and measurement of blood lipid levels ?? should be considered for all first-degree relatives ?? of patients with an FH diagnosis. ?? For patients with diabetes plus 1 major ASCVD risk ?? factor, treating to a non-HDL-C goal of <100 mg/dL ?? (LDL-C of <70 mg/dL) is considered a therapeutic ?? option. Triglycerides 514(H) <150 mg/dL [facility] Comment: ?? If a non-fasting specimen was collected, consider repeat triglyceride testing on a fasting specimen if clinically indicated. ?? Andie delacruz al. J. of Clin. Lipidol. 2015;9:129-169. ? There is increased risk of pancreatitis when the ?? triglyceride concentration is very high ?? (> or = 500 mg/dL, especially if > or = 1000 mg/dL). ?? Andie et al. J. of Clin. Lipidol. 2015;9:129-169. ?? 11/26/2021 3:04 PM EST Evelyn Morales MD LAB BLOOD ORDERABLES Final Resul t [facility] [address] * Colonoscopy (06/29/2020) Colonoscopy Normal Normal Historical Provider HEALTH MAINTENANCE Final Result * HEPATITIS C AB W/REFL TO HCV RNA, QN, PCR (05/11/2020 10:53 AM EDT) HEPATITIS C ANTIBODY NON-REACT JESSENIA NON-REACT JESSENIA [facility] INDEX 0.00 <1.00 [facility] Comment: ?? HCV antibody was non-reactive. There is no laboratory ?? evidence of HCV infection. ?? In most cases, no further action is required. However, if recent HCV exposure is suspected, a test for HCV RNA (test code 01031) is suggested. ?? For additional information please refer to http://education.Ginx/faq/YNI47w7 (This link is being provided for informational/ educational purposes only.) ?? HEPATITIS C ANTIBODY NON-REACT JESSENIA NON-REACT JESSENIA [facility] INDEX 0.00 <1.00 [facility] Comment: ?? HCV antibody was non-reactive. There is no laboratory ?? evidence of HCV infection. ?? In most cases, no further action is required. However, if recent HCV exposure is suspected, a test for HCV RNA (test code 10279) is suggested. ?? For additional information please refer to http://[facility] [place].[employer]/faq/JEM16i1 (This link is being provided for informational/ educational purposes only.) ?? 05/11/2020 10:5 3 AM EDT us Evelyn Morales MD HISTORICAL/NON ORDERABLE LABS Fi nal Result [facility] [address] [place] [address], * HIV 1/2 ANTIGEN/ANTIBODY,FOURTH GENERATION W/RFL (05/11/2020 10:53 AM EDT) HIV-1/2 ANTIGEN AND ANTIBODIES, 4TH GENERATION W/ REFLEX NON-REACT JESSENIA NON-REACT JESSENIA [facility] Comment: HIV-1 antigen and HIV-1/HIV-2 antibodies were not detected. There is no laboratory evidence of HIV infection. ?? PLEASE NOTE: This information has been disclosed to you from records whose confidentiality may be protected by state law. ??If your state requires such protection, then the state law prohibits you from making any further disclosure of the information without the specific written consent of the person to whom it pertains, or as otherwise permitted by law. A general authorization for the release of medical or other information is NOT sufficient for this purpose. ? For additional information please refer to http://[facility] [place]/faq/FXO745 (This link is being provided for informational/ educational purposes only.) ? The performance of this assay has not been clinically validated in patients less than 2 years old. ?? HIV-1/2 ANTIGEN AND ANTIBODIES, 4TH GENERATION W/ REFLEX NON-REACT JESSENIA NON-REACT JESSENIA [facility] Comment: HIV-1 antigen and HIV-1/HIV-2 antibodies were not detected. There is no laboratory evidence of HIV infection. ?? PLEASE NOTE: This information has been disclosed to you from records whose confidentiality may be protected by state law. ??If your state requires such protection, then the state law prohibits you from making any further disclosure of the information without the specific written consent of the person to whom it pertains, or as otherwise permitted by law. A general authorization for the release of medical or other information is NOT sufficient for this purpose. ? For additional information please refer to http://The [employer]/faq/SNC367 (This link is being provided for informational/ educational purposes only.) ? The performance of this assay has not been clinically validated in patients less than 2 years old. ?? HIV-1/2 ANTIGEN AND ANTIBODIES, 4TH GENERATION W/ REFLEX NON-REACT JESSENIA NON-REACT JESSENIA [facility] Comment: HIV-1 antigen and HIV-1/HIV-2 antibodies were not detected. There is no laboratory evidence of HIV infection. ?? PLEASE NOTE: This information has been disclosed to you from records whose confidentiality may be protected by state law. ??If your state requires such protection, then the state law prohibits you from making any further disclosure of the information without the specific written consent of the person to whom it pertains, or as otherwise permitted by law. A general authorization for the release of medical or other information is NOT sufficient for this purpose. ? For additional information please refer to http://[facility] [place].Ginx/faq/GND385 (This link is being provided for informational/ educational purposes only.) ? The performance of this assay has not been clinically validated in patients less than 2 years old. ?? 05/11/2020 10:5 3 AM EDT us Evelyn Morales MD LAB BLOOD ORDERABLES Final Resul t [facility] [address] from Last 3 Months or Most Recently Relevant to Health Maintenance Insurance [facility] Care Teams Top Waddy Relationship Specialty Start Date End Date Evelyn Morales MD [address] [place] [id number] PCP - General Family Medicine 07/13/20
--- OUTSIDE RECORDS SUMMARY | 2024-12-15 19:40 | XMS_ITS | Encounter Summary ---
Author Organization [employer] Address [address] [place] [address] [address] [place] [address] Care Team Providers Care Drainage Inspector Name Role Phone Evelyn Morales MD Primary Care Provider [phone] Reason for Visit * Reason Comments Med Refill Encounter Details Date Type Department Care Team (Late st Contact Info) Description 11/20/2024 Refill [facility] [address] [place] [id number] Evelyn Morales MD [address] [place], [place] [phone] Osteoarthritis of right hip, unspecified osteoarthritis type Social History Tobacco Use Types Packs/Day Years [...] Diagnosis Osteoarthritis of right hip, unspecified osteoarthritis type documented in this encounter Additional Health Concerns Assessment Noted Time PHQ-9 Depression Total Score: 23 024 11:55 AM EDT documented as of this encounter Care Teams Drainage Inspector Relationship Specialty Start Date End Date Evelyn Morales MD [address] [place] [address] PCP - General Family Medicine 07/13/20 documented as of this encounter
--- OUTSIDE RECORDS SUMMARY | 2024-12-15 19:40 | XMS_ITS | Encounter Summary ---
Author Organization [employer] Address [address] [place] [address] [address] [address] Care Team Providers Care Multimedia Artist Name Role Phone Evelyn Morales MD Primary Care Provider [phone] Reason for Visit * Reason Onset Date Comments Nurse Triage 12/15/2024 Encounter Details Date Type Department Care Team ([facility] st Contact Info) Description 12/15/2024 Telephone [facility] MEDICINE [address] [place] [address] Evelyn Morales MD [address] [place] [address] Nurse Triage Social History Tobacco Use Types Packs/Day Years [...] encounter Miscellaneous Notes * Telephone Encounter - Ana Gaspar LPN - 12/15/2024 12:48 PM EST Triage call returned to patient who reports onset of sternal pain that goes to left breast and around to left shoulder and into her left back. Patient describing at discomfort Patient had called toreport elevated BP of 158/114. Patient stated she doesn't feel like its a heart attack cause it hasbeen since Friday. Patient confirms discomfort has been constant no relief from OTC analgesic. Patient advised to seek ED Now per protocol. Patient began to cry. Patient reassured and advised of need for ED care. Declines 911 but will have transport her to [facility] ED now. Reviewed with pt to contact PCP office after ER evaluation for follow up appt. Pt verbalized understanding and agrees. Forwarded to PCP and team as FYI to follow up PRN Protocol Used: Chest Pain (Adult) Protocol-Based Disposition: Call EMS 911 Now Positive Triage Question: * Chest pain lasting longer than 5 minutes, over 30 years old, and at least one cardiac risk factor(e.g., diabetes mellitus, high blood pressure, high cholesterol, obesity with BMI 30 or higher, smoker, or strong family history of heart disease) * All higher-acuity triage questions were negative * Telephone Encounter - Alonzo Spencer - 12/15/2024 12:17 PM EST Symptom: High Blood Pressure - Caller Reports Outcome: Talk to a nurse or provider within 15 minutes Reason: Sudden increase within the past 24 hours The caller accepted this outcome. documented in this encounter Plan of Treatment Not on file documented as of this encounter Visit Diagnoses Not on filedocumented in this encounter Additional Health Concerns Assessment Noted Time PHQ-9 Depression Total Score: 23 024 11:55 AM EDT documented as of this encounter Care Teams Multimedia Artist Relationship Specialty Start Date End Date Evelyn Morales MD [address] [place] [phone] PCP - General Family Medicine 07/13/20 documented as of this encounter
== END 2024-12-15 19:05 | disposition home or self-care (01) ==
PROVIDERS: Physician Assistant; Emergency Provider Emergency Medicine; PCP Family Medicine
DX: M94.0 Chondrocostal junction syndrome [Tietze] (principal)
CPT/HCPCS: 0241U; 36415; 71046; 80048; 80076; 83735; 84484; 85025; 85379; 85610; 93005; 99283; 99284

== ENCOUNTER → 2024-12-15 13:20 | Outpatient (BNV) | payer OTHER, SELFPAY | PROVIDERS: PCP Family Medicine; Visit Provider Internal Medicine Cardiovascular Disease | DX: R00.0 Tachycardia, unspecified (principal) | CPT/HCPCS: 93010 ==

== ENCOUNTER → 2024-12-15 13:26 | Outpatient (BNV) | payer OTHER, SELFPAY | PROVIDERS: PCP Family Medicine; Visit Provider Radiology Diagnostic Radiology | DX: R07.9 Chest pain, unspecified (principal) | CPT/HCPCS: 71046 ==

== ENCOUNTER 2025-04-07 08:07 | Outpatient (AMB) | payer OTHER, SELFPAY ==
--- NOTE | 2025-04-07 08:10 | A.OFFVIS_ITS ---
Vital Signs 04/07/25 08:11 Height 5 ft 6 in Weight 163 lb BMI 26.3 BP 142/102 H Intake Visit Reasons: Fibroids Intake Note: Last US 01/21/22 MRI 01/04/22 pt concerned Fibroids have grown Welfare Eligibility Interviewer: Welfare Eligibility Interviewer Present (Kylie) Allergies No Known Allergies Allergy (Verified 04/07/25 08:11) Is last menstrual period known: Yes Last menstrual period: 12/11/24 HPI Comments Details: Patient is a postmenopausal woman presenting for her annual wedding designer examination. Admits to feeling very anxious about her symptoms and has concerns for her health. She is doing well with wedding designer concerns: Pelvic pressure and bloating, took probiotics for about a month and felt they helped with her symptoms. Has had bleeding episode every 4-5 months this year. Currently sexually active. Denies any vaginal dryness or irritation. Attempting to eat a healthy diet with calcium, history of constipation. Stays active with exercise when able to get to the gym. Had total hip replacement last year. Last pap smear; 3-4 years ago no hard copy on hand, prior negative. Last mammogram; 2022. Everyday smoker, is interested in quitting. Colonoscopy is due, history of colon polyps. Denies any family history of breast, ovarian or colon cancer. PFSH Medical History Irregular bleeding Fibroid Arthritis Menometrorrhagia Back pain with right-sided sciatica Anxiety and depression Restless legs syndrome (RLS) Smoker Surgical History History of total right hip replacement History of breast lump/mass excision H/O colonoscopy History of removal of ovarian cyst Family History Brother Hx of cancer of lung Mother Cervical cancer Social History Household Members: Significant Other Housing: House Alcohol intake: current Alcohol intake frequency: a few times a week Alcohol type: wine Patient Tobacco Use Status: Current everyday Tobacco user Cigarettes Per Day: 10 Substance Use Type: Marijuana Current occupational status: employed 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 [employer] Sexual orientation: Straight/Heterosexual Gender identity: Female Female Reproductive History Menstrual Date of last menstrual period: 12/11/24 Review of Systems Const All systems reviewed & are unremarkable except as noted in HPI and below Reports as per HPI Eyes Reports no additional complaints ENT Reports no additional complaints Card Reports no additional complaints Resp Reports no additional complaints GI Reports as per HPI and Reports no additional complaints Reports as per HPI Musc Reports no additional complaints Skin/Breast Reports as per HPI Neuro Reports no additional complaints Psych Reports no additional complaints Endo Reports no additional complaints Danny/Lymph Reports no additional complaints Aller/Immun Reports no additional complaints Physical Exam Vital Signs: Last Vital Signs BP 142/102 H 04/07/25 08:11 BMI result Body Mass Index 26.3 Const General: cooperative, healthy appearing, no acute distress, well developed and alert Orientation/consciousness: patient oriented x3 HEENT Head: Yes normal to inspection Eyes General: appearance normal, both eyes and all related structures Neck Neck: Yes normal visual inspection Thyroid: Thyroid normal Chest Other: Left breast scar Chest palpation & inspection: normal inspection of the chest and other (no puckering, dimpling, peau de orange, retraction, discharge, masses) Breast/axilla inspection: normal inspection of the breasts Breast/axilla palpation: normal palpation of the breasts Resp Effort & Inspection: normal respiratory effort GI Inspection: Yes normal to inspection Palpation (GI): Soft to palpation Rectal Exam - Female: deferred General: Yes bladder normal to palpation External Female Exam: normal external appearance and normal appearance of the urethra Speculum Exam - Vagina: normal appearance of the vagina, normal palpation, normal vaginal discharge and vaginal bleeding (Small amount dark brown) Speculum Exam - Cervix: normal appearance of the cervix and normal palpation Bimanual exam- vagina & uterus: normal bimanual exam, normal palpation, uterine size normal, bladder normal to palpation, normal palpation and non-tender Bimanual Exam- Adnexa, other: no masses OB/external & speculum: vaginal bleeding (Small amount dark brown) Skin General skin exam: no rashes or lesions noted Rashes: no rashes Neuro General: patient oriented x3 Cognition (Neuro): normal cognition Extrem General: Yes normal to inspection Psych Attitude: cooperative Thought process: Normal thought process present Assessment & Plan Assessment & Plan (1) Fibroid: Code(s): D21.9 - Benign neoplasm of connective and other soft tissue, unspecified Category: Medical Plan: History of fibroids, last scan several years ago. Plan ultrasound and follow up to discuss results. The patient expressed understanding and agreement with the plan of care. All of her questions and concerns were addressed to the best of my ability. (2) Irregular bleeding: Code(s): N92.6 - Irregular menstruation, unspecified Category: Medical Plan: Plan workup to include pelvic ultrasound, GC chlamydia, BV panel. Menopause verses perimenopause. Menopause is definitive of 1 year of no menses or 12 months in succession. Report any abnormal uterine bleeding in example prolonged episodes, or short intervals less than 24 days. FSH and LH order. Discussed- purpose of endometrial biopsy to rule out any abnormal uterine cells including atypia, precancer and cancer. Preprocedure anticipatory guidance reviewed, advised to take 3 Advil with food and fluids 1 hour before her appointment. Ultrasound follow up in [facility] combined if indicated. The patient expressed understanding and agreement with the plan of care. All of her questions and concerns were addressed to the best of my ability. Total time I personally spent on visit and management today: ?20 minutes. Time spent included review of pertinent office notes in the electronic health record; review of laboratory and imaging results; review of personal family medical history; performing physical exam; discussing diagnosis and plan of care with the patient; documenting the encounter in the EMR. (3) Encounter for well woman exam with routine gynecological exam: Code(s): Z01.419 - Encounter for gynecological examination (general) (routine) without abnormal findings Category: Medical Plan Discussed: Current recommendations for pap smears per ASCCP guidelines. Pap obtained. Breast awareness, periodic self breast exams and yearly mammogram. Mammogram ordered. Advised to speak with her PCP to obtain referral to GI for her colonoscopy follow up. Encouraged tobacco sensation, self care, and stress reduction techniques. Maintain a healthy lifestyle, well balanced diet including Calcium 1,200 mg and Vitamin D 600 IU daily, and routine exercise. Patient verbalizes understanding and agrees to the plan of care. She was given opportunity to ask questions and all questions were answered to the best of my ability. RTO in 1 year for annual wedding designer exam. This note is constructed using voice recognition software. While every effort has been made to ensure accuracy, ornamental iron worker apprentice errors may have been included. Orders: Orders CT NG by PCR Vag/Cerv Today N93.9 - Abnormal uterine and vaginal bleeding, unspecified Pap Smear Today N93.9 - Abnormal uterine and vaginal bleeding, unspecified, Z01.419 - Encounter for gynecological examination (general) (routine) without abnormal findings US pelvic and transvaginal Today N92.6 - Irregular menstruation, unspecified Bacterial Vaginosis Panel Today N93.9 - Abnormal uterine and vaginal bleeding, unspecified HPV High risk Today N93.9 - Abnormal uterine and vaginal bleeding, unspecified, Z01.419 - Encounter for gynecological examination (general) (routine) without abnormal findings Follicle Stimulating Hormone Today R23.2 - Flushing Lutenizing Hormone Today N92.6 - Irregular menstruation, unspecified Coding Level of Care Code Est Pt Level 2 (61215) Est Pt Prev Care 40-64y(74028) Diagnoses Fibroid D21.9 Irregular bleeding N92.6 Encounter for well woman exam with routine gynecological exam Z01.419
[2025-04-07 08:11] VITALS: BP 142/102; BMI 26.3
--- OUTSIDE RECORDS SUMMARY | 2025-04-07 08:15 | XMS_ITS | Encounter Summary ---
Author Organization [employer] Address [address] [place] [address] [place] [address] Care Team Providers Care Wrapper Stemmer Operator Name Role Phone Evelyn Morales MD Primary Care Provider [phone] Encounter Details Date Type Department Care Team ([facility] st Contact Info) Description 04/14/2024 Orders Only [facility]S [address] [place], [place] [phone] Afshan Cleveland, СЕРГЕЙ [address] [place] [address] Osteoarthritis of right hip, unspecified osteoarthritis type [...] Primary documented in this encounter Care Teams Wrapper Stemmer Operator Relationship Specialty Start Date End Date Evelyn Morales MD [address] [place] [address] PCP - General Family Medicine 07/13/20 documented as of this encounter
== END 2025-04-07 09:07 | disposition home or self-care (01) ==
LOC: HO.HWS 08:07
PROVIDERS: PCP Family Medicine; Visit Provider Advanced Practice Midwife
DX: D21.9 Benign neoplasm of connective and other soft tissue, unspecified (principal); N92.6 Irregular menstruation, unspecified; Z01.419 Encounter for gynecological examination (general) (routine) without abnormal findings
CPT/HCPCS: 99212; 99396; 99459

== ENCOUNTER 2025-04-07 08:07 | Outpatient (REF) | payer OTHER, SELFPAY ==
[2025-04-07 13:08] LABS: Bacterial Vaginosis PCR NEGATIVE (Negative); Candida Group PCR NOT DETECTED (Not Detect); Candida glab krusei PCR NOT DETECTED (Not Detect); Trichomonas vaginalis PCR NOT DETECTED (Not Detect)
[2025-04-07 13:39] LABS: CT PCR NOT DETECTED (Not Detect.); NG PCR NOT DETECTED (Not Detect.)
[2025-04-12 08:18] LABS: HPV Genotype 16 Negative (Negative); HPV Genotype 18 Negative (Negative); HPV High Risk Negative (Negative)
== END 2025-04-07 08:08 | disposition home or self-care (01) ==
LOC: HO.LNP 08:07
PROVIDERS: PCP Family Medicine; Visit Provider Advanced Practice Midwife
DX: Z01.419 Encounter for gynecological examination (general) (routine) without abnormal findings (principal); Z11.51 Encounter for screening for human papillomavirus (HPV); N93.9 Abnormal uterine and vaginal bleeding, unspecified
CPT/HCPCS: 81515; 87491; 87591; 87626; 88175; 99212; 99396

== ENCOUNTER 2025-04-07 08:54 | Outpatient (REF) | payer OTHER, SELFPAY | END 2025-04-07 08:55 | disposition home or self-care (01) | LOC: HO.LAB 08:54 | PROVIDERS: Visit Provider Advanced Practice Midwife | DX: Z13.89 Encounter for screening for other disorder (principal) ==

== ENCOUNTER 2025-05-12 13:50 | Outpatient (REF) | payer OTHER, SELFPAY ==
--- NOTE | ~2025-05-12 | US_ITS ---
CLINICAL HISTORY: N92.6 - Irregular menstruation, unspecified --- Additional Notes or Special Instructions: pelvic bloating and pressure US pelvis transabdominal and transvaginal with color Doppler Comparison: None Findings: Transabdominal scanning performed for overall anatomy. Transvaginal scanning performed for additional detail. LMP: 04/11/2025 Anteverted uterus, heterogeneous myometrium with arcuate uterus measuring 9.4 x 6 x 4 x 8.4 cm. Well defined endometrium, measuring 10 mm on the right and 11 mm in thickness on the left. The endometrium is slightly heterogeneous with minimal cystic changes possible hyperplasia can not exclude polyp or metaplasia/dysplasia. Follow-up ultrasound during the proliferative phase of the menstrual cycle is recommended. Incidental nabothian cysts. Uterine fibroids: Fundal 1.9 x 1.7 x 1.4 cm previously measuring 2.0 x 1.8 x 1.5 cm The right ovary measures, 2.8 x 1.0 x 1.8 cm. Normal sonographic appearance right ovary. Normal color Doppler with normal ovarian arterial and venous spectral tracing, Left ovary not identified No adnexal masses or fluid collections. No free fluid Impression: 1. 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 Uterine fibroid. 2. There is heterogeneity of the endometrium with minimal cystic changes follow-up pelvic ultrasound during the proliferative phase of the menstrual cycle. 3. Normal sonographic appearance right ovary. Left ovary not identified. No adnexal masses or fluid collections. This document has been electronically signed by: Yoan Kelsey MD on 05/13/2025 09:53:14
--- OUTSIDE RECORDS SUMMARY | 2025-05-12 14:02 | XMS_ITS | Encounter Summary ---
Author Organization [employer] Address [address] [place] [address] [place] [address] Care Team Providers Care Supervisor Mold Cleaning And Storage Name Role Phone Evelyn Morales MD Primary Care Provider [phone] Encounter Details Date Type Department Care Team ([facility] st Contact Info) Description 04/14/2024 Orders Only [facility] [address] [place], [place] [phone] Afshan Cleveland, СЕРГЕЙ [address] [place] [address] Osteoarthritis of right hip, unspecified osteoarthritis type [...] Primary documented in this encounter Care Teams Supervisor [employer] Cleaning [employer] Storage Relationship Specialty Start Date End Date Evelyn Morales MD [address] [place] [address] PCP - General Family Medicine 07/13/20 documented as of this encounter
--- OUTSIDE RECORDS SUMMARY | 2025-05-12 14:02 | XMS_ITS | Clinical Summary ---
Author Organization [facility] Address [address] [place] [address] Care Team Providers Care Enrollment Management Director Name Role Phone Evelyn Morales MD Primary Care Provider [phone] Surgical History Surgery Date Site/Laterality Comments OTHER SURGICAL HISTORY PROCEDURE: [facility] ARTHRODESIS POSTERIOR INTERBODY 1 NTRSPC LUMBAR; COMMENT: [...] 2019 Zoster Vaccines (1 of 2) 2019 COVID-19 Vaccine ( - 2023-2 5 season) 2024 Depression Screening 10/13/2024 Influenza Vaccine (#1) 2025 HIB Vaccines Aged Out No longer eligi [...] age to complete this topic Meningococcal B Vaccine Aged Out No l onger eligible based on patient's age to complete this topic RSV Immunization Patients Un ari 20 months Aged Out No longer eligible b ased on patient's age to complete this topic Varicella Vaccines Aged Out No longer eligible based on patient's age to complete this topic Care Teams Enrollment Management Director Relationship Specialty Start Date End Date Evelyn Morales MD [address] [place] [phone] PCP - General Family Medicine 12/05/20
--- OUTSIDE RECORDS SUMMARY | 2025-05-12 14:02 | XMS_ITS | Clinical Summary ---
Author Organization [facility] Address [address] [place] [address] Care Team Providers Care Tick Inspector Name Role Phone Evelyn Morales MD Primary Care Provider [phone] Social History Tobacco Use Types Packs/Day Years [...] (1 of 2) 2019 Influenza Vaccine (#1) 2025 Pneumococcal Vaccine Aged Out No long er eligible based on patient's age to complete this topic RSV Ped < 20 months Aged Out No longe r eligible based on patient's age to complete this topic Care Teams Tick Inspector Relationship Specialty Start Date End Date Evelyn Morales MD [address] [place] [phone] PCP - General Family Medicine 12/05/20
== END 2025-05-12 13:51 | disposition home or self-care (01) ==
LOC: HO.US 13:50
PROVIDERS: Visit Provider Advanced Practice Midwife
DX: N92.6 Irregular menstruation, unspecified (principal)
CPT/HCPCS: 76830; 76856

== ENCOUNTER → 2025-05-12 13:51 | Outpatient (BNV) | payer OTHER, SELFPAY | PROVIDERS: Visit Provider Radiology Diagnostic Radiology | DX: D25.9 Leiomyoma of uterus, unspecified (principal); Q51.810 Arcuate uterus | CPT/HCPCS: 76830; 76856 ==

== ENCOUNTER 2025-05-30 12:28 | Outpatient (REF) | payer OTHER, SELFPAY ==
--- OUTSIDE RECORDS SUMMARY | 2025-05-30 13:28 | XMS_ITS | Clinical Summary ---
Author Organization [facility] Address [address] [place] [address] Care Team Providers Care Manager International Name Role Phone Evelyn Morales MD Primary Care Provider [phone] Social History Tobacco Use Types Packs/Day Years [...] age to complete this topic Care Teams Manager International Relationship Specialty Start Date End Date Evelyn Morales MD [address] [place] [address] PCP - General Family Medicine 12/05/20
--- OUTSIDE RECORDS SUMMARY | 2025-05-30 13:28 | XMS_ITS | Clinical Summary ---
Author Organization [facility] Address [address] [place] [address] Care Team Providers Care Newspaper Writer Name Role Phone Evelyn Morales MD Primary Care Provider [phone] Surgical History Surgery Date Site/Laterality Comments OTHER SURGICAL HISTORY PROCEDURE: [place] ARTHRODESIS POSTERIOR INTERBODY 1 NTRSPC LUMBAR; COMMENT: [...] age to complete this topic Care Teams Newspaper Writer Relationship Specialty Start Date End Date Evelyn Morales MD [address] [place] [id number] PCP - General Family Medicine 12/05/20
[2025-05-30 13:39] LABS: Hemoglobin A1C 125.9669 umol/L; Total Hemoglobin (HGBA1C) 3718.4406 umol/L
[2025-05-30 13:59] LABS: Alanine Aminotransferase 27 U/L (0-31); Albumin Level 4.7 g/dL (3.5-5.0); Alkaline Phosphatase 72 U/L (39-117); Anion Gap 12 (12-20); Aspartate Amino Transferase 25 U/L (5-31); Blood Urea Nitrogen 15 mg/dL (9-16); Calcium 9.3 mg/dL (8.4-10.2); Carbon Dioxide 24 mmol/L (22-29); Chloride 108 mmol/L (96-108); Cholesterol 306 mg/dL (<200); Estimated Glomerular Filt Rate > 60; HDL Cholesterol 52 mg/dL (>40); Potassium 4.0 mmol/L (3.3-5.1); Sodium 140 mmol/L (135-145); Total Protein 7.1 g/dL (6.5-8.0); Triglycerides 315 mg/dL (<150)
[2025-05-30 14:26] LABS: Reflex LDLD? No
[2025-05-31 10:18] LABS: Follicle Stimulating Hormone 91.7 mIU/mL
== END 2025-05-30 12:29 | disposition home or self-care (01) ==
LOC: HO.LAB 12:28
PROVIDERS: PCP Family Medicine; Visit Provider Advanced Practice Midwife
DX: Z13.1 Encounter for screening for diabetes mellitus (principal); E78.2 Mixed hyperlipidemia; E78.1 Pure hyperglyceridemia; N92.6 Irregular menstruation, unspecified; R03.0 Elevated blood-pressure reading, without diagnosis of hypertension; R23.2 Flushing
CPT/HCPCS: 36415; 80053; 80061; 83001; 83002; 83036; 84443

== ENCOUNTER 2025-06-23 13:26 | Outpatient (AMB) | payer OTHER, SELFPAY ==
--- NOTE | 2025-06-23 13:29 | A.OFFVIS_ITS ---
Vital Signs 06/23/25 13:33 Height 5 ft 6 in Weight 162 lb BMI 26.1 BP 126/80 Blood Pressure Location Rt brachial Position Sitting Intake Visit Reasons: US follow up/EMB Intake Note: Here to review u/s results Information Interpreted: non-clinical & clinical Hose Wrapper: Hose Wrapper Present (Claudia) Accompanied by: Self / Same As Patient Allergies No Known Allergies Allergy (Verified 06/23/25 13:36) Is last menstrual period known: Yes Last menstrual period: 03/23/25 Do you need a note to return to daycare/school/sports/work: No HPI Comments Details: Patient is here today for a follow up pelvic ultrasound results and EMB procedure. History of postmenopausal bleeding. PFSH Medical History Fibroid Arthritis Back pain with right-sided sciatica Anxiety and depression Restless legs syndrome (RLS) Smoker Surgical History History of total right hip replacement History of breast lump/mass excision H/O colonoscopy History of removal of ovarian cyst Family History Brother Hx of cancer of lung Mother Cervical cancer Social History Household Members: Significant Other Housing: House Alcohol intake: current Alcohol intake frequency: a few times a week Alcohol ty pe: wine Patient Tobacco Use Status: Current everyday Tobacco user Cigarettes Per Day: 10 Substance Use Type: Marijuana Current occupational status: employed 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 [employer] Sexual orientation: Straight/Heterosexual Gender identity: Female Female Reproductive History Menstrual Age of Menarche: 14 Date of last menstrual period: 03/23/25 Total pregnancies: 1 Number of Living Children: 1 Review of Systems Const All systems reviewed & are unremarkable except as noted in HPI and below Endo Reports no additional complaints Physical Exam Vital Signs: Last Vital Signs BP 126/80 06/23/25 13:33 BMI result Body Mass Index 26.1 Const General: cooperative, healthy appearing and no acute distress Psych Appearance: well kempt Attitude: cooperative Thought process: Normal thought process present Results Reviewed Results Reviewed: [address] [address] Ultrasound Report Signed Patient: Gladis Palmer MR#: [id number] : 1970 Acct:[id number] Age/Sex: 54 / F ADM Date: 05/12/25 Loc: HO.US Attending Dr: Emelyn Cline CNM Ordering Physician: Emelyn Cline CNM Date of Service: 05/12/25 Procedure(s): US pelvic and transvaginal Accession Number(s): [id number] cc: Emelyn Cline CNM~ CLINICAL HISTORY: N92.6 - Irregular menstruation, unspecified --- Additional Notes or Special Instructions: pelvic bloating and pressure US pelvis transabdominal and transvaginal with color Doppler Comparison: None Findings: Transabdominal scanning performed for overall anatomy. Transvaginal scanning performed for additional detail. LMP: 04/11/2025 Anteverted uterus, heterogeneous myometrium with arcuate uterus measuring 9.4 x 6 x 4 x 8.4 cm. Well defined endometrium, measuring 10 mm on the right and 11 mm in thickness on the left. The endometrium is slightly heterogeneous with minimal cystic changes possible hyperplasia can not exclude polyp or metaplasia/dysplasia. Follow-up ultrasound during the proliferative phase of the menstrual cycle is recommended. Incidental nabothian cysts. Uterine fibroids: Fundal 1.9 x 1.7 x 1.4 cm previously measuring 2.0 x 1.8 x 1.5 cm The right ovary measures, 2.8 x 1.0 x 1.8 cm. Normal sonographic appearance right ovary. Normal color Doppler with normal ovarian arterial and venous spectral tracing, Left ovary not identified No adnexal masses or fluid collections. No free fluid Impression: 1. 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 Uterine fibroid. 2. There is heterogeneity of the endometrium with minimal cystic changes follow-up pelvic ultrasound during the proliferative phase of the menstrual cycle. 3. Normal sonographic appearance right ovary. Left ovary not identified. No adnexal masses or fluid collections. This document has been electronically signed by: Yoan Kelsey MD on 05/13/2025 09:53:14 Dictated By: Yoan Kelsey MD Signed By: <Electronically signed by Yoan Kelsey MD in OV> 05/13/2554 DD/ 2 TD/TT: 05/13/25952 [employer]: Assessment & Plan Assessment & Plan (1) Postmenopausal bleeding: Code(s): N95.0 - Postmenopausal bleeding Plan [place] US findings- Impression: 1. 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 Uterine fibroid. 2. There is heterogeneity of the endometrium with minimal cystic changes follow-up pelvic ultrasound during the proliferative phase of the menstrual cycle. 3. Normal sonographic appearance right ovary. Left ovary not identified. No adnexal masses or fluid collections. Advised due to findings possible endometrial polyps or hyperplasia to schedule a hysteroscopy for further evaluation to rule out atypia, hyperplasia, precancer, or cancer with Dr. Ying, appointment to be scheduled today for consult. P reprocedure anticipatory guidance reviewed for hysteroscopy. The patient expressed understanding and agreement with the plan of care. All of her questions and concerns were addressed to the best of my ability. This note is constructed using voice recognition software. While every effort has been made to ensure accuracy, primary grade teacher errors may have been included. Coding Level of Care Code Est Pt Level 3 (87086) Diagnoses Postmenopausal bleeding N95.0
[2025-06-23 13:33] VITALS: BP 126/80; BMI 26.1
--- OUTSIDE RECORDS SUMMARY | 2025-06-23 17:23 | XMS_ITS | Clinical Summary ---
Author Organization [employer] Address [address] [place] [address] [address] [place] [address] Care Team Providers Care Digester Cook Name Role Phone Evelyn Morales MD Primary Care Provider [phone] Allergies No known active allergies Medications cyclobenzaprine (Flexeril) 5 MG tablet take 1 or 2 tablets by mouth at bedtime. May take 1 additional dose. Please do not drive or operate machine after taking this medication 2 Active D3-1000 25 MCG (1000 UT) capsuleIndications :Vitamin D deficiency TAKE 1 CAPSULE BY MOUTH EVERY DAY 90 capsule 3 3 Active celecoxib (CeleBREX) 200 MG capsuleIndications :Osteoarthritis of right hip, unspecified osteoarthritis type TAKE 1 CAPSULE BY MOUTH EVERY DAY IF NEEDED FOR HIP PAIN 30 capsule 5 Active Active Problems Problem Noted Date Diagnosed Date [...] fixation by Dr. Calix Currently following with [facility] provider and is receiving [...] Assessment & Plan (09/18/2022 5:07 AM EST): January 2021 L4-5 laminectomy, mesial facetectomy, interbody fusion, and nonsegmental screw fixation by Dr. Calix Currently following with [facility] provider and is receiving [...] fixation by Dr. Calix Currently following with [facility] provider and is receiving [...] Assessment & Plan (09/18/2022 5:21 AM EST): January 2021 L4-5 laminectomy, mesial facetectomy, interbody fusion, and nonsegmental screw fixation by Dr. Calix Currently following with [facility] provider and is receiving [...] Assessment & Plan (09/18/2022 5:11 AM EST): 11/26/21 TC 274; TG 514; HDL 51; LDL was unable to be calculated due to highTG Continue working on lifestyle modifications, including reducing alcohol intake and high fructose corn syrun (she drinks Gatorade) Repeat lipid profile in Nov 2022 Alcohol [...] Encounters Date Type Department Care Team Description 05/30/2025 Orders Only GENERIC EXTERNAL DATA DEPARTMENT Provider, Generic External Data 05/30/2025 Results Follow-Up [facility] [address] [place] [phone] Evelyn Morales MD TSH with Reflex to Free T4, Hemoglobin A1c, Comprehensive Metabolic Panel, Lipid Panel with Reflex to Direct LDL 04/18/2025 Orders Only [address] [phone] Evelyn Morales MD Colon cancer screening (Primary Dx); Tubular adenoma of colon 04/18/[address] [phone] Evelyn Morales MD Referral 04/07/2025 Orders Only GENERIC EXTERNAL DATA DEPARTMENT Provider, Generic External Data from Last 3 Months Immunizations Immunization Administration Dates Next Due Hep B, adult [...] 98 07/01/2024 11:47 AM EDT Temperature 36.4 C (97.5 F) 07/01/2024 11:47 AM EDT Respiratory Rate 19 07/01/2024 11:4 7 AM EDT Oxygen Saturation [...] FOBT 1970 SDOH Screening 1970 Sigmoidoscopy 1970 Disability Screening 1969 Alcohol/Substance Use Screening 1981 Pneumococcal Vaccine: 50+ Years (2 of 2 - PCV) 07/13/2021 07/13/2020 Depression Monitoring 12/29/2024 07/01/2024 , 07/01/2024 Mammogram 03/14/2025 03/14/2023, 02/25/2022, 05/24/2020 COVID-19 Vaccine ( - 2023-2 5 season) 2025 Influenza Vaccine (#1) 2025 2, 07/13/2020 Colonoscopy 06/29/2025 06/29/2020 Colorectal Cancer Screening 06/29/2025 Tobacco Screening 07/01/2025 07/01/2024 Pap Smear 04/07/2028 04/07/2025 Cervical Cancer Screening 04/07/2030 HPV/Cotest 04/07/2030 04/07/2025 Lipid Panel 05/30/2030 05/30/2025, 11/26/2021, 05/11/2020 DTaP/Tdap/Td Vaccines (2 - T [...] Procedure Name Priority Date/Time Associated Diagnosis Comments LH Routine 05/30/2025 12:38 PM EDT FSH Routine 05/30/2025 12:38 PM EDT LIPID PANEL WITH REFLEX TO DIRECT LDL Routine 05/30/2025 12:38 PM EDT Mixed hyperlipidemia Hypertriglyceridemia COMPREHENSIVE METABOLIC PANEL Routine 05/30/2025 12:38 PM EDT Elevated blood pressure reading without diagnosis of hypertension HEMOGLOBIN A1C Routine 05/30/2025 12:38 PM EDT Screening for diabetes mellitus TSH W/REFLEX TO FT4 Routine 05/30/2025 1 2:38 PM EDT Elevated blood pressure reading without diagnosis of hypertension PAP SMEAR Routine 04/07/2025 8:54 AM EDT HPV DNA, LOW/HIGH RISK Routine 04/07/2025 8:54 AM EDT CHLAMYDIA/N. GONORRHOEAE RNA, TMA, UROGENITAL Routine 04/07/2025 8:07 AM EDT BACTERIAL VAGINOSIS PANEL Routine 04/07/2025 8:07 AM EDT BI MAMMOGRAM SCREENING TOMOSYNTHESIS BILATERAL Routine 03/14/2023 9:38 AM EDT HM COLONOSCOPY Routine 06/29/2020 ZZZ HISTORICAL HEPATITIS C AB W/REFL TO HCV RNA, QN, PCR Routine 05/11/2020 10:53 AM EDT HIV 1/2 ANTIGEN/ANTIBODY, FOURTH GENERATION W/RFL Routine 05/11/2020 10:53 AM EDT from Last 3 Months or Most Recently Relevant to Health Maintenance Results * TSH with Reflex to Free T4 (05/30/2025 12:38 PM EDT) TSH reflex Free T4 1.33 0.32 - 4.0 uIU/mL [facility] Blood 05/30/2025 12:3 8 PM EDT 05/30/2025 12:38 PM EDT us Evelyn Morales MD LAB BLOOD ORDERABLES Final Resul t [facility] [address] [place] [address] [phone] * (ABNORMAL) Lipid Panel with Reflex to Direct LDL (05/30/2025 12:38 PM EDT) Triglycerides 315(H) <150 mg/dL [facility] Comment:Desirable Triglyceri de: less than 150 mg/dLBorderline High Triglyceride 150-199 mg/dLHigh Triglyceride: 200-499 mg/dLVery High Triglyceride: greater than or equal to 5OO mg/dL Cholesterol 306(H) <200 mg/dL [facility] Comment:Desirable Cholestero l: less than 200 mg/dLBorderline High Cholesterol: 200-239 mg/dLHigh Cholesterol: greater than 239 mg/dL LDL Cholesterol Calculated 191(H) <100 mg/dL [facility] Comment:Desirable LDL: less than 100 mg/dLNear Optimal/Above Optimal LDL: 110- 129 mg/dLBorderline High LDL: 130-159 mg/dLHigh LDL: 160-189 mg/dLVery High LDL: greater than or equal to 190 mg/dL HDL Cholesterol 52 >40 mg/dL [facility] Comment:Desirable HDL: great er than 40 mg/dL Note: This HDL assay may give artificially low results in patients with liver disease. Blood 05/30/2025 12:3 8 PM EDT 05/30/2025 12:38 PM EDT Evelyn Morales MD LAB BLOOD ORDERABLES Final Resul t [facility] [address] [place] [address] [phone] * Hemoglobin A1c (05/30/2025 12:38 PM EDT) Hemoglobin A1c 5.3 <6.0 % [facility] Comment:Hemoglobin A1C Refer ence Range Adults: 4.8 - 6.0 % Non diabetic: < 6.0 % Goal: < 7.0 %Additional Action Suggested: > 8.0 %Note: Hemoglobin A1c results are invalid for patients with abnormal amounts of HbF. Blood transfusions may impact the HbA1c concentration in the patient sample. Estimated Average Glucose 105 mg/dL [facility] Comment:eAG = Estimated ave rage glucose which is %A1C expressed asaverage glucose, using the formula of the U5J-AovlatxBgyifdy Glucose study (ADAG), Diabetes Care, Vol.31,#8,2007 Blood Venous blood specimen / Unknown 05/30/2025 12:38 PM EDT 05/30/2025 12:38 PM EDT us Evelyn Morales MD LAB BLOOD ORDERABLES Final Resul t Performing Organization Address [facility] Co de Phone Number [facility] [address] [place] [phone] * LH (05/30/2025 12:38 PM EDT) Lutenizing Hormone 53.0 mIU/mL [facility] Comment:Reference Range Foll icular Phase 1.9-12.5 Mid-Cycle Peak 8.7-76.3 Luteal Phase 0.5-16.9 Postmenopausal 10.0-54.7THIS TEST WAS PERFORMED AT:[employer] [address] [phone] TABARES MD 05/30/2025 12:3 8 PM EDT 05/30/2025 12:38 PM EDT us Generic External Data Provider LAB BLOOD ORDERAB LES Final Result Performing Organization Address [facility]/ZIP Co de Phone Number [facility] [address] [place] [phone] * FSH (05/30/2025 12:38 PM EDT) Follicle Stimulating Hormone 91.7 mIU/mL [facility] Comment:Reference Range Fol licular Phase 2.5-10.2 Mid-cycle Peak 3.1-17.7 Luteal Phase 1.5- 9.1 Postmenopausal 23.0-116.3THIS TEST WAS PERFORMED AT:[employer] [place] [phone] TABARES MD 05/30/2025 12:3 8 PM EDT 05/30/2025 12:38 PM EDT us Generic External Data Provider LAB BLOOD ORDERAB LES Final Result [facility] [address] [place] [address] [phone] * Comprehensive Metabolic Panel (05/30/2025 12:38 PM EDT) Sodium 140 135 - 145 mmol/L [facility] Potassium 4.0 3.3 - 5.1 mmol/L [facility] Chloride 108 96 - 108 mmol/L [facility] Carbon Dioxide 24 22 - 29 mmol/L [facility] Anion Gap 12 12 - 20 [facility] Urea Nitrogen (BUN) 15 9 - 16 mg/dL [facility] Creatinine, Serum 0.60 0.5 - 1.4 mg/dL [facility] Estimated Glomerular Filt Rate >60 [facility] Comment:Chronic Kidney Disea se: Estimated GFR < 60 mL/min/1.23z0Kcbswy Kidney Disease: Estimated GFR < 15 mL/min/1.73m2 Glucose 91 60 - 115 mg/dL [facility] Calcium 9.3 8.4 - 10.2 mg/dL [facility] Bilirubin, Total 0.5 0.0 - 1.0 mg/dL [facility] Aspartate Amino Transferase 25 5 - 31 U/L [facility] Alanine Aminotransferase 27 0 - 31 U/L [facility] Total Protein 7.1 6.5 - 8.0 g/dL [facility] Albumin Level 4.7 3.5 - 5.0 g/dL [facility] Alkaline Phosphatase 72 39 - 117 U/L [facility] Blood Venous blood specimen / Unknown 05/30/2025 12:38 PM EDT 05/30/2025 12:38 PM EDT us Evelyn Morales MD LAB BLOOD ORDERABLES Final Resul t Performing Organization Address [facility] Co de Phone Number [facility] [address] [place] [phone] * HPV DNA, Low/High Risk (04/07/2025 8:54 AM EDT) HPV High Risk Negative Negative [facility] HPV Genotype 16 Negative Negative [facility] HPV Genotype 18 Negative Negative [facility] Comment:HPV testing performe d at [facility] (CLIA#[id number]), [address] [place] [address].Testing for HPV was performed using the Nathanael RENETTA 6800system. The presence of HPV in the female genital tract isassociated with a number of diseases, including cervicalcarcinoma. The HPV DNA high risk pool tests for HPV 31, 33,35, 39, 45, 51, 52, 56, 58, 59, 66 and 68. The testing forHPV 16 and 18 genotypes has also been performed. A positiveresult indicates detection of nucleic acid sequences fromone or more subtypes, whereas a negative result indicatessuch sequences were not detected. 04/07/2025 8:54 AM EDT 04/07/2025 10:50 AM EDT us Generic External Data Provider LAB BLOOD ORDERAB LES Final Result Performing Organization Address [facility]/ZIP Co de Phone Number [facility] [address] [place] [phone] * Pap Smear (04/07/2025 8:54 AM EDT) 04/07/2025 8:54 AM EDT 04/07/2025 10:50 AM EDT Narrative [facility] - 04/13/2025 11:40 AM EDT ----- ------- Name: Gladis Palmer Age/Sex: 54/F : 1970 Unit#: [id number] Attend Dr: Emelyn Cline CNM Re04/07/25 Status: DEP REF Location: [facility] Disch: ----- ------- SPEC : [id number] RECD: 04/07/25 STATUS: CHRISTIANO SHAH NUM: [id number] CLARA: 04/07/25 [facility] DR: Emelyn Cline CNM ENTERED: 04/07/25 SP TYPE: Pap Smr OTHR DR: Evelyn Morales MD ORDERED: Pap Smear Interpretation Satisfactory for evaluation. Negative for intraepithelial lesion or malignancy. HPV High Risk: Negative HPV Genotyping 16: Negative HPV Genotyping 18: Negative Clinical Information LMP: 12/2024 Previous PAP test: 02/2022, WNL Other history: Abnormal uterine and vaginal bleeding, encounter for well woman exam Material Received ThinPrep-Cervical PAP Disclaimer As of August 04, 2024, the technical services to include automated prescreening performed by the ThinPrep Imaging System, PAP screening and HPV testing will be performed at [facility] (CLIA #[id number]), [address] [place] [address]. Testing for HPV was performed using the Nathanael RENETTA 6800 system. The presence of HPV in the female genital tract is associated with a number of diseases, including cervical carcinoma. The HPV DNA high risk pool tests for HPV 31, 33, 35, 39, 45, 51, 52, 56, 58, 59, 66 and 68. The testing for HPV 16 and 18 genotypes has also been performed. A positive result indicates detection of nucleic acid sequences from one or more subtypes, whereas a negative result indicates such sequences were not detected. All professional services are performed by [facility] ([address] [place] [address]; ; CLIA #[id number]). The PAP Test is a screening procedure with the inherent possibility of both false negative and false positive results. Results should be interpreted in the context of historic and current clinical findings. Reliability of the PAP Test is enhanced by performing the test on a regular repetitive basis. CONTINUED ON NEXT PAGE ----- ------- Name: Gladis Palmer Age/Sex: 54/F : 1970 Unit#: [id number] Attend Dr: Emelyn Cline CNM Re04/07/25 Status: DEP REF Location: [facility] Disch: ----- ------- SPEC : [id number] RECD: 04/07/25 STATUS: CHRISTIANO SHAH NUM: [id number] CLARA: 04/07/25 [facility] DR: Emelyn Cline CNM ENTERED: 04/07/25 SP TYPE: Pap Smr BERENICE DR: Evelyn Morales MD ORDERED: Pap Smear Copies To: Emelyn Cline CNM [facility] Women[facility] Services [address] [place] [address] Evelyn Morales MD [facility] [address] [place] [address] ----- ------- Signed (signature on file) SEAN Ceja (ASCP) 04/13/25 1140 ----- ------- END OF REPORT us Generic External Data Provider LAB CYTOLOGY CLAUDIA RODRIGUEZ Final Result [facility] [address] [place] [address] [phone] * Bacterial Vaginosis (04/07/2025 8:07 AM EDT) TRICHOMONAS VAGINALIS DETECTION BY PCR NOT DETECTED Not Detect [facility] BACTERIAL VAGINOSIS DETECTION BY PCR NEGATIVE Negative [facility] Comment:The BV organism targ ets of the Xpert Xpress MVP test can becommensal in women; Xpert Xpress MVP positive results forbacterial vaginosis should be considered in conjunction withother clinical and patient information to determine thedisease status. Organisms that are not detected by the XpertXpress MVP test have also been reported to be associatedwith BV and aerobic vaginitis.The Xpert Xpress MVP test performance has not been evaluatedin patients under the age of 14. ELLY GROUP DETECTION BY PCR NOT DETECTED Not Detect [facility] Elly glab krusei PCR NOT DETECTED Not Detect [facility] 04/07/2025 8:07 AM EDT 04/07/2025 10:44 AM EDT us Generic External Data Provider LAB MICROBIOLOGY - GENERAL ORDERABLES Final Result [facility] [address] [place] [phone] * Chlamydia/N. Gonorrhoeae RNA, TMA, Urogenitial (04/07/2025 8:07 AM EDT) CT PCR NOT DETECTED Not Detect. [facility] Comment:A not detected test result does not exclude the possibilityof infection because test results can be affected byimproper specimen collection, concurrent antibiotic therapy,or the number of organisms in the specimen which may bebelow the sensitivity of the test. As with many diagnostictests, results from the Xpert CT/NG assay should beinterpreted in conjunction with other laboratory andclinical data available to the clinician.Xpert CT/NG performance has not been evaluated in patientsless than 14 years of age. The assay should not be used forthe evaluationof suspected sexual abuse or for other medico-legalindications. Additional testing is recommended in anycircumstance when false positive or false negative resultscould lead to adverse medical, social or psychologicalconsequences. NG PCR NOT DETECTED Not Detect. [facility] Comment:A not detected test result does not exclude the possibilityof infection because test results can be affected byimproper specimen collection, concurrent antibiotic therapy,or the number of organisms in the specimen which may bebelow the sensitivity of the test. As with many diagnostictests, results from the Xpert CT/NG assay should beinterpreted in conjunction with other laboratory andclinical data available to the clinician.Xpert CT/NG performance has not been evaluated in patientsless than 14 years of age. The assay should not be used forthe evaluationof suspected sexual abuse or for other medico-legalindications. Additional testing is recommended in anycircumstance when false positive or false negative resultscould lead to adverse medical, social or psychologicalconsequences. 04/07/2025 8:07 AM EDT 04/07/2025 10:44 AM EDT us Generic External Data Provider LAB MICROBIOLOGY - GENERAL ORDERABLES Final Result [facility] [address] [place] [phone] * BI Mammogram Screening Tomosynthesis Bilateral (03/14/2023 9:38 AM EDT) Anatomical Region Laterality Modality Breast Bilateral Mammography 03/14/2023 9:38 AM EDT Narrative 03/15/2023 2:09 PM EDT [address] [place] [address] Mammography Report Signed Patient: Gladis Palmer MR#: [id number] : 1970 Acct:[id number] Age/Sex: 52 / F ADM Date: 03/14/23 Loc: [facility] Attending Dr: Evelyn Morales MD Ordering Physician: Evelyn Morales MD Results: 1Negative Date of Service: 03/14/23 Follow Up: 1 Year From Orig inal Mammogram Procedure(s): MM tomosynthesis screening BI Accession Number(s): [id number] cc: Evelyn Morales MD EXAMINATION: MM SCREENING [...] in OV> 03/15/23 1406 DD/ 0938 TD/TT: Animal Keeper: OCASIO Procedure Note Donotuseinterpreter, Image - 04/10/2023 [facility] [address] [place] [address] Mammography Report Signed Patient: Gladis PalmerMR#: [id number] : 1970Acct:[id number] Age/Sex: 52 / FADM Date: 03/14/23 Loc: HO.MAMMO Attending Dr: Evelyn Morales MD Ordering Physician: Evelyn Morales MDResults: 1Negative Date of Service: 03/14/23Follow Up: 1 Year From [facility] Mammogram Procedure(s): MM tomosynthesis screening BI Accession Number(s): [id number] cc: Evelyn Morales MD EXAMINATION: MM SCREENING [...] in OV> 03/15/23 1406 DD/ 0938 TD/TT: Animal Keeper: AMARJIT [facility] External Provider IMG BI PROCEDURES Edited Result - Final * Colonoscopy (06/29/2020) Colonoscopy Normal Normal Historical Provider HEALTH MAINTENANCE Final Result * HEPATITIS C AB W/REFL TO HCV RNA, QN, PCR (05/11/2020 10:53 AM EDT) HEPATITIS C ANTIBODY NON-REACT JESSENIA NON-REACT JESSENIA [facility] INDEX 0.00 <1.00 [facility] Comment: HCV antibody was non-reactive. There is no laboratory evidence of HCV infection. In most cases, no further action is required. However, if recent HCV exposure is suspected, a test for HCV RNA (test code 64136) is suggested. For additional information please refer to http://[employer].Daqi/faq/TKZ23b3 (This link is being provided for informational/ educational purposes only.) HEPATITIS C ANTIBODY NON-REACT JESSENIA NON-REACT JESSENIA [facility] INDEX 0.00 <1.00 [facility] Comment: HCV antibody was non-reactive. There is no laboratory evidence of HCV infection. In most cases, no further action is required. However, if recent HCV exposure is suspected, a test for HCV RNA (test code 59333) is suggested. For additional information please refer to http://[employer].Daqi/faq/VTR75k1 (This link is being provided for informational/ educational purposes only.) 05/11/2020 10:5 3 AM EDT us Evelyn Morales MD HISTORICAL/NON ORDERABLE LABS Fi nal Result [facility] [address] [place] [address], * HIV 1/2 ANTIGEN/ANTIBODY,FOURTH GENERATION W/RFL (05/11/2020 10:53 AM EDT) HIV-1/2 ANTIGEN AND ANTIBODIES, 4TH GENERATION W/ REFLEX NON-REACT JESSENIA NON-REACT JESSENIA [facility] Comment: HIV-1 antigen and HIV-1/HIV-2 antibodies were not detected. There is no laboratory evidence of HIV infection. PLEASE NOTE: This information has been disclosed to you from records whose confidentiality may be protected by state law. If your state requires such protection, then the state law prohibits you from making any further disclosure of the information without the specific written consent of the person to whom it pertains, or as otherwise permitted by law. A general authorization for the release of medical or other information is NOT sufficient for this purpose. For additional information please refer to http://[employer].Daqi/faq/IGT002 (This link is being provided for informational/ educational purposes only.) The performance of this assay has not been clinically validated in patients less than 2 years old. HIV-1/2 ANTIGEN AND ANTIBODIES, 4TH GENERATION W/ REFLEX NON-REACT JESSENIA NON-REACT JESSENIA [facility] Comment: HIV-1 antigen and HIV-1/HIV-2 antibodies were not detected. There is no laboratory evidence of HIV infection. PLEASE NOTE: This information has been disclosed to you from records whose confidentiality may be protected by state law. If your state requires such protection, then the state law prohibits you from making any further disclosure of the information without the specific written consent of the person to whom it pertains, or as otherwise permitted by law. A general authorization for the release of medical or other information is NOT sufficient for this purpose. For additional information please refer to http://[email or web address]/faq/CKK418 (This link is being provided for informational/ educational purposes only.) The performance of this assay has not been clinically validated in patients less than 2 years old. HIV-1/2 ANTIGEN AND ANTIBODIES, 4TH GENERATION W/ REFLEX NON-REACT JESSENIA NON-REACT JESSENIA [facility] Comment: HIV-1 antigen and HIV-1/HIV-2 antibodies were not detected. There is no laboratory evidence of HIV infection. PLEASE NOTE: This information has been disclosed to you from records whose confidentiality may be protected by state law. If your state requires such protection, then the state law prohibits you from making any further disclosure of the information without the specific written consent of the person to whom it pertains, or as otherwise permitted by law. A general authorization for the release of medical or other information is NOT sufficient for this purpose. For additional information please refer to http://education.Daqi/faq/RVR104 (This link is being provided for informational/ educational purposes only.) The performance of this assay has not been clinically validated in patients less than 2 years old. 05/11/2020 10:5 3 AM EDT us Evelyn Morales MD LAB BLOOD ORDERABLES Final Resul t [facility] [address] from Last 3 Months or Most Recently Relevant to Health Maintenance Insurance [facility] Care Teams Digester Cook Relationship Specialty Start Date End Date Evelyn Morales MD [address] [place] [id number] PCP - General Family Medicine 07/13/20
--- OUTSIDE RECORDS SUMMARY | 2025-06-23 17:23 | XMS_ITS | Encounter Summary ---
Author Organization [employer] Address [address] [place] [address] Care Team Providers Care Dramatic Reader Name Role Phone Evelyn Morales MD Primary Care Provider [phone] Reason for Visit * Reason Onset Date Comments Referral 04/18/2025 Encounter Details Date Type Department Care Team ([facility] st Contact Info) Description 04/18/2025 Telephone [facility] [address] [place] [address] Evelyn Morales MD [address] [place] [address] Referral Social History Tobacco Use Types Packs/Day Years [...] encounter Miscellaneous Notes * Telephone Encounter - Evelyn Morales MD - 04/18/2025 5:09 PM EDT Referral done * Telephone Encounter - Mirta Barker - 04/18/2025 11:08 AM EDT Tc from pt requesting a referral to [place] [facility] Pt stated she was scehduled for a colonoscopy last year but was unable to attend and was advised to contact PCP for a new referral. documented in this encounter Plan of Treatment Not on file documented as of this encounter Visit Diagnoses Not on filedocumented in this encounter Additional Health Concerns Assessment Noted Time PHQ-9 Depression Total Score: 23 024 11:55 AM EDT documented as of this encounter Care Teams Dramatic Reader Relationship Specialty Start Date End Date Evelyn Morales MD [address] [place] [address] PCP - General Family Medicine 07/13/20 documented as of this encounter
--- OUTSIDE RECORDS SUMMARY | 2025-06-23 17:23 | XMS_ITS | Encounter Summary ---
Author Organization [employer] Address [address] [place] [address] [place] [address] Care Team Providers Care Cpr Instructor Name Role Phone Evelyn Morales MD Primary Care Provider [phone] Encounter Details Date Type Department Care Team ([facility] st Contact Info) Description 04/14/2024 Orders Only [facility] [address] [place], [place] [phone] Afshan Cleveland, СЕРГЕЙ [address] [place] [address] Osteoarthritis of right hip, unspecified osteoarthritis type [...] Primary documented in this encounter Care Teams Cpr Instructor Relationship Specialty Start Date End Date Evelyn Morales MD [address] [place] [address] PCP - General Family Medicine 07/13/20 documented as of this encounter
--- OUTSIDE RECORDS SUMMARY | 2025-06-23 17:23 | XMS_ITS | Encounter Summary ---
Author Organization [employer] Address [address] [place] [address] 7 [place] [address] Care Team Providers Care Decal Transferrer Name Role Phone Evelyn Morales MD Primary Care Provider [phone] Reason for Referral * Consultation (Routine) - Closed Specialty Diagnoses / Procedures Referred By Best mallory Referred To Contact Gastroenterology Diagnoses Tubular adenoma of colon Evelyn Morales MD [address] [place] [address] Phone: tel: fax: [facility] Referral ID Status Reason Start Date Expiration Date V isits Requested Visits Authorized [id number] Closed Specialty Services Required 04/18/2025 04/18/2026 1 1 Encounter Details Date Type Department Care Team (Late st Contact Info) Description 04/18/2025 Orders Only [facility] MED[facility]INE [address] [place] [address] [phone] Evelyn Morales MD [address] [place] [address] [phone] Colon cancer screening (Primary Dx); Tubular adenoma of colon Social History Tobacco Use Types Packs/Day Years Used Date Smoking Tobacco: Every Day Cigarettes Passive Smoke Exposure: Never Smokeless Tobacco: Never Alcohol Use Standard Drinks/Week Comments Never 0 (1 standard drink = 0.6 oz pur e alcohol) Depression Answer Date Recorded Patient Health Questionnaire-9 Score 07/01/2024 Patient Health Questionnaire-9 Score 07/01/2024 Last PHQ-9: Questionnaire Data Not on [...] as of this encounter Plan of Treatment Scheduled Referrals Name Type Priority Associated Diagnoses Order Schedule Referral to Gastroenterology Outpatient Referral Routine Tubular adenoma of colon Expected: 04/18/2025 (Approximate), Expires: 04/18/2026 documented as of this encounter Visit Diagnoses Diagnosis Colon cancer screening- Primary Special screening for malignant neoplasms, colon Tubular adenoma of colon Benign neoplasm of colon documented in this encounter Additional Health Concerns Assessment Noted Time PHQ-9 Depression Total Score: 23 024 11:55 AM EDT documented as of this encounter Care Teams Decal Transferrer Relationship Specialty Start Date End Date Evelyn Morales MD [address] [place] [id number] PCP - General Family Medicine 07/13/20 documented as of this encounter
--- OUTSIDE RECORDS SUMMARY | 2025-06-23 17:23 | XMS_ITS | Clinical Summary ---
Author Organization [facility] Address [address] [place] [address] Care Team Providers Care Analytical Technician Name Role Phone Evelyn Morales MD Primary Care Provider [phone] Social History Tobacco Use Types Packs/Day Years [...] age to complete this topic Care Teams Analytical Technician Relationship Specialty Start Date End Date Evelyn Morales MD [address] [place] [address] PCP - General Family Medicine 12/05/20
== END 2025-06-23 14:28 | disposition home or self-care (01) ==
LOC: HO.HWS 13:26
PROVIDERS: PCP Family Medicine; Visit Provider Advanced Practice Midwife
DX: N95.0 Postmenopausal bleeding (principal)
CPT/HCPCS: 99213

== ENCOUNTER → 2025-06-23 13:26 | Outpatient (BNVA) | payer OTHER, SELFPAY | PROVIDERS: PCP Family Medicine; Visit Provider Advanced Practice Midwife | DX: Z71.2 Person consulting for explanation of examination or test findings (principal); N95.0 Postmenopausal bleeding | CPT/HCPCS: 99212 ==

== ENCOUNTER 2025-08-05 14:32 | Outpatient (AMB) | payer OTHER, SELFPAY ==
--- NOTE | 2025-08-05 14:48 | A.OFFVIS_ITS ---
Vital Signs 08/05/25 14:50 Height 5 ft 6 in Weight 162 lb BMI 26.1 BP 112/64 Intake Visit Reasons: Hysteroscopy consult Pairer Inspector Required: No Information Interpreted: non-clinical & clinical Script Girl: Script Girl Present Accompanied by: Self / Same As Patient Allergies No Known Allergies Allergy (Verified 08/05/25 14:51) Is last menstrual period known: No Post menopausal: Yes Do you need a note to return to daycare/school/sports/work: Yes (for surgery on friday) HPI Comments Details: Presenting referred from Emelyn Cline for abnormal ultrasound finding. The patient has been having irregular menstrual cycles the following workup was done FSH/LH elevated in the menopausal range GC/CT negative Co testing negative Pelvic ultrasound showed the following: Anteverted uterus, heterogeneous myometrium with arcuate uterus measuring 9.4 x 6 x 4 x 8.4 cm. Well defined endometrium, measuring 10 mm on the right and 11 mm in thickness on the left. The endometrium is slightly heterogeneous with minimal cystic changes possible hyperplasia can not exclude polyp or metaplasia/dysplasia. Follow-up ultrasound during the proliferative phase of the menstrual cycle is recommended. Incidental nabothian cysts. Uterine fibroids: Fundal 1.9 x 1.7 x 1.4 cm previously measuring 2.0 x 1.8 x 1.5 cm The right ovary measures, 2.8 x 1.0 x 1.8 cm. Normal sonographic appearance right ovary. Normal color Doppler with normal ovarian arterial and venous spectral tracing, Left ovary not identified No adnexal masses or fluid collections. No free fluid PFSH Medical History Fibroid Arthritis Back pain with right-sided sciatica Anxiety and depression Restless legs syndrome (RLS) Smoker Surgical History History of total right hip replacement History of breast lump/mass excision H/O colonoscopy History of removal of ovarian cyst Family History Brother Hx of cancer of lung Mother Cervical cancer Social History Household Members: Significant Other Housing: House Alcohol intake: current Alcohol intake frequency: a few times a week Alcohol type: wine Patient Tobacco Use Status: Current everyday Tobacco user Cigarettes Per Day: 10 Substance Use Type: Marijuana Current occupational status: employed 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 [employer] Sexual orientation: Straight/Heterosexual Gender identity: Female Female Reproductive History Menstrual Age of Menarche: 14 Date of last menstrual period: 08/10/20 Total pregnancies: 2 Full term: 2 Review of Systems Card Reports as per HPI and Reports no additional complaints Resp Reports as per HPI and Reports no additional complaints GI Reports as per HPI and Reports no additional complaints Reports as per HPI Physical Exam Const General: cooperative, healthy appearing and comfortable Resp Effort & Inspection: normal respiratory effort Auscultation: clear to auscultation bilaterally Percussion: percussion normal Cardio Palpation: normal PMI Rate: regular rate Rhythm: regular rhythm Heart sounds: no murmurs and no rubs Peripheral pulses: Peripheral pulses 2+ throughout GI Inspection: Yes normal to inspection Palpation (GI): Soft to palpation, nontender, no guarding, not rigid and No hepatosplenomegaly present Percussion: Yes normal to percussion Auscultation: normal bowel sounds Rectal Exam - Female: deferred Assessment & Plan Assessment & Plan (1) Abnormal ultrasound of endometrium: Code(s): R93.5 - Abnormal findings on diagnostic imaging of other abdominal regions, including retroperitoneum Category: Medical Plan: Discussed with the patient the pelvic ultrasound findings, abnormal endometrium, differential diagnose including but not limited to endometrial hyperplasia and/or malignancy or polyps. Recommended to the patient that the next step is an endometrial sampling via hysteroscopy D&C possible polypectomy versus endome trial biopsy to r/o endometrial pathology including hyperplasia or cancer. All the pros and cons risks and benefits of each approach were discussed with the patient, endometrial biopsy being less invasive, office procedure with less sensitivity and inability diagnose a polyp and removal versus hysteroscopy done under anesthesia more invasive more sensitive to endometrial cancer and possibility of diagnosing and endometrial polyp with the possibility of polypectomy. All questions were answered pt verbalized understanding and decided to proceed with hysteroscopy D&C possible polypectomy/myomectomy. Discussed with the patient the procedure , all benefits and risks including but not limited to inability to complete the procedure , insufficient endometrial tissue for a complete evaluation of the endometrial cavity , bleeding, infection, possible need for blood transfusion with all its risk ( HIV,syphilis, Hepatitis, anaphylaxis shock, others..), injury to bladder, rectum, possible need for laparoscopy/laparotomy or hysterectomy. The patient verbalized understanding and signed the consent. Instructions given the patient to stay NPO after midnight the day prior to the procedure and to schedule a 2 week postoperative appointment (2) Fibroid: Code(s): D21.9 - Benign neoplasm of connective and other soft tissue, unspecified Category: Medical Plan: Discussed with the patient the findings on pelvic ultrasound & the risk of myosarcoma; in addition reviewed with the patient that malignancy and pre malignancy cannot be ruled out without hysterectomy for pathological evaluation ; furthermore, explained to the patient the limitation of pelvic ultrasound and endometrial biopsy in the setting. Discussed with the patient the typical symptoms that are caused by myomas including but not limited to pelvic pain, pressure symptoms, abnormal uterine bleeding. In addition discussed with the patient options of treatment for myomas including: Serial ultrasounds periodically to follow-up on the size of the myoma versus surgical treatment including hysterectomy and or myomectomy. All pros and cons, risks and benefits of all options were discussed with the patient. The patient understands that delay in surgical treatment in case of myosarcoma can affect her prognosis, after further discussion, the patient decided to think about it and get back to us next visit Coding Level of Care Code Est Pt Level 3 (66173) Diagnoses Abnormal ultrasound of endometrium R93.5 Fibroid D21.9
[2025-08-05 14:50] VITALS: BP 112/64; BMI 26.1
--- OUTSIDE RECORDS SUMMARY | 2025-08-05 16:23 | XMS_ITS | Clinical Summary ---
Author Organization [facility] Address [address] [place] [address] Care Team Providers Care Recovery Assistant Name Role Phone Evelyn Morales MD Primary Care Provider [phone] Social History Tobacco Use Types Packs/Day Years [...] age to complete this topic Care Teams Recovery Assistant Relationship Specialty Start Date End Date Evelyn Morales MD [address] [place] [address] PCP - General Family Medicine 12/05/20
--- OUTSIDE RECORDS SUMMARY | 2025-08-05 16:23 | XMS_ITS | Clinical Summary ---
Author Organization [employer] Address [address] [place] [address] Care Team Providers Care Roll Picker Name Role Phone Evelyn Morales MD Primary Care Provider [phone] Surgical History Surgery Date Site/Laterality Comments OTHER SURGICAL HISTORY PROCEDURE: [place] ARTHRODESIS POSTERIOR INTERBODY 1 NTRSPC LUMBAR; COMMENT: [...] Health Maintenance Due Date Last Done Comments Pneumococcal Vaccine: 50+ Years (2 of 2 - PCV) 07/13/2021 07/13/2020 Depression Screening 10/13/2024 Breast Cancer Screening 03/14/2025 03/14/2023 COVID-19 Vaccine ( - 2023-2 5 season) 2025 Influenza Vaccine (#1) 2025 2, 07/13/2020 Cervical Cancer Screening: P ap Smear 04/07/2028 04/07/2025 DTaP,Tdap,and Td Vaccines (2 - Td or Tdap) 07/13/2030 07/13/2020 RSV Immunization Adult Patients (1 - 1-dose 75+ series) 2044 Zoster Vaccines Completed 11/10/2020, 07/13/2020 Hepatitis B [...] to complete this topic RSV Immunization Patients Under 20 months Aged Out No longer eligible b ased on patient's age to complete this topic Varicella Vaccines Aged Out No longer eligible based on patient's age to complete this topic Care Teams Roll Picker Relationship Specialty Start Date End Date Evelyn Morales MD [address] [place] [phone] PCP - General Family Medicine 12/05/20
== END 2025-08-05 15:28 | disposition home or self-care (01) ==
LOC: HO.HWS 14:32
PROVIDERS: PCP Family Medicine; Visit Provider Obstetrics & Gynecology
DX: R93.5 Abnormal findings on diagnostic imaging of other abdominal regions, including retroperitoneum (principal); D21.9 Benign neoplasm of connective and other soft tissue, unspecified
CPT/HCPCS: 99213

== ENCOUNTER → 2025-08-05 14:32 | Outpatient (BNVA) | payer OTHER, SELFPAY | PROVIDERS: PCP Family Medicine; Visit Provider Obstetrics & Gynecology | DX: R93.5 Abnormal findings on diagnostic imaging of other abdominal regions, including retroperitoneum (principal); D21.9 Benign neoplasm of connective and other soft tissue, unspecified | CPT/HCPCS: 99212 ==

== ENCOUNTER 2025-08-19 06:16 | Day surgery (SDC) | payer OTHER, SELFPAY ==
--- OUTSIDE RECORDS SUMMARY | 2025-08-09 16:41 | XMS_ITS | Encounter Summary ---
Author Organization [employer] Address [address] [place] [address] [address] [place] [address] Care Team Providers Care District Sales Manager Name Role Phone Evelyn Morales MD Primary Care Provider [phone] Reason for Referral * Consultation (Routine) - Closed Specialty Diagnoses / Procedures Referred By Best mallory Referred To Contact Gastroenterology Diagnoses Tubular adenoma of colon Evelyn Morales MD [address] [place] [address] Phone: tel: fax: [facility] Referral ID Status Reason Start Date Expiration Date V isits Requested Visits Authorized [id number] Closed Specialty Services Required 04/18/2025 04/18/2026 1 1 Encounter Details Date Type Department Care Team (Late st Contact Info) Description 04/18/2025 Orders Only [facility] [address] [place] [address] [phone] Evelyn Morales MD [address] [place] [address] [phone] Colon cancer screening (Primary Dx); Tubular adenoma [...] documented as of this encounter Care Teams District Sales Manager Relationship Specialty Start Date End Date Evelyn Morales MD [address] [place] [address] PCP - General Family Medicine 07/13/20 documented as of this encounter
--- OUTSIDE RECORDS SUMMARY | 2025-08-09 16:41 | XMS_ITS | Clinical Summary ---
Author Organization [facility] Address [address] [place] [address] Care Team Providers Care Blast Furnace Checker Name Role Phone Evelyn Morales MD Primary Care Provider [phone] Social History Tobacco Use Types Packs/Day Years [...] age to complete this topic Care Teams Blast Furnace Checker Relationship Specialty Start Date End Date Evelyn Morales MD [address] [place] [address] PCP - General Family Medicine 12/05/20
--- OUTSIDE RECORDS SUMMARY | 2025-08-09 16:41 | XMS_ITS | Encounter Summary ---
Author Organization [employer] Address [address] [place] [address] Care Team Providers Care Financial Intern Name Role Phone Evelyn Morales MD Primary Care Provider [phone] Reason for Visit * Reason Onset Date Comments Referral 04/18/2025 Encounter Details Date Type Department Care Team ([facility] st Contact Info) Description 04/18/2025 Telephone [facility] [address] [place] [address] vEelyn Morales MD [address] [place] [address] Referral Social History Tobacco Use Types Packs/Day [...] pt requesting a referral to gastro at [facility]. Pt stated she was scehduled for a [...] documented as of this encounter Care Teams Financial Intern Relationship Specialty Start Date End Date Evelyn Morales MD [address] [place] [phone] PCP - General Family Medicine 07/13/20 documented as of this encounter
--- OUTSIDE RECORDS SUMMARY | 2025-08-09 16:41 | XMS_ITS | Encounter Summary ---
Author Organization [employer] Address [address] [place] [address] [place] [address] Care Team Providers Care Vacuum Drier Operator Name Role Phone Evelyn Morales MD Primary Care Provider [phone] Encounter Details Date Type Department Care Team ([facility] st Contact Info) Description 04/14/2024 Orders Only [facility] [address] [place], [place] [phone] Afshan Cleveland, СЕРГЕЙ [address] [place] [address] Osteoarthritis of right hip, unspecified osteoarthritis type [...] Primary documented in this encounter Care Teams Vacuum Drier Operator Relationship Specialty Start Date End Date Evelyn Morales MD [address] [place] [address] PCP - General Family Medicine 07/13/20 documented as of this encounter
--- OUTSIDE RECORDS SUMMARY | 2025-08-09 16:42 | XMS_ITS | Clinical Summary ---
Author Organization [employer] Address [address] [place] [address] [address] [place] [address] Care Team Providers Care Paper Coater Name Role Phone Evelyn Morales MD Primary Care Provider [phone] Allergies No known active allergies Medications cyclobenzaprine [...] fixation by Dr. Calix Currently following with [facility] provider and is receiving [...] fixation by Dr. Calix Currently following with [facility] provider and is receiving [...] fixation by Dr. Calix Currently following with [facility] provider and is receiving [...] fixation by Dr. Calix Currently following with [facility] provider and is receiving [...] Provider, Generic External Data 05/30/2025 Results Follow-Up [facility] [address] [place] [phone] Evelyn Morales MD TSH with Reflex to Free T4, Hemoglobin A1c, Comprehensive Metabolic Panel, Lipid Panel with Reflex to Direct LDL from Last 3 Months Immunizations Immunization Administration [...] Mammogram 03/14/2025 03/14/2023, 02/25/2022, 05/24/2020 COVID-19 Vaccine (1 - 2023-2 5 season) 2025 Influenza Vaccine (#1) 2025 , 07/13/2020 Colonoscopy 06/29/2025 06/29/2020 Colorectal Cancer Screening 06/29/2025 Tobacco Screening 07/01/2025 07/01/2024 Pap Smear 04/07/2028 04/07/2025 Cervical Cancer Screening 04/07/2030 HPV/Cotest 04/07/2030 04/07/2025 DTaP/Tdap/Td Vaccines (2 - T d or [...] blood pressure reading without diagnosis of hypertension HPV DNA, LOW/HIGH RISK Routine 04/07/2025 8:54 AM EDT PAP SMEAR Routine 04/07/2025 8:54 AM EDT BI MAMMOGRAM SCREENING TOMOSYNTHESIS BILATERAL [...] Free T4 1.33 0.32 - 4.0 uIU/mL [facility] Blood 05/30/2025 12:3 8 PM EDT 05/30/2025 12:38 PM EDT us Evelyn Morales MD LAB BLOOD ORDERABLES Final Resul t [facility] [address] [place] [address] [phone] * (ABNORMAL) Lipid Panel with Reflex to Direct LDL (05/30/2025 12:38 PM EDT) Triglycerides 315(H) <150 mg/dL [facility] Comment:Desirable Triglyceri de: less than 150 mg/dLBorderline High Triglyceride 150-199 mg/dLHigh Triglyceride: 200-499 mg/dLVery High Triglyceride: greater than or equal to 5OO mg/dL Cholesterol 306(H) <200 mg/dL [facility] Comment:Desirable Cholestero l: less than 200 mg/dLBorderline High Cholesterol: 200-239 mg/dLHigh Cholesterol: greater than 239 mg/dL LDL Cholesterol Calculated 191(H) <100 mg/dL [facility] Comment:Desirable LDL: less than 100 mg/dLNear Optimal/Above Optimal LDL: 110- 129 mg/dLBorderline High LDL: 130-159 mg/dLHigh LDL: 160-189 mg/dLVery High LDL: greater than or equal to 190 mg/dL HDL Cholesterol 52 >40 mg/dL [facility] Comment:Desirable HDL: great er than 40 mg/dL Note: This HDL assay may give artificially low results in patients with liver disease. Blood 05/30/2025 12:3 8 PM EDT 05/30/2025 12:38 PM EDT Evelyn Morales MD LAB BLOOD ORDERABLES Final Resul t Performing Organization Address [facility] Co de Phone Number [facility] [address] [place] [address] [phone] * Hemoglobin A1c (05/30/2025 12:38 PM EDT) Hemoglobin A1c 5.3 <6.0 % [facility] Comment:Hemoglobin A1C Refer ence Range Adults: 4.8 - 6.0 % Non diabetic: < 6.0 % Goal: < 7.0 %Additional Action Suggested: > 8.0 %Note: Hemoglobin A1c results are invalid for patients with abnormal amounts of HbF. Blood transfusions may impact the HbA1c concentration in the patient sample. Estimated Average Glucose 105 mg/dL [facility] Comment:eAG = Estimated ave rage glucose which is %A1C expressed asaverage glucose, using the formula of the G0N-QcbcurhLgnrunz Glucose study (ADAG), Diabetes Care, Vol.31,#8,May. 2007 Blood Venous blood specimen / Unknown 05/30/2025 12:38 PM EDT 05/30/2025 12:38 PM EDT Evelyn Morales MD LAB BLOOD ORDERABLES Final Resul t Performing Organization Address [facility] Co de Phone Number [facility] [address] [place] [phone] * LH (05/30/2025 12:38 PM EDT) Lutenizing Hormone 53.0 mIU/mL [facility] Comment:Reference Range Foll icular Phase 1.9-12.5 Mid-Cycle Peak 8.7-76.3 Luteal Phase 0.5-16.9 Postmenopausal 10.0-54.7THIS TEST WAS PERFORMED AT:[facility] [address] [phone] TABARES MD 05/30/2025 12:3 8 PM EDT 05/30/2025 12:38 PM EDT Generic External Data Provider LAB BLOOD ORDERAB LES Final Result Performing Organization Address [facility] Co de Phone Number [facility] [address] [place] [address] [phone] * FSH (05/30/2025 12:38 PM EDT) Pathologist [facility] Follicle Stimulating Hormone 91.7 mIU/mL [facility] Comment:Reference Range Foll icular Phase 2.5-10.2 Mid-cycle Peak 3.1-17.7 Luteal Phase 1.5- 9.1 Postmenopausal 23.0-116.3THIS TEST WAS PERFORMED AT:[facility] [address] [phone] TABARES MD 05/30/2025 12:3 8 PM EDT 05/30/2025 12:38 PM EDT us Generic External Data Provider LAB BLOOD ORDERAB LES Final Result Performing Organization Address [facility]/ZIP Co de Phone Number [facility] [address] [place] [phone] * Comprehensive Metabolic Panel (05/30/2025 12:38 PM EDT) Pathologist [facility] Sodium 140 135 - 145 mmol/L [facility] Potassium 4.0 3.3 - 5.1 mmol/L [facility] Chloride 108 96 - 108 mmol/L [facility] Carbon Dioxide 24 22 - 29 mmol/L [facility] Anion Gap 12 12 - 20 [facility] Urea Nitrogen (BUN) 15 9 - 16 mg/dL [facility] Creatinine, Serum 0.60 0.5 - 1.4 mg/dL [facility] Estimated Glomerular Filt Rate >60 [facility] Comment:Chronic Kidney Disea se: Estimated GFR < 60 mL/min/1.22p1Ydhvul Kidney Disease: Estimated GFR < 15 mL/min/1.73m2 Glucose 91 60 - 115 mg/dL [facility] Calcium 9.3 8.4 - 10.2 mg/dL [facility] Bilirubin, Total 0.5 0.0 - 1.0 mg/dL [facility] Aspartate Amino Transferase 25 5 - 31 U/L [facility] Alanine Aminotransferase 27 0 - 31 U/L [facility] Total Protein 7.1 6.5 - 8.0 g/dL [facility] Albumin Level 4.7 3.5 - 5.0 g/dL [facility] Alkaline Phosphatase 72 39 - 117 U/L [facility] Blood Venous blood specimen / Unknown 05/30/2025 12:38 PM EDT 05/30/2025 12:38 PM EDT us Evelyn Morales MD LAB BLOOD ORDERABLES Final Resul t [facility] [address] [place] [phone] * HPV DNA, Low/High Risk (04/07/2025 8:54 AM EDT) HPV High Risk Negative Negative [facility] HPV Genotype 16 Negative Negative [facility] HPV Genotype 18 Negative Negative [facility] Comment:HPV testing performe d at [facility] (CLIA#[id number]), [address] [place] [address].Testing for HPV was performed using the Nathanael [...] Provider LAB BLOOD ORDERAB LES Final Result [facility] [address] [place] [phone] * Pap Smear (04/07/2025 8:54 AM EDT) 04/07/2025 8:54 AM EDT 04/07/2025 10:50 AM EDT Tayler [facility] - 04/13/2025 11:40 AM EDT ----- ------- Name: Gladis Palmer Age/Sex: 54/F : 1970 Unit#: [id number] Attend Dr: Emelyn Cline CNM Re04/07/25 Status: DEP REF Location: HO.LNP Disch: ----- ------- SPEC : [id number] RECD: 04/07/25 STATUS: CHRISTIANO SHAH NUM: [id number] CLARA: 04/07/[address] [facility] [address]: Emelyn Cline [facility] ENTERED: 04/07/25 SP TYPE: Pap Smr OT DR: Evelyn Morales MD ORDERED: Pap Smear [...] and HPV testing will be performed at [facility] (CLIA #[id number]), [address] [place] [address]. Testing for HPV was performed using the [...] detected. All professional services are performed by [facility] ([address] [place] [id number]; ; CLIA #[id number]). The PAP Test is a screening procedure with the inherent possibility of both false negative and false positive results. Results should be interpreted in the context of historic and current clinical findings. Reliability of the PAP Test is enhanced by performing the test on a regular repetitive basis. CONTINUED ON NEXT PAGE ----- ------- Name: Gladis Palmer Age/Sex: 54/F : 1970 Unit#: [id number] Attend Dr: Emelyn Cline CNM Re04/07/25 Status: DEP REF Location: HO.LNP Disch: ----- ------- SPEC : [id number] RECD: 04/07/25 STATUS: CHRISTIANO SHAH NUM: [id number] CLARA: 04/07/[address] [facility] [address]: Emelyn Cline CNM ENTERED: 04/07/25 SP TYPE: Pap Smr OTHR DR: Evelyn Morales MD ORDERED: Pap Smear Copies To: Emelyn Cline CNM [facility] [address] [place] [address] [place] [phone] Evelyn Morales MD [address] [address] ----- ------- Signed (signature on file) SEAN Ceja ([facility]) 04/13/25 1140 ----- ------- END OF REPORT us Generic External Data Provider LAB CYTOLOGY BOOMarcos RODRIGUEZ Final Result [facility] [address] [place] [phone] * BI Mammogram Screening Tomosynthesis Bilateral (03/14/2023 9:38 AM EDT) Anatomical Region Laterality Modality Breast Bilateral Mammography 03/14/2023 9:38 AM EDT Narrative 03/15/2023 2:09 PM EDT [facility] [address] [place] [address] Mammography Report Signed Patient: Gladis Palmer MR#: [id number] : 1970 Acct:[id number] Age/Sex: 52 / F ADM Date: 03/14/23 Loc: [facility] Attending Dr: Evelyn Morales MD Ordering Physician: Evelyn Morales MD Results: 1Negative Date of Service: 03/14/23 Follow Up: 1 Year From [facility] Mammogram Procedure(s): MM tomosynthesis screening BI Accession Number(s): [id number] cc: Evelyn Morales MD EXAMINATION: MM SCREENING [...] in OV> 03/15/23 1406 DD/ 0938 TD/TT: Operating Room Rn: AMARJIT Procedure Note Donotuseinterpreter, Image - 04/10/2023 [facility] [address] [place] [address] Mammography Report Signed Patient: Gladis PalmerMR#: [id number] : 1970Acct:[id number] Age/Sex: 52 / FADM Date: 03/14/23 Loc: PUJA Attending Dr: Evelyn Morales MD Ordering Physician: Evelyn Morales MDResults: 1Negative Date of Service: 03/14/23Follow Up: 1 Year From Orig ina Mammogram Procedure(s): MM tomosynthesis screening BI Accession Number(s): [id number] cc: Evelyn Morales MD EXAMINATION: MM SCREENING [...] in OV> 03/15/23 1406 DD/ 0938 TD/TT: Operating Room Rn: AMARJIT [facility] External Provider IMG BI PROCEDURES Edited Result - Final * Hm Colonoscopy (06/29/2020) Colonoscopy Normal Normal Historical Provider HEALTH MAINTENANCE Final Result * HEPATITIS C AB W/REFL TO HCV RNA, QN, PCR (05/11/2020 10:53 AM EDT) HEPATITIS C ANTIBODY NON-REACT JESSENIA NON-REACT JESSENIA [facility] INDEX 0.00 <1.00 [facility] Comment: HCV antibody was non-reactive. There is no laboratory evidence of HCV infection. In most cases, no further action is required. However, if recent HCV exposure is suspected, a test for HCV RNA (test code 87032) is suggested. For additional information please refer to http://[employer]/faq/FVP12e9 (This link is being provided for informational/ educational purposes only.) HEPATITIS C ANTIBODY NON-REACT JESSENIA NON-REACT JESSENIA [facility] INDEX 0.00 <1.00 [facility] Comment: HCV antibody was non-reactive. There is no laboratory evidence of HCV infection. In most cases, no further action is required. However, if recent HCV exposure is suspected, a test for HCV RNA (test code 67697) is suggested. For additional information please refer to http://[employer]/faq/DEQ64l7 (This link is being provided for informational/ educational purposes only.) 05/11/2020 10:5 3 AM EDT Evelyn Morales MD HISTORICAL/NON ORDERABLE LABS Fi nal Result [facility] [address] [place] [address], * HIV 1/2 ANTIGEN/ANTIBODY,FOURTH GENERATION W/RFL (05/11/2020 [...] purpose. For additional information please refer to http://[employer]/faq/FOW506 (This link is being provided for informational/ [...] purpose. For additional information please refer to http://[employer]/faq/GFV868 (This link is being provided for informational/ educational purposes only.) The performance of this assay has not been clinically validated in patients less than 2 years old. HIV-1/2 ANTIGEN AND ANTIBODIES, 4TH GENERATION W/ REFLEX NON-REACT JESSENIA NON-REACT JESSENIA [facility] Comment: HIV-1 antigen [...] purpose. For additional information please refer to http://[employer]/faq/KWZ628 (This link is being provided for informational/ educational purposes only.) The performance of this assay has not been clinically validated in patients less than 2 years old. 05/11/2020 10:5 3 AM EDT us Evelyn Morales MD LAB BLOOD ORDERABLES Final Resul t [facility] [address] from Last 3 Months or Most Recently Relevant to Health Maintenance Insurance N PARTIAL [facility] Care Teams Paper Coater Relationship Specialty Start Date End Date Evelyn Morales MD [address] [place] [address] [phone] PCP - General Family Medicine 07/13/20
--- OUTSIDE RECORDS SUMMARY | 2025-08-09 16:42 | XMS_ITS | Clinical Summary ---
Author Organization [facility] Address [address] [place] [address] Care Team Providers Care Reed Repairer Name Role Phone Evelyn Morales MD Primary Care Provider [phone] Surgical History Surgery Date Site/Laterality Comments OTHER SURGICAL HISTORY PROCEDURE: [place] ARTHRODESIS POSTERIOR INTERBODY 1 NTRSPC LUMBAR; COMMENT: [...] age to complete this topic Care Teams Reed Repairer Relationship Specialty Start Date End Date Evelyn Morales MD [address] [place] [phone] PCP - General Family Medicine 12/05/20
--- NOTE | 2025-08-17 09:09 | P.CONAN_ITS ---
Documented by User: Ilda Figueroa NP 08/17/25 09:09 HPI - Anesthesia Eval Consult details Narrative: 55yo F for D&C Hysteroscopy,possible polypectomy,possible myomectomy PMFSH Active Problems Active Problems: All Active Problems Abnormal ultrasound of endometrium (Acute) Encounter for well woman exam with routine gynecological exam (Acute) Fibroid (Acute) Sebaceous cyst of skin of left breast (Acute) Anxiety and depression (Acute) Restless legs syndrome (RLS) (Acute) Smoker (Acute) H/O colonoscopy (Acute) Past Medical History Medical History Fibroid Arthritis Back pain with right-sided sciatica Anxiety and depression Restless legs syndrome (RLS) Smoker Family History Family History Brother Hx of cancer of lung Mother Cervical cancer Family history of problems with anesthesia: No Surgical History Surgical History (Updated 08/19/25 @ 06:53 by Vaishali Vazquez RN) History of back surgery History of total right hip replacement History of breast lump/mass excision H/O colonoscopy History of removal of ovarian cyst History of Problems with Anesthesia: No Social History Social History Household Members: Significant Other Housing: House Alcohol intake: current Alcohol intake frequency: a few times a week Alcohol type: wine Patient Tobacco Use Status: Current everyday Tobacco user Tobacco use type: Cigarette Cigarettes Per Day: 10 Use of substances other than those prescribed or required for medical reasons: No Substance Use Type: Marijuana Are you DNR?: No Advance Directives: No Advance Directives Information Provided: Yes Patient : No : No Current occupational status: employed 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 [employer] Sexual orientation: Straight/Heterosexual Gender identity: Female Meds Allergies Allergy/AdvReac Type Severity Reaction Status Date / Time No Known Allergies Allergy Verified 08/05/25 14:51 Home Medications ?Medication ?Instructions ?Recorded ?Confirmed ?Last Taken ?Type No Known Home Meds 08/05/25 08/17/25 Un known History Assessment and Plan Assessment Anesthesia Assessment: Chart Reviewed Final Anesthetic Review Family History of Problems with Anesthesia: No History of Problems with Anesthesia: No Documented by User: Tayler Carballo MD 08/19/25 07:27 PMFSH Past Medical History Medical History Fibroid Arthritis Back pain with right-sided sciatica Anxiety and depression Restless legs syndrome (RLS) Smoker Family History Family History Brother Hx of cancer of lung Mother Cervical cancer Surgical History Surgical History (Updated 08/19/25 @ 06:53 by Vaishali Vazquez RN) History of back surgery History of total right hip replacement History of breast lump/mass excision H/O colonoscopy History of removal of ovarian cyst Social History Social History Household Members: Significant Other Housing: House Alcohol intake: current Alcohol intake frequency: a few times a week Alcohol type: wine Patient Tobacco Use Status: Current everyday Tobacco user Tobacco use type: Cigarette Cigarettes Per Day: 10 Use of substances other than those prescribed or required for medical reasons: No Substance Use Type: Marijuana Are you DNR?: No Advance Directives: No Advance Directives Information Provided: Yes Patient : No : No Current occupational status: employed 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 [employer] Sexual orientation: Straight/Heterosexual Gender identity: Female Meds Allergies Allergy/AdvReac Type Severity Reaction Status Date / Time No Known Allergies Allergy Verified 08/05/25 14:51 Home Medications ?Medication ?Instructions ?Recorded ?Confirmed ?Last Taken ?Type No Known Home Meds 08/05/25 08/17/25 Un known History Exam Airway Mallampati Class: III (top 4 teeth caps, missing one top left) TM Dist: >3cm Neck ROM: Full Heart: rrr Lungs: cta Assessment and Plan Assessment Anesthesia Assessment: Anesthesia Plan Discussed Final Anesthetic Review NPO: Yes ASA Class: II Final Preanesthetic Review: No Changes in Pt Med Stat, Meds/Allgs Chart Reviewed and Consent Obtained/Reviewed Patient Risk: Low Procedure Risk: Low Anesthetic Plan Anesthetic Plan: GA Disposition: Standard PACU
[2025-08-17 11:19] VITALS: BMI 26.1
[2025-08-19 06:53] VITALS: BMI 25.5
[2025-08-19 06:54] LABS: UPreg QC Valid YES
[2025-08-19 07:03] VITALS: BP 137/87; PULSE 81; RESP 16; TEMP 36; O2SAT 98
[2025-08-19] MEDS: Lactated Ringers 1,000 ML 100 ML IVCONT (07:12)
--- NOTE | 2025-08-19 07:31 | MHC.SHP ---
Pre-Procedural Eval Section A - 24 Hr Update-Section A only Date of Service: 08/19/25 The patient is an INPATIENT: No Changes since office visit: No Cold of Flu in the past 2 weeks, No New Medical Problems, No Changes in Medication and No Patient answered all questions The patient has been examined within 24 hours of the surgical procedure. The History & Physical has been completed within 30 days and I have reviewed it.: Yes Section B - Complete if H&P > 30 days Chief Complaint: Abnormal findings on diagnostic imaging Allergies: Allergies Allergy/AdvReac Type Severity Reaction Status Date / Time No Known Allergies Allergy Verified 08/05/25 14:51 Plan Diagnosis/Plan: Unchanged I have reviewed the history and physical and performed a pertinent physical examination on my patient. No changes have occurred unless specified. Time Spent With Patient Time: Total time managing care of this patient today ____ minutes.
--- NOTE | 2025-08-19 08:50 | P.BOP_ITS ---
Brief Operative Note Date of Service: 08/19/25 Pre-op diagnosis: Abnormal endometrium by ultrasound Post-op diagnosis: same (Endometrial polyp) Procedure: Hysteroscopy D&C, Polypectomy Surgeon: Brant Ying MD Anesthesia: GLMA Was an Spooling Supervisor used for this Procedure?: No Estimated blood loss (mL): 0 Pathology: other (Endometrial Scrapping. Polyp) Condition: stable Disposition: PACU
--- NOTE | 2025-08-19 08:50 | W.PM.OPN ---
Operative Note Operative Note Date of Service: 08/19/25 Narrative: Preop Diagnosis: Endometrial endometrium by US Operation: Diagnostic Hysteroscopy, Dilataion & Curettage and polypectomy Post Op Diagnosis: Endometrial Polyp QBL: Minimal Anesthesia: GLMA Surgeon: Brant Ying MD Milk Drying Machine Operator: None Complication: None Pathology: Endometrial Scrapings, Endometrial polyp Procedure: The patient was put in the dorsal lithotomy position, scrubbed, and draped in the usual manner. A sterile speculum was inserted in the patient's vagina. The anterior lip of the cervix was grasped with a single tooth tenaculum. The cervix was dilated up to 5 mm, then the scope was inserted in the patient's uterus. Inspection revealed endometrial polyp. The Myosure Reach device was used; it was introduced through the operative channel and polypectomy done with no complications. The scope was then taken out from the uterine cavity, sharp curettings was carried on with minimal to moderate amount of tissues retrieved. At the end of the procedure, all instruments were taken out of the patient uterine and vaginal cavity. The single tooth tenaculum was removed and homeostasis was assured using pressure,. The patient tolerated the procedure well and was transferred to the PACU in a stable condition.
[2025-08-19 08:51] VITALS: BP 147/88; PULSE 89; RESP 16; TEMP 36.4; O2SAT 96
[2025-08-19 08:55] VITALS: BP 144/86; PULSE 81; RESP 14; O2SAT 98
[2025-08-19 09:00] VITALS: BP 149/94; PULSE 85; RESP 14; O2SAT 96
[2025-08-19 09:05] VITALS: BP 155/94; PULSE 73; RESP 12; O2SAT 97
[2025-08-19 09:10] VITALS: BP 154/86; PULSE 73; RESP 13; TEMP 36.1; O2SAT 97
== END 2025-08-19 09:40 | disposition home or self-care (01) ==
PROVIDERS: PCP Family Medicine; Visit Provider Obstetrics & Gynecology
PROC: 0UDB8ZZ Extraction of Endometrium, Via Natural or Artificial Opening Endoscopic (ICD-10-PCS; CPT 58558; principal; 2025-08-19 08:30)
DX: N84.0 Polyp of corpus uteri (principal); D21.9 Benign neoplasm of connective and other soft tissue, unspecified; N92.5 Other specified irregular menstruation; N88.8 Other specified noninflammatory disorders of cervix uteri; M54.31 Sciatica, right side; F41.8 Other specified anxiety disorders; G25.81 Restless legs syndrome; Z96.641 Presence of right artificial hip joint; Z98.890 Other specified postprocedural states; F17.210 Nicotine dependence, cigarettes, uncomplicated
CPT/HCPCS: 58558; 81025; 88305; J1100; J1885; J2003; J2250; J2405; J2704; J3010

== ENCOUNTER → 2025-08-19 06:16 | Outpatient (BNV) | payer OTHER, SELFPAY | PROVIDERS: PCP Family Medicine; Visit Provider Obstetrics & Gynecology | DX: R93.5 Abnormal findings on diagnostic imaging of other abdominal regions, including retroperitoneum (principal) | CPT/HCPCS: 58558 ==

== ENCOUNTER 2025-09-07 09:00 | Outpatient (AMB) | payer OTHER, SELFPAY ==
--- NOTE | 2025-09-07 09:00 | MHC.OFFVIS ---
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 The pathology showed the following: A. Endometrial polyp, resection: Fragments of benign endometrial polyp; no atypia or carcinoma. B. Endometrium, curettage: Strips of benign atrophic endometrium and scant benign endocervical glandular and squamous epithelium; no atypia or carcinoma PFSH Medical History Fibroid Arthritis Back pain with right-sided sciatica Anxiety and depression Restless legs syndrome (RLS) Smoker Surgical History (Updated 08/19/25 @ 06:53 by Vaishali Vazquez RN) History of back surgery History of total right hip replacement History of breast lump/mass excision H/O colonoscopy History of removal of ovarian cyst Family History Brother Hx of cancer of lung Mother Cervical cancer Social History Household Members: Significant Other Housing: House Alcohol intake: current Alcohol intake frequency: a few times a week Alcohol type: wine Patient Tobacco Use Status: Current everyday Tobacco user Tobacco use type: Cigarette Cigarettes Per Day: 10 Substance Use Type: Marijuana Current occupational status: employed 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 [employer] Sexual orientation: Straight/Heterosexual Gender identity: Female Female Reproductive History Menstrual Age of Menarche: 14 Review of Systems Const All systems reviewed & are unremarkable except as noted in HPI and below Reports as per HPI and Reports no additional complaints GI Reports no additional complaints Reports no additional complaints Telehealth Telehealth Telehealth Platform: [facility] Location of provider rendering services: practice address Location of patient: address on file Patient Identification confirmed using: Name, : Yes Telehealth method: video Patient verbally consented to treatment: Yes Patient verbally consented to billing insurance company: Yes Patient informed of any privacy concerns related to visit: Yes Minutes spent on Phone/Video with Pt.: 3 Assessment & Plan Assessment & Plan (1) Abnormal ultrasound of endometrium: Code(s): R93.5 - Abnormal findings on diagnostic imaging of other abdominal regions, including retroperitoneum Category: Medical Plan: Discussed with the patient the intraoperative finding showing endometrial polyp, the pathology results, it sensitivity, specificity, false-positive and false-negative rates. Instructions given the patient to call in case of any vaginal bleeding will proceed with further management. All questions answered, the patient verbalized understanding I spent a total of 20 minutes reviewing the chart, talking to the patient via video and documenting in the medical record. Coding Level of Care Code Tele Est Pt Level 3 (41301) Diagnoses Abnormal ultrasound of endometrium R93.5
== END 2025-09-07 09:59 | disposition home or self-care (01) ==
LOC: HO.HWS 09:00
PROVIDERS: PCP Family Medicine; Visit Provider Obstetrics & Gynecology
DX: R93.5 Abnormal findings on diagnostic imaging of other abdominal regions, including retroperitoneum (principal)
CPT/HCPCS: 98005

== ENCOUNTER 2025-09-23 13:27 | Emergency (ER) | payer OTHER, SELFPAY ==
[2025-09-23 13:59] VITALS: BP 167/106; PULSE 106; RESP 18; TEMP 36.6; O2SAT 100; BMI 25.5
--- NOTE | 2025-09-23 14:03 | ED_ITS ---
HPI - General Adult General Chief complaint: Back Pain/Injury Stated complaint: R/O Infection R Hip Lower Back Pain No Injury Time Seen by Provider: 09/23/25 17:08 Source: patient Mode of arrival: ambulatory Limitations: no limitations History of Present Illness ED Provider: Daria Cast PA-C HPI narrative: Patient is a 55 year old female with a history of hip replacement and lumbar spine fusion presenting to the emergency department today with right sided low back pain. Patient states that she has had right sided low back pain that is not improving over the last few days. Patient states that she has always felt a right sided lump in her low back but she is concerned that may be causing the back pain. Patient states that she spoke to an outside provider who recommended getting a CBC, ESR, and CRP for blood testing. Patient denies any other complaints at this time. Related Data Previous Rx's ?Medication ?Instructions ?Recorded cyclobenzaprine 5 mg tablet 5 mg PO TID PRN muscle spa sm 7 09/23/25 days #21 tabs prednisone 20 mg tablet 40 mg (2 x 20 mg) PO DAILY C OPD 09/23/25 exacerbation 5 days #10 tabs Allergies Allergy/AdvReac Type Severity Reaction Status Date / Time No Known Allergies Allergy Verified 09/23/25 14:02 Review of Systems 2 Constitutional: Constitutional: Reports as per HPI Eyes: Eyes: Reports as per HPI ENT: Reports as per HPI Cardiovascular: Cardiovascular: Reports as per HPI Respiratory: Respiratory: Reports as per HPI Gastrointestinal: Gastrointestinal: Reports as per HPI Genitourinary: Genitourinary: Reports as per HPI Musculoskeletal: Musculoskeletal: Reports as per HPI Integumentary/Breasts: Skin/Breast: Reports as per HPI Neurologic: Reports as per HPI Psychiatric: Psychiatric: Reports as per HPI Endocrine: Endocrine: Reports as per HPI Hematologic/Lymphatic: Hematologic/Lymphatic: Reports as per HPI Allergic/Immunologic: Allergic/Immunologic: Reports as per HPI PMF Past Medical History Attestation statement: The following information was validated with the patient. Source: old records reviewed and nursing notes reviewed Medical History Fibroid Arthritis Back pain with right-sided sciatica Anxiety and depression Restless legs syndrome (RLS) Smoker Surgical History History of back surgery History of total right hip replacement History of breast lump/mass excision H/O colonoscopy History of removal of ovarian cyst Family History Family History Brother Hx of cancer of lung Mother Cervical cancer Social History Social History Household Members: Significant Other Housing: House Alcohol intake: current Alcohol intake frequency: a few times a week Alcohol type: wine Patient Tobacco Use Status: Current everyday Tobacco user Tobacco use type: Cigarette Cigarettes Per Day: 10 Substance Use Type: Marijuana Advance Directives: No Advance Directives Information Provided: Yes Current occupational status: employed 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 [employer] Sexual orientation: Straight/Heterosexual Gender identity: Female Physical Exam ED Vital Signs: Vital Signs - 24 hr 09/23/25 13:59 09/23/25 17:20 Temperature 97.9 F 97.9 F Pulse Rate 106 H 106 H Respiratory Rate 18 18 Blood Pressure 167/106 H 167/106 H Pulse Oximetry 100 100 Oxygen Delivery Method Room Air Room Air BMI result Body Mass Index 25.5 Const General: cooperative, no acute distress, alert and awake Nutritional Appearance: well nourished Orientation/consciousness: patient oriented x3 HENMT Head: Yes normal to inspection and Yes atraumatic Ears: hearing grossly normal bilaterally and external ears normal General nose exam: Normal external nose present, no nasal discharge noted and no epistaxis Face and sinus: Yes normal facial exam, No abrasion and No laceration Mouth: Normal oral and palatal mucosa present, no drooling and no muffled voice Eyes General: appearance normal, both eyes and all related structures Periorbital: periorbital findings normal Eyelids: Yes eyelids normal Conjunctivae: conjunctivae normal Pupils: Equal, round and reactive pupils present EOM: EOMs intact bilaterally Neck Neck: Yes normal visual inspection and Yes full ROM Resp Effort & Inspection: normal respiratory effort and able to speak in complete sentences Back/Spine/Pelvis Other: Right sided low back palpated - no obvious mass appreciated on my examination Neuro General: patient oriented x3, moves all extremities and CN's II-XI intact bilaterally Cranial nerves: Yes Equal, round and reactive pupils present Cognition (Neuro): normal cognition Extrem General: Yes normal to inspection, Yes full ROM and Yes capillary refill normal Psych Appearance: grossly normal Mental Status: mental status grossly normal Affect: normal affect Attitude: cooperative Thought process: Normal thought process present Thought content: Normal thought content present Insight: Good insight present (Psych) Course Course Course Narrative: Rapid medical examination performed in triage by Daria Cast PA-C: Patient is a 55 year old assigned female at presenting to the emergency department with low back pain and feeling a low back lump. Detailed physical exam and review of systems are deferred to the agricultural science professor. Labs ordered. Patient placed back in the waiting room pending room availability and results. Medical Decision Making Medical Decision Making MDM Narrative: Patient is a 55 year old female with a history of hip replacement and lumbar spine fusion presenting to the emergency department today with right sided low back pain. Patient's physical exam was as noted in the physical exam portion of this note. Patient's blood work was unremarkable. Patient's clinical presentation is most consistent with lumbar radiculopathy vs. muscle spasm. I explained my physical exam findings as well as all test results to the patient. I answered all questions asked by the patient. I stressed the importance of the patient taking her medication as directed (either prescribed or as the over the counter packaging recommends). I stressed the importance of the patient following up with her primary care provider and her net application support specialist. I stressed the importance of the patient returning to the emergency department immediately if her symptoms were to worsen or if she were to develop any dizziness, shortness of breath, difficulty breathing, chest pain, blurry vision, loss of vision, nausea, vomiting, abdominal pain, fever, chills, back pain, or any other complaints. Patient verbalized agreement and understanding with this treatment plan and discharge. Differential Diagnosis Differential Diagnoses: The differential diagnosis associated with the presentation includes Low back pain Lumbar radiculopathy Sciatica Muscle spasm Admission/Observation Consideration of admission/observation: Escalation of care including admission/observation considered Patient would have been admitted to the hospital had her work up had any findings where hospital admission was appropriate and her clinical presentation warranted hospital admission. Lab Data [facility] Lab Attestation statement: I reviewed the patient's lab results. My interpretation of these results are in the MDM Rationale portion of this note. 09/23/25 14:54 09/23/25 14:54 Labs: Lab Results 09/23/25 Range/Units 14:54 WBC 7.2 (4.8-10.8) X10*3/uL RBC 5.06 (4.20-5.50) X10*6/uL Hgb 14.9 (12.0-16.0) g/dl Hct 44.5 (37.0-47.0) % MCV 87.9 (80.0-98.0) fL MCH 29.4 (27.0-33.0) pg MCHC 33.5 (31.0-35.0) g/dl RDW 13.7 (11.0-16.0) % Plt Count 272 (160-400) X10*3/uL MPV 9.8 (9.4-12.3) fL Immature Gran % (Auto) 0.3 (0.0-0.4) % Neut % (Auto) 60.1 (45-73) % Lymph % (Auto) 28.0 (20-40) % Blount % (Auto) 6.4 (2-11) % Eos % (Auto) 4.4 H (0-4) % Baso % (Auto) 0.8 (0-2) % Lymph # (Auto) 2.0 (1.2-4.9) X10*3/uL Blount # (Auto) 0.5 (0.1-1.2) X10*3/uL Eos # (Auto) 0.3 (0.0-0.4) X10*3/uL Baso # (Auto) 0.1 (0.0-0.2) X10*3/uL Abs Immat Gran (auto) 0.02 (0.00-0.03) X10*3/uL Absolute Neuts (auto) 4.4 (2.0-8.3) x10*3/uL Absolute Nucleated RBC 0.000 (0.0-0.012) X10*3/uL Nucleated RBC % (auto) 0.0 (0.0-0.2) /100WBC ESR 11 (1-30) MM/HR Sodium 141 (135-145) mmol/L Potassium 3.8 (3.3-5.1) mmol/L Chloride 106 (96-108) mmol/L Carbon Dioxide 26 (22-29) mmol/L Anion Gap 13 (12-20) BUN 16 (9-16) mg/dL Creatinine 0.59 (0.5-1.4) mg/dL Estim Creat Clear Calc 103.5 Estimated GFR > 60 Random Glucose 92 (60-115) mg/dL Calcium 9.7 (8.4-10.2) mg/dL Total Bilirubin 0.3 (0.0-1.0) mg/dL AST 27 (5-31) U/L ALT 37 H (0-31) U/L Alkaline Phosphatase 65 (39-117) U/L C-Reactive Protein 0.19 (< or = 0.50) mg/dL Total Protein 7.6 (6.5-8.0) g/dL Albumin 5.1 H (3.5-5.0) g/dL Tests considered The following testing was considered but not selected: I considered obtaining a CT scan of the lumbar spine or an x-ray however, the patient's current clinical presentation and work up does not warrant it at this time. I discussed this with the patient who verbalized understanding and agreement. Prescription Management I considered prescription management with: Pain Medication (patient prescribed pain medication) Discharge Plan Discharge Clinical Impression: Low back pain Patient Disposition: Home, Self-Care Instructions: Acute Low Back Pain (ED), Muscle Spasm (ED) Additional Instructions: Your lab work today was reassuring there is no EMERGENT process going on at this time. You should follow up with your net application support specialist. IF you are prescribed home medications and/or you are taking over the counter medications at home - it is very important you continue to do so as prescribed / directed unless told otherwise by a healthcare provider. Follow up with your primary care provider. Do your best to stay well hydrated and rest. Return to the emergency department immediately if your symptoms worsen or if you develop any numbness, tingling, dizziness, shortness of breath, difficulty breathing, chest pain, blurry vision, loss of vision, nausea, vomiting, abdominal pain, fever, chills, back pain, or any other complaints. L If you do not have a primary care provider - call any of the below numbers to establish and follow up with a primary care provider. [facility] Primary Care ([place]) [phone] [place] [address], [address] [facility] Primary Care ([address] [place]) [phone] [place] [address], [address] [facility], [address] [facility] Primary Care ([address] [place]) [phone] [place] [address], [address] [facility], [address] [facility] Primary Care ([place]) [phone] [place] [address], [address] [place], [address] [facility] Family Medicine [phone] [place] [address], [address] Please see the information below about our Patient Portal. If you are not yet enrolled in the [facility] Patient Portal, you will receive an enrollment email invitation following your visit to any [facility] setting. You may also self-enroll in the Patient Portal by visiting our website: [email or web address] The following information is required to access the Patient Portal: - Your [facility] Medical Record Number - Your personal home email address (must match what is in your electronic medical record, Registration staff can assist with this) - Name - Date of Capabilities of the Patient Portal: - Message some providers - View upcoming appointments - Access your health summary, medical history, and visit history - View current conditions and allergies - View procedure and lab results - View your medications, including guidelines, side effects, and precautions - Complete pre-appointment questionnaires requested by your provider - Ready summary reports of your office visits and procedures To access the Patient Portal Mobile Naty, follow these directions: - Search ADOP in the Naty Store or CELtrak Store - Download the Naty - Search for [facility] - Enter your login/password Prescriptions: New cyclobenzaprine 5 mg tablet 5 mg PO TID PRN (Reason: muscle spasm) 7 Days Qty: 21 0RF prednisone 20 mg tablet 40 mg PO DAILY 5 Days Qty: 10 0RF Referrals: Evelyn Morales MD [Primary Care Provider, Internal Medicine] Interventions: ED Discharge Assessment Last Done: 09/23/25 17:20 Discharge Date/Time: 09/23/25 17:21 Print Language: Welsh
[2025-09-23 15:00] LABS: MANUAL DIFF FLAG NO
[2025-09-23 15:07] LABS: Hematocrit 44.5 % (37.0-47.0); Hemoglobin 14.9 g/dl (12.0-16.0); Imm Gran Abs Auto 0.02 X10*3/uL (0.00-0.03); Imm Gran Pct Auto 0.3 % (0.0-0.4); Lymphocytes Absolute Auto 2.0 X10*3/uL (1.2-4.9); Mean Corpuscular HGB Conc 33.5 g/dl (31.0-35.0); Mean Corpuscular Hemoglobin 29.4 pg (27.0-33.0); Mean Corpuscular Volume 87.9 fL (80.0-98.0); NRBC Abs Auto 0.000 X10*3/uL (0.0-0.012); NRBC Pct Auto 0.0 /100WBC (0.0-0.2); Platelet Count 272 X10*3/uL (160-400); Red Blood Count 5.06 X10*6/uL (4.20-5.50); White Blood Count 7.2 X10*3/uL (4.8-10.8)
[2025-09-23 15:16] LABS: Alanine Aminotransferase 37 U/L (0-31); Albumin Level 5.1 g/dL (3.5-5.0); Alkaline Phosphatase 65 U/L (39-117); Anion Gap 13 (12-20); Aspartate Amino Transferase 27 U/L (5-31); Blood Urea Nitrogen 16 mg/dL (9-16); Calcium 9.7 mg/dL (8.4-10.2); Carbon Dioxide 26 mmol/L (22-29); Chloride 106 mmol/L (96-108); Creatinine Clr Calc Pharmacy 103.5; Estimated Glomerular Filt Rate > 60; Potassium 3.8 mmol/L (3.3-5.1); Sodium 141 mmol/L (135-145); Total Protein 7.6 g/dL (6.5-8.0)
[2025-09-23 17:20] VITALS: BP 167/106; PULSE 106; RESP 18; TEMP 36.6; O2SAT 100
--- OUTSIDE RECORDS SUMMARY | 2025-09-23 20:45 | XMS_ITS | Encounter Summary ---
Author Organization [employer] Address [address] [place] [id number] Care Team Providers Care Senior Web Architect Name Role Phone Evelyn Morales MD Primary Care Provider [phone] Reason for Visit * Reason Onset Date Comments Referral 04/18/2025 Encounter Details Date Type Department Care Team ([facility] st Contact Info) Description 04/18/2025 Telephone [facility] [address] [place] [address] Evelyn Morales MD [address] [place] [address] Referral Social History Tobacco Use Types Packs/Day [...] pt requesting a referral to gastro at [facility]. Pt stated she was scehduled for a [...] documented as of this encounter Care Teams Senior Web Architect Relationship Specialty Start Date End Date Evelyn Morales MD [address] [place] [id number] PCP - General Family Medicine 07/13/20 documented as of this encounter
--- OUTSIDE RECORDS SUMMARY | 2025-09-23 20:45 | XMS_ITS | Clinical Summary ---
Author Organization [facility] Address [address] [place] [address] Care Team Providers Care Hotel Housekeeper Name Role Phone Evelyn Morales MD Primary Care Provider [phone] Surgical History Surgery Date Site/Laterality Comments OTHER SURGICAL HISTORY PROCEDURE: [place] ARTHRODESIS POSTERIOR INTERBODY 1 NTRSPC LUMBAR; COMMENT: L4-5 decompression PLIF 01/16/21 Medical History Medical History Date Comments Anxiety state DX:Anxiety state Depressive disorder DX:Depressiv e disorder Social History Tobacco Use Types Packs/Day Years Used Date Smoking Tobacco: Former Cigarettes 0 Q uit: 12/11/2020 Smokeless Tobacco: Never Comments [...] Breast Cancer Screening 03/14/2025 03/14/2023 COVID-19 Vaccine (1 - 2024-2 6 season) 2025 Influenza Vaccine (#1) 2025 2, [...] age to complete this topic Care Teams Hotel Housekeeper Relationship Specialty Start Date End Date Evelyn Morales MD [address] [place] [phone] PCP - General Family Medicine 12/05/20
--- OUTSIDE RECORDS SUMMARY | 2025-09-23 20:45 | XMS_ITS | Encounter Summary ---
Author Organization [employer] Address [address] [place] [address] [place] [address] Care Team Providers Care Silk Screen Printer Helper Name Role Phone Evelyn Morales MD Primary Care Provider [phone] Encounter Details Date Type Department Care Team ([facility] st Contact Info) Description 04/14/2024 Orders Only [facility] MED & PEDS [address] [place], [place] [id number] Afshan Cleveland, СЕРГЕЙ [address] [place] [address] Osteoarthritis of right hip, unspecified osteoarthritis type [...] Primary documented in this encounter Care Teams Silk Screen Printer Helper Relationship Specialty Start Date End Date Evelyn Morales MD [address] [place] [address] PCP - General Family Medicine 07/13/20 documented as of this encounter
--- OUTSIDE RECORDS SUMMARY | 2025-09-23 20:45 | XMS_ITS | Clinical Summary ---
Author Organization [employer] Address [address] [place] [address] [address] [place] [address] Care Team Providers Care Odd Bundle Worker Name Role Phone Evelyn Morales MD Primary Care Provider [phone] Allergies No known active allergies Medications cyclobenzaprine [...] fixation by Dr. Calix Currently following with [facility] provider and is receiving [...] fixation by Dr. Calix Currently following with [facility] provider and is receiving [...] fixation by Dr. Calix Currently following with [facility] provider and is receiving [...] fixation by Dr. Calix Currently following with [facility] provider and is receiving [...] Encounters Date Type Department Care Team Description 09/23/2025 Orders Only GENERIC EXTERNAL DATA DEPARTMENT Provider, Generic External Data 08/19/2025 Orders Only GENERIC EXTERNAL DATA DEPARTMENT Provider, [...] 03/14/2023, 02/25/2022, 05/24/2020 COVID-19 Vaccine ( - 2024-2 6 season) 2025 Influenza Vaccine [...] Procedure Name Priority Date/Time Associated Diagnosis Comments C-REACTIVE PROTEIN Routine 09/23/2025 2: 54 PM EST COMPREHENSIVE METABOLIC PANEL Routine 09/23/2025 2:54 PM EST SED RATE BY MODIFIED WESTERGREN Routine 09/23/2025 2:54 PM EST CBC WITH AUTO DIFFERENTIAL Routine 09/23/2025 2:54 PM EST HEMATOXYLIN AND EOSIN STAIN Routine 08/19/2025 8:38 AM EST HCG, QL, URINE Routine 08/19/2025 6:46 AM EST HPV DNA, LOW/HIGH RISK Routine 8:54 AM EDT PAP SMEAR Routine 04/07/2025 [...] Recently Relevant to Health Maintenance Results * (ABNORMAL) CBC auto differential (09/23/2025 2:54 PM EST) White Blood Count 7.2 4.8 - 10.8 X10*3/uL [facility] Red Blood Count 5.06 4.20 - 5.50 X10*6/uL [facility] Hemoglobin 14.9 12.0 - 16.0 g/dl [facility] Hematocrit 44.5 37.0 - 47.0 % [facility] Mean Corpuscular Volume 87.9 80.0 - 98.0 fL [facility] Mean Corpuscular Hemoglobin 29.4 27.0 - 33.0 pg [facility] Mean Corpuscular HGB Conc 33.5 31.0 - 35.0 g/dl [facility] Red Cell Distribution Width 13.7 11.0 - 16.0 % [facility] Platelet Count 272 160 - 400 X10*3/uL [facility] Mean Platelet Volume 9.8 9.4 - 12.3 fL [facility] Neutrophils Percent Auto 60.1 45 - 73 % [facility] Imm Gran Pct Auto 0.3 0.0 - 0.4 % [facility] Lymphocytes Percent Auto 28.0 20 - 40 % [facility] Monocytes Percent Auto 6.4 2 - 11 % [facility] Eosinophils Percent Auto 4.4(H) 0 - 4 % [facility] Basophils Percent Auto 0.8 0 - 2 % [facility] NRBC Pct Auto 0.0 0.0 - 0.2 /100WBC [facility] Neutrophils Absolute Auto 4.4 2.0 - 8.3 x10*3/uL [facility] Imm Gran Abs Auto 0.02 0.00 - 0.03 X10*3/uL [facility] Lymphocytes Absolute Auto 2.0 1.2 - 4.9 X10*3/uL [facility] Monocytes Absolute Auto 0.5 0.1 - 1.2 X10*3/uL [facility] Eosinophils Absolute Auto 0.3 0.0 - 0.4 X10*3/uL [facility] Basophils Absolute Auto 0.1 0.0 - 0.2 X10*3/uL [facility] NRBC Abs Auto 0.000 0.0 - 0.012 X10*3/uL [facility] 09/23/2025 2:54 PM EST 09/23/2025 2:58 PM EST Generic External Data Provider LAB BLOOD ORDERAB LES Final Result Performing Organization Address [facility] Co de Phone Number [facility] [address] [place] [phone] * Sed Rate by Modified Westergren (09/23/2025 2:54 PM EST) Pathologist [facility] Erythrocyte Sedimentation Rate 11 1 - 30 MM/HR [facility] Comment:Patients with polycy themia and many hemoglobin abnormalitiesmay have depressed sed rates whereas patients with anemiamay have elevated sed rates. 09/23/2025 2:54 PM EST 09/23/2025 2:58 PM EST us Generic External Data Provider LAB BLOOD ORDERAB LES Final Result Performing Organization Address [facility] Co de Phone Number [facility] [address] [place] [phone] * C-reactive Protein (09/23/2025 2:54 PM EST) C Reactive Protein 0.19 < or = 0.50 mg/dL [facility] 09/23/2025 2:54 PM EST 09/23/2025 2:58 PM EST us Generic External Data Provider LAB BLOOD ORDERAB LES Final Result [facility] [address] [place] [phone] [phone] * (ABNORMAL) Comprehensive Metabolic Panel (09/23/2025 2:54 PM EST) Sodium 141 135 - 145 mmol/L [facility] Potassium 3.8 3.3 - 5.1 mmol/L [facility] Chloride 106 96 - 108 mmol/L [facility] Carbon Dioxide 26 22 - 29 mmol/L [facility] Anion Gap 13 12 - 20 [facility] Urea Nitrogen (BUN) 16 9 - 16 mg/dL [facility] Creatinine, Serum 0.59 0.5 - 1.4 mg/dL [facility] Creatinine Clr Calc Pharmacy 103.5 [facility] Comment:Provided height and weight: 170.18 cm,73.9 kg.eGFR (calculated from the MDRD study equation) and eCrCl(calculated from the Cockcroft-Gault equation) are based ondifferent parameters and may not yield comparable results.If eCrCl result is absurd, please check patient'sheight/weight. Estimated Glomerular Filt Rate >60 [facility] Comment:Chronic Kidney Disea se: Estimated GFR < 60 mL/min/1.60o6Micmca Kidney Disease: Estimated GFR < 15 mL/min/1.73m2 Glucose 92 60 - 115 mg/dL [facility] Calcium 9.7 8.4 - 10.2 mg/dL [facility] Bilirubin, Total 0.3 0.0 - 1.0 mg/dL [facility] Aspartate Amino Transferase 27 5 - 31 U/L [facility] Alanine Aminotransferase 37(H) 0 - 31 U/L [facility] Total Protein 7.6 6.5 - 8.0 g/dL [facility] Albumin Level 5.1(H) 3.5 - 5.0 g/dL [facility] Alkaline Phosphatase 65 39 - 117 U/L [facility] 09/23/2025 2:54 PM EST 09/23/2025 2:58 PM EST us Generic External Data Provider LAB BLOOD ORDERAB LES Final Result Performing Organization Address City/State/[facility] Co de Phone Number [facility] [address] [place] [phone] * Hematoxylin and Eosin Stain (08/19/2025 8:38 AM EST) 08/19/2025 8:38 AM EST 08/19/2025 10:36 AM EST Narrative [facility] - 08/22/2025 2:45 PM EST ----- ------- Name: Gladis Palmer Age/Sex: 55/F [facility] 1970 [id number] [id number] Attend Dr: Brant Ying MD Re08/19/25 Status: [facility] Location: [facility] Disch: ----- ------- SPEC : [id number] RECD: 08/19/256 STATUS: CHRISTIANO SHAH NUM: [id number] CLARA: 08/19/25 [facility] [address]: Brant Ying MD ENTERED: 08/19/25-1108 SP TYPE: Surgical OTHR DR: Evelyn Morales MD ORDERED: HE Stain/4, Gross Micro L4/2 Diagnosis A. Endometrial polyp, resection: Fragments of benign endometrial polyp; no atypia or carcinoma. B. Endometrium, curettage: Strips of benign atrophic endometrium and scant benign endocervical glandular and squamous epithelium; no atypia or carcinoma. Clinical History Pre-Op Dx: Abnormal findings on diagnostic imaging Post-Op Dx: Endometrial polyp Microscopic Description Microscopic sections reviewed. Material Received A. Endometrial polyp B. [facility] Gross Description A. Received in formalin in a mesh bag is a 1.5 x 1.0 x 0.3 cm aggregate of mott-red soft tissue fragments, totally submitted in A1. B. Received in formalin is a 1.0 x 0.4 x 0.2 cm aggregate of mott-red soft tissue, totally submitted in B1. ([facility]) IHC S/NG Disclaimer NOTE: Unless otherwise stated, all tissue is formalin-fixed and paraffin-embedded. Some or all of the immunohistochemical tests reported herein may have been developed and their performance characteristics determined by [facility]. They have not been cleared or approved by the U.S. Food and Drug Administration (FDA). However, the FDA has determined that such clearance or approval is not necessary. This laboratory is certified under the Clinical Laboratory Improvement Amendments of 1988 (CLIA) as qualified to perform high complexity clinical laboratory testing. CONTINUED ON NEXT PAGE ----- ------- Name: Gladis Palmer Age/Sex: 55/F : 1970 [id number]#: [id number] Attend Dr: Brant Ying MD Re08/19/25 Status: [facility] Location: [facility] Disch: ----- ------- SPEC : [id number] RECD: 08/19/25 STATUS: CHRISTIANO SHAH NUM: [id number] CLARA: 08/19/25 [facility] [address]: Brant Ying MD ENTERED: 08/19/25 SP TYPE: Surgical OTHR DR: Evelyn Morales MD ORDERED: HE Stain/4, Gross Micro L4/2 Copies To: Evelyn Morales MD [address] [phone] Brant Ying MD [facility] [address] [place] [address] Drive [address] [place] [address] ----- ------- Signed (signature on file) Catherine Torrez 08/22/25 1445 ----- ------- END OF REPORT us Generic External Data Provider LAB BLOOD ORDERAB LES Final Result [facility] [address] [place], [place] [phone] * HCG, Qualitative, Urine (08/19/2025 6:46 AM EST) Urine NEGATIVE NEGATIVE [facility] Comment:This test was develo ped to detect early . Falsenegative results may occur after the 5th - 7th week ofpregnancy when using this test method. If clinicallyindicated, consider a serum hCG. 08/19/2025 6:46 AM EST 08/19/2025 6:51 AM EST us Generic External Data Provider LAB URINE ORDERAB LES Final Result Performing Organization Address [facility]/ZIP Co de Phone Number [facility] [address] [place] [phone] * HPV DNA, Low/High Risk (04/07/2025 8:54 AM EDT) HPV High Risk Negative Negative [facility] HPV Genotype 16 Negative Negative [facility] HPV Genotype 18 Negative Negative [facility] Comment:HPV testing performe d at [facility] (CLIA#[id number]), [address] [place] [address].Testing for HPV was performed using the Nathanael [...] ORDERAB LES Final Result Performing Organization Address City/[facility]/ZIP Co de Phone Number [facility] [address] [place] [phone] * Pap Smear (04/07/2025 8:54 AM EDT) 04/07/2025 8:54 AM EDT 04/07/2025 10:50 AM EDT [facility] - 04/13/2025 11:40 AM EDT ----- ------- Name: Gladis Palmer Age/Sex: 54/F : 1970 Unit#: [id number] Attend Dr: Emelyn Cline CNM Re04/07/25 Status: DEP REF Location: HO.LNP Disch: ----- ------- SPEC : [id number] RECD: 04/07/25 STATUS: CHRISTIANO SHAH NUM: [id number] CLARA: 04/07/2554 [facility] DR: Emelyn Cline CNM ENTERED: 04/07/25 SP [...] and HPV testing will be performed at [facility] (CLIA #[id number]), [address] [place] [address]. Testing for HPV was performed using the [...] detected. All professional services are performed by [facility] ([address] [place], [place] [id number]; ; CLIA #[id number]). The PAP Test is a screening procedure with the inherent possibility of both false negative and false positive results. Results should be interpreted in the context of historic and current clinical findings. Reliability of the PAP Test is enhanced by performing the test on a regular repetitive basis. CONTINUED ON NEXT PAGE ----- ------- Name: Gladsi Palmer Age/Sex: 54/F : 1970 Unit#: [id number] Attend Dr: Emelyn Cline CNM Re04/07/25 Status: DEP REF Location: [facility] Disch: ----- ------- SPEC : [id number] RECD: 04/07/25 STATUS: CHRISTIANO SHAH NUM: [id number] CLARA: 04/07/25 [facility] [address]: Emelyn Cline CNM ENTERED: 04/07/25 SP TYPE: Pap Smr OTHR DR: Evelyn Morales MD ORDERED: Pap Smear Copies To: Emelyn Cline CNM [facility] [address] [place] [address] Evelyn Morales MD [facility] [address] [place], [place] [phone] ----- ------- Signed (signature on file) SEAN Ceja ([facility]) 04/13/25 1140 ----- ------- END OF REPORT us Generic External Data Provider LAB CYTOLOGY CLAUDIA RODRIGUEZ Final Result [facility] [address] [place] [phone] * BI Mammogram Screening Tomosynthesis Bilateral (03/14/2023 9:38 AM EDT) Anatomical Region Laterality Modality Breast Bilateral Mammography 03/14/2023 9:38 AM EDT Narrative 03/15/2023 2:09 PM EDT [facility] [address] [place], [place] [address] Mammography Report Signed Patient: Gladis Palmer MR#: [id number] : 1970 Acct:[id number] Age/Sex: 52 / F ADM Date: 03/14/23 Loc: HO.MAMMO Attending Dr: Evelyn Morales MD Ordering Physician: Evelyn Morales MD Results: 1Negative Date of Service: 03/14/23 Follow Up: 1 Year From Orig inal Mammogram Procedure(s): MM tomosynthesis screening BI Accession Number(s): [id number] cc: Evelyn Morales MD EXAMINATION: MM SCREENING [...] in OV> 03/15/23 1406 DD/ 0938 TD/TT: Adoption Social Worker: OCASIO Procedure Note Donotuseinterpreter, Image - 04/10/2023 [facility] [address] [place], [place] [address] Mammography Report Signed Patient: Gladis PalmerMR#: [id number] : 1970Acct:[id number] Age/Sex: 52 / FADM Date: 03/14/23 Loc: HO.MAMMO Attending Dr: Evelyn Morales MD Ordering Physician: Evelyn Morales MDResults: 1Negative Date of Service: 03/14/23Follow Up: 1 Year From Orig inal Mammogram Procedure(s): MM tomosynthesis screening BI Accession Number(s): [id number] cc: Evelyn Morales MD EXAMINATION: MM SCREENING [...] in OV> 03/15/23 1406 DD/ 0938 TD/TT: Adoption Social Worker: OCASIO [facility] External Provider IMG BI PROCEDURES Edited Result - Final * Hm Colonoscopy (06/29/2020) Pathologist [facility] Colonoscopy Normal Normal Historical Provider HEALTH MAINTENANCE Final Result * HEPATITIS C AB W/REFL TO HCV RNA, QN, PCR (05/11/2020 10:53 AM EDT) Pathologist [facility] HEPATITIS C ANTIBODY NON-REACT JESSENIA NON-REACT JESSENIA [facility] INDEX 0.00 <1.00 [facility] Comment: HCV antibody was non-reactive. There is no laboratory evidence of HCV infection. In most cases, no further action is required. However, if recent HCV exposure is suspected, a test for HCV RNA (test code 92279) is suggested. For additional information please refer to http://[employer]/faq/WVP57l9 (This link is being provided for informational/ educational purposes only.) HEPATITIS C ANTIBODY NON-REACT JESSENIA NON-REACT JESSENIA [facility] INDEX 0.00 <1.00 [facility] Comment: HCV antibody was non-reactive. There is no laboratory evidence of HCV infection. In most cases, no further action is required. However, if recent HCV exposure is suspected, a test for HCV RNA (test code 58309) is suggested. For additional information please refer to http://[employer]/faq/QMW66v2 (This link is being provided for informational/ educational purposes only.) 05/11/2020 10:5 3 AM EDT us Evelyn Morales MD HISTORICAL/NON ORDERABLE LABS Fi nal Result [facility] [address] * HIV 1/2 ANTIGEN/ANTIBODY,FOURTH GENERATION W/RFL (05/11/2020 10:53 AM EDT) Pathologist [facility] HIV-1/2 ANTIGEN AND ANTIBODIES, 4TH GENERATION W/ REFLEX NON-REACT JESSENIA NON-REACT JESSENIA [facility] Comment: HIV-1 antigen and HIV-1/HIV-2 [...] purpose. For additional information please refer to http://[employer]/faq/ZLN661 (This link is being provided for informational/ educational purposes only.) The performance of this assay has not been clinically validated in patients less than 2 years old. HIV-1/2 ANTIGEN AND ANTIBODIES, 4TH GENERATION W/ REFLEX NON-REACT JESSENIA NON-REACT JESSENIA [facility] Comment: HIV-1 antigen and HIV-1/HIV-2 [...] purpose. For additional information please refer to http://[employer]/faq/CKZ578 (This link is being provided for informational/ educational purposes only.) The performance of this assay has not been clinically validated in patients less than 2 years old. HIV-1/2 ANTIGEN AND ANTIBODIES, 4TH GENERATION W/ REFLEX NON-REACT JESSENIA NON-REACT JESSENIA [facility] Comment: HIV-1 antigen and HIV-1/HIV-2 [...] purpose. For additional information please refer to http://[employer]/faq/CMZ674 (This link is being provided for informational/ educational purposes only.) The performance of this assay has not been clinically validated in patients less than 2 years old. 05/11/2020 10:5 3 AM EDT us Evelyn Morales MD LAB BLOOD ORDERABLES Final Resul t [facility] [address] from Last 3 Months or Most Recently Relevant to Health Maintenance Insurance [facility] Care Teams Odd Bundle Worker Relationship Specialty Start Date End Date Evelyn Morales MD [address] [place] [phone] PCP - General Family Medicine 07/13/20
--- OUTSIDE RECORDS SUMMARY | 2025-09-23 20:45 | XMS_ITS | Encounter Summary ---
Author Organization [employer] Address [address] [place] [address] [address] [place] [address] Care Team Providers Care Sorting Cows Worker Name Role Phone Evelyn Morales MD Primary Care Provider [phone] Reason for Referral * Consultation (Routine) - Closed Specialty Diagnoses / Procedures Referred By Best mallory Referred To Contact Gastroenterology Diagnoses Tubular adenoma of colon Evelyn Morales MD [address] [place] [phone] Phone: tel: fax: [facility] Referral ID Status Reason Start Date Expiration Date V isits Requested Visits Authorized [id number] Closed Specialty Services Required 04/18/2025 04/18/2026 1 1 Encounter Details Date Type Department Care Team (Late st Contact Info) Description 04/18/2025 Orders Only [facility] [address] [place] [address] [phone] Evelyn Morales MD [address] [place] [address] [phone] Colon cancer screening (Primary Dx); Tubular adenoma [...] documented as of this encounter Care Teams Sorting Cows Worker Relationship Specialty Start Date End Date Evelyn Morales MD [address] [place] [phone] PCP - General Family Medicine 07/13/20 documented as of this encounter
--- OUTSIDE RECORDS SUMMARY | 2025-09-23 20:45 | XMS_ITS | Encounter Summary ---
Author Organization [employer] Address [address] [place] [address] [place] [address] Care Team Providers Care Conservation Educator Name Role Phone Evelyn Morales MD Primary Care Provider [phone] Encounter Details Date Type Department Care Team (Late st Contact Info) Description 09/23/2025 Orders Only GENERIC EXTERNAL DATA DEPARTMENT Provider, Generic External Data Social History Tobacco Use Types Packs/Day Years [...] Procedure Name Priority Date/Time Associated Diagnosis Comments CBC WITH AUTO DIFFERENTIAL Routine 09/23/2025 2:54 PM EST SED RATE BY MODIFIED WESTERGREN Routine 09/23/2025 2:54 PM EST C-REACTIVE PROTEIN Routine 09/23/2025 2: 54 PM EST COMPREHENSIVE METABOLIC PANEL Routine 09/23/2025 2:54 PM EST documented in this encounter Results * C-reactive Protein (09/23/2025 2:54 PM EST) C Reactive Protein 0.19 < or = 0.50 mg/dL [facility] 09/23/2025 2:54 PM EST 09/23/2025 2:58 PM EST us Generic External Data Provider LAB BLOOD ORDERAB LES Final Result [facility] [address] [place] [phone] * (ABNORMAL) Comprehensive Metabolic Panel (09/23/2025 2:54 PM EST) Sodium 141 135 - 145 mmol/L [facility] Potassium 3.8 3.3 - 5.1 mmol/L [facility] Chloride 106 96 - 108 mmol/L [facility] Carbon Dioxide 26 22 - 29 mmol/L [facility] Anion Gap 13 12 - 20 [facility] Urea Nitrogen (BUN) 16 9 - 16 mg/dL [facility] Creatinine, Serum 0.59 0.5 - 1.4 mg/dL [facility] Creatinine Clr Calc Pharmacy 103.5 [facility] Comment:Provided height and weight: 170.18 cm,73.9 kg.eGFR (calculated from the MDRD study equation) and eCrCl(calculated from the Cockcroft-Gault equation) are based ondifferent parameters and may not yield comparable results.If eCrCl result is absurd, please check patient'sheight/weight. Estimated Glomerular Filt Rate >60 [facility] Comment:Chronic Kidney Disea se: Estimated GFR < 60 mL/min/1.80n4Euarwx Kidney Disease: Estimated GFR < 15 mL/min/1.73m2 Glucose 92 60 - 115 mg/dL [facility] Calcium 9.7 8.4 - 10.2 mg/dL [facility] Bilirubin, Total 0.3 0.0 - 1.0 mg/dL [facility] Aspartate Amino Transferase 27 5 - 31 U/L [facility] Alanine Aminotransferase 37(H) 0 - 31 U/L [facility] Total Protein 7.6 6.5 - 8.0 g/dL [facility] Albumin Level 5.1(H) 3.5 - 5.0 g/dL [facility] Alkaline Phosphatase 65 39 - 117 U/L [facility] 09/23/2025 2:54 PM EST 09/23/2025 2:58 PM EST Generic External Data Provider LAB BLOOD ORDERAB LES Final Result Performing Organization Address [facility] Co de Phone Number [facility] [address] [place] [phone] * Sed Rate by Modified Westergren (09/23/2025 2:54 PM EST) Pathologist [facility] Erythrocyte Sedimentation Rate 11 1 - 30 MM/HR [facility] Comment:Patients with polycy themia and many hemoglobin abnormalitiesmay have depressed sed rates whereas patients with anemiamay have elevated sed rates. 09/23/2025 2:54 PM EST 09/23/2025 2:58 PM EST Generic External Data Provider LAB BLOOD ORDERAB LES Final Result Performing Organization Address [facility] Co de Phone Number [facility] [address] [place] [phone] * (ABNORMAL) CBC auto differential (09/23/2025 2:54 PM EST) Pathologist [facility] White Blood Count 7.2 4.8 - 10.8 X10*3/uL [facility] Red Blood Count 5.06 4.20 - 5.50 X10*6/uL [facility] Hemoglobin 14.9 12.0 - 16.0 g/dl [facility] Hematocrit 44.5 37.0 - 47.0 % [facility] Mean Corpuscular Volume 87.9 80.0 - 98.0 fL [facility] Mean Corpuscular Hemoglobin 29.4 27.0 - 33.0 pg [facility] Mean Corpuscular HGB Conc 33.5 31.0 - 35.0 g/dl [facility] Red Cell Distribution Width 13.7 11.0 - 16.0 % [facility] Platelet Count 272 160 - 400 X10*3/uL [facility] Mean Platelet Volume 9.8 9.4 - 12.3 fL [facility] Neutrophils Percent Auto 60.1 45 - 73 % [facility] Imm Gran Pct Auto 0.3 0.0 - 0.4 % [facility] Lymphocytes Percent Auto 28.0 20 - 40 % [facility] Monocytes Percent Auto 6.4 2 - 11 % [facility] Eosinophils Percent Auto 4.4(H) 0 - 4 % [facility] Basophils Percent Auto 0.8 0 - 2 % [facility] NRBC Pct Auto 0.0 0.0 - 0.2 /100WBC [facility] Neutrophils Absolute Auto 4.4 2.0 - 8.3 x10*3/uL [facility] Imm Gran Abs Auto 0.02 0.00 - 0.03 X10*3/uL [facility] Lymphocytes Absolute Auto 2.0 1.2 - 4.9 X10*3/uL [facility] Monocytes Absolute Auto 0.5 0.1 - 1.2 X10*3/uL [facility] Eosinophils Absolute Auto 0.3 0.0 - 0.4 X10*3/uL [facility] Basophils Absolute Auto 0.1 0.0 - 0.2 X10*3/uL [facility] NRBC Abs Auto 0.000 0.0 - 0.012 X10*3/uL [facility] 09/23/2025 2:54 PM EST 09/23/2025 2:58 PM EST us Generic External Data Provider LAB BLOOD ORDERAB LES Final Result [facility] [address] [place] [phone] documented in this encounter Visit Diagnoses Not on filedocumented in this encounter Additional Health Concerns Assessment Noted Time PHQ-9 Depression Total Score: 024 11:55 AM EDT documented as of this encounter Care Teams Conservation Educator Relationship Specialty Start Date End Date Evelyn Morales MD [address] [place] [phone] PCP - General Family Medicine 07/13/20 documented as of this encounter
--- OUTSIDE RECORDS SUMMARY | 2025-09-23 20:45 | XMS_ITS | Clinical Summary ---
Author Organization [facility] Prior to 03/12/[address] [place] [address] Care Team Providers Care Double End Production Grinder Name Role Phone Evelyn Morales MD Primary Care Provider [phone] Social History Tobacco Use Types Packs/Day Years [...] age to complete this topic Care Teams Double End Production Grinder Relationship Specialty Start Date End Date Evelyn Morales MD [address] [place] [phone] PCP - General Family Medicine 12/05/20
== END 2025-09-23 17:21 | disposition home or self-care (01) ==
PROVIDERS: Physician Assistant Medical; Emergency Provider Emergency Medicine; PCP Family Medicine
DX: M54.50 Low back pain, unspecified (principal); F17.210 Nicotine dependence, cigarettes, uncomplicated
CPT/HCPCS: 36415; 80053; 85025; 85652; 86140; 99282; 99283